=== PATIENT | female | born 1955 | race Caucasian/White ===

== ENCOUNTER 2017-01-12 08:45 | Emergency (ER) | payer OTHER ==
[~2017-01-12] VITALS: Ht 162.6 cm; Wt 109.0 kg
[~2017-01-12 08:45] MED LIST: CEFD1CAP14 PO; LISI-461 PO; SIMV20TA2 PO; ZOLP5TAB6 PO
[2017-01-12 08:50] VITALS: TEMP 36.8; Ht 162.6 cm; Wt 109.0 kg
--- NOTE | 2017-01-12 09:34 | EMERGENCY ROOM VISIT NOTE ---
History Report prepared by Baljit: Tala Kolb Under the Supervision of: Dr. Niels Garcia M.D. First contact with patient: 08:55 Chief Complaint: MENTAL HEALTH EVALUATION Stated Complaint: MR History of Present Illness The patient is a 61 year old female who presents to the Emergency Room with complaints of the need for a mental health evaluation. The patient states that this morning she was woken by police asking her to come to the emergency department for further evaluation. Per the [facility] petition, the other tenets in the patient's apartment building have been concerned about the patient's hoarding and insomnia. The patient states that she has a history of bi-polar and states that she follows with a psychiatrist. She additionally notes a recent sinus cold and states that she was placed on antibiotics two weeks ago. The patient states that she was placed on Doxycycline on Wednesday after she broke three teeth. The patient does note that she has a history of insomnia and states that she is on Remeron to help with sleep. She notes that last November she had a stroke and was unable to work anymore. The patient states that due to this she lost everything and was living with friends until she got her social security in March. She states that typically she is easy to get along with, but ever since she moved into her apartment building, the other tenets do not get along with her. The patient states that every day there is something new and is unsure where it is all coming from. Source of History: patient Onset: this morning Position: other (global) Timing: other (mental health evaluation) Note: Associated Symptoms: insomnia Review of Systems See HPI for pertinent positives & negatives. A total of 10 systems reviewed and were otherwise negative. Past Medical & Surgical Medical Problems: (1) CVA (cerebral vascular accident) Family History No pertinent family history stated. Social History Smoking Status: Current Every Day Smoker Housing Status: lives alone Occupation Status: unemployed Current/Historical Medications Scheduled Clindamycin Hcl (Cleocin), 300 MG PO QID Lisinopril (Zestril), 10 MG PO DAILY Pioglitazone (Actos), 1 TAB PO DAILY Simvastatin (Zocor), 20 MG PO QPM Sitagliptin Phosphate (Januvia), 100 MG PO DAILY Scheduled PRN Mirtazapine (Remeron), 30-45 MG PO HS PRN for Sleep Allergies Coded Allergies: Codeine (Verified Allergy, Unknown, ., 01/12/17) Penicillins (Verified Allergy, Unknown, ., 01/12/17) Uncoded Allergies: METHIOLATE (Allergy, Unknown, 11/02/02) Physical Exam Vital Signs Date Time Temp Pulse Resp B/P Pulse Ox O2 Delivery O2 Flow Rate FiO2 01/12/17 13:58 92 18 181/71 99 Room Air 01/12/17 10:15 96 20 145/98 95 Room Air 01/12/17 08:50 36.8 100 20 196/96 94 Room Air Physical Exam GENERAL: Patient is coughing on exam, healthy-appearing well-nourished HEAD: Normocephalic atraumatic EYES: Ocular movements intact pupils equal and react to light OROPHARYNX mucous membranes are moist no exudates present no erythema or edema present NECK: Supple no nuchal rigidity CHEST: Good equal expansion LUNGS: Clear and equal to auscultation CARDIAC: Normal S1 and S2 ABDOMEN: Soft nontender no guarding BACK: No CVA tenderness EXTREMITIES: No pain upon palpation normal muscle strength in all groups no clubbing cyanosis or edema NEURO: Patient is following commands is answering questions appropriately. Alert and oriented x3 Cranial Nerves 2-12 grossly intact Medical Decision & Procedures ER Provider Diagnostic Interpretation: X-ray results as stated below per interpretation by me and the radiologist: SINGLE VIEW CHEST CLINICAL HISTORY: Cough. FINDINGS: An AP, portable, upright chest radiograph is compared to chest x-ray and chest CT dated 12/05/2015. The examination is degraded by portable technique, large body habitus, and patient rotation. The heart is mildly enlarged. The pulmonary vasculature is noncongested. There is mild left basilar atelectasis. The lungs and pleural spaces are otherwise clear. No pneumothorax is seen. The skeletal structures are osteopenic. The bony thorax is grossly intact. IMPRESSION: No active disease in the chest. Electronically signed by: Rl Holliday M.D. 01/12/2017 10:16 AM Dictated Date/Time: 01/12/2017 10:13 AM Laboratory Results 01/12/17 09:20 Red Blood Count 4.89, Mean Corpuscular Volume 85.9, Mean Corpuscular Hemoglobin 28.0, Mean Corpuscular Hemoglobin Concent 32.6, Mean Platelet Volume 8.8, Neutrophils (%) (Auto) 64.3, Lymphocytes (%) (Auto) 27.7, Monocytes (%) (Auto) 5.1, Eosinophils (%) (Auto) 2.0, Basophils (%) (Auto) 0.5, Neutrophils # (Auto) 6.82, Lymphocytes # (Auto) 2.93, Monocytes # (Auto) 0.54, Eosinophils # (Auto) 0.21, Basophils # (Auto) 0.05 01/12/17 09:20 Test 01/12/17 09:20 01/12/17 09:21 01/12/17 10:07 White Blood Count 10.59 K/uL (4.8-10.8) Red Blood Count 4.89 M/uL (4.2-5.4) Hemoglobin 13.7 g/dL (12.0-16.0) Hematocrit 42.0 % (37-47) Mean Corpuscular Volume 85.9 fL (80-100) Mean Corpuscular Hemoglobin 28.0 pg (25-34) Mean Corpuscular Hemoglobin Concent 32.6 g/dl (32-36) Platelet Count 275 K/uL (130-400) Mean Platelet Volume 8.8 fL (7.4-10.4) Neutrophils (%) (Auto) 64.3 % Lymphocytes (%) (Auto) 27.7 % Monocytes (%) (Auto) 5.1 % Eosinophils (%) (Auto) 2.0 % Basophils (%) (Auto) 0.5 % Neutrophils # (Auto) 6.82 K/uL (1.4-6.5) Lymphocytes # (Auto) 2.93 K/uL (1.2-3.4) Monocytes # (Auto) 0.54 K/uL (0.11-0.59) Eosinophils # (Auto) 0.21 K/uL (0-0.5) Basophils # (Auto) 0.05 K/uL (0-0.2) RDW Standard Deviation 42.9 fL (36.4-46.3) RDW Coefficient of Variation 13.8 % (11.5-14.5) Immature Granulocyte % (Auto) 0.4 % Immature Granulocyte # (Auto) 0.04 K/uL (0.00-0.02) Anion Gap 8.0 mmol/L (3-11) Est Creatinine Clear Calc Drug Dose 97.8 ml/min Estimated GFR () 104.0 Estimated GFR (Non- 89.8 BUN/Creatinine Ratio 11.0 (10-20) Calcium Level 9.7 mg/dl (8.5-10.1) Total Bilirubin 0.3 mg/dl (0.2-1) Direct Bilirubin < 0.1 mg/dl (0-0.2) Aspartate Amino Transf (AST/SGOT) 47 U/L (15-37) Alanine Aminotransferase (ALT/SGPT) 54 U/L (12-78) Alkaline Phosphatase 137 U/L (45-117) Total Protein 7.2 gm/dl (6.4-8.2) Albumin 3.3 gm/dl (3.4-5.0) Thyroid Stimulating Hormone (TSH) 1.140 uIu/ml (0.300-4.500) Ethyl Alcohol mg/dL < 3.0 mg/dl (0-3) Bedside Glucose 205 mg/dl (70-90) Urine Color YELLOW Urine Appearance CLEAR (CLEAR) Urine pH 6.0 (4.5-7.5) Urine Specific [place] 1.019 (1.000-1.030) Urine Protein NEG (NEG) Urine Glucose (UA) NEG (NEG) Urine Ketones NEG (NEG) Urine Occult Blood NEG (NEG) Urine Nitrite NEG (NEG) Urine Bilirubin NEG (NEG) Urine Urobilinogen NEG (NEG) Urine Leukocyte Esterase TRACE (NEG) Urine WBC (Auto) 1-5 /hpf (0-5) Urine RBC (Auto) 0-4 /hpf (0-4) Urine Hyaline Casts (Auto) 0 /lpf (0-5) Urine Epithelial Cells (Auto) >30 /lpf (0-5) Urine Bacteria (Auto) NEG (NEG) Urine Opiates Screen NEG (NEG) Urine Methadone, Qualitative NEG (NEG) Urine Barbiturates NEG (NEG) Urine Phencyclidine (PCP) Level NEG (NEG) Ur Amphetamine/Methamphetamine NEG (NEG) MDMA (Ecstasy) Screen NEG (NEG) Urine Benzodiazepines Screen NEG (NEG) Urine Cocaine Metabolite NEG (NEG) Urine Marijuana (THC) NEG (NEG) Labs reviewed by ED physician. Medications Administered Medications (Trade) Dose Ordered Sig/Thi Route Start Time Stop Time Status Last Admin Dose Admin Albuterol Sulfate (Ventolin 0.5% 2.5MG/0.5ML Neb) 2.5 mg NOW STAT INH 01/12/17 09:35 01/12/17 09:37 DC 01/12/17 09:55 2.5 MG Acetaminophen (Tylenol Tab) 1,000 mg NOW STAT PO 01/12/17 11:37 01/12/17 11:38 DC 01/12/17 12:11 1,000 MG ED Course 09: Past medical records reviewed. The patient was evaluated in room A5. A complete history and physical examination was performed. 0935: Ordered Albuterol Sulfate 2.5 mg INH. 1137: Ordered Tylenol Tab 1000 mg PO. 1410: I reevaluated the patient and she is doing well. I discussed all the exam findings with her and I discussed the treatment plan. She verbalized complete understanding and agreement. She is ready to go home. Medical Decision Differential diagnosis: Etiologies such as mood disorder, infection, hypoglycemia, electrolyte abnormalities, cardiac sources, intracerebral event, toxicologic, neurologic, as well as others were entertained. This is a 61-year-old female who presents emergency department under a 302 petition however upon arrival to the emergency department the patient has no evidence of suicidal or homicidal ideation. In addition according to the 302 the patient has no evidence of suicidal or homicidal ideation. There was also no assessment done in the field. I felt that the patient was mentally stable and is following up with her outpatient psychiatrist. For this reason she was evaluated by case management here in the emergency department who also felt that the patient was well enough to be discharged home. She was medically cleared by me. She was wheezing and therefore was given a breathing treatment in the emergency department. I do feel that the patient as well as to be discharged home. Patient was in agreement with the treatment plan. Impression Primary Impression: Mood disorder Scribe Attestation The scribe's documentation has been prepared under my direction and personally reviewed by me in its entirety. I confirm that the note above accurately reflects all work, treatment, procedures, and medical decision making performed by me. Departure Information Dispostion Home / Self-Care Referrals Chuy Clemente D.O. (PCP) Forms HOME CARE DOCUMENTATION FORM, IMPORTANT VISIT INFORMATION, School Instructions, Work Instructions Patient Instructions My [facility] Additional Instructions You received narcotic or benzodiazepene medication while in the emergency room today. Do not drive, operate heavy machinery, or drink alcohol under the influence of this medication. You have been examined and treated today on an emergency basis only. This is not a substitute for, or an effort to provide, complete comprehensive medical care. It is impossible to recognize and treat all injuries or illnesses in a single emergency department visit. It is therefore important that you follow up closely with Dr Clemente. Call as soon as possible for an appointment. Thank you for your time and consideration. I look forward to speaking with you again soon. Please don't hesitate to call us if you have any questions.
[2017-01-12] MEDS ORDERED: ALBUTEROL 0.5% NEB SOLN 2.5 MG/0.5 ML VIAL INH STA (09:35)
[2017-01-12 09:42] LABS: BASO % 0.5 %; BASO ABS # 0.05 K/uL (0-0.2); COMPLETE YES; IG% 0.4 %; LYMPH % 27.7 %; LYMPH ABS # 2.93 K/uL (1.2-3.4); MEAN CELL VOLUME 85.9 fL (80-100); MEAN CORPUSCULAR HGB CONC 32.6 g/dl (32-36); MEAN PLATELET VOLUME 8.8 fL (7.4-10.4); MONO % 5.1 %; NEUT % 64.3 %; PLATELET COUNT 275 K/uL (130-400); RED BLOOD COUNT 4.89 M/uL (4.2-5.4); WHITE BLOOD COUNT 10.59 K/uL (4.8-10.8)
[2017-01-12 10:01] LABS: CALCIUM 9.7 mg/dl (8.5-10.1)
[2017-01-12 10:06] LABS: ALT/SGPT 54 U/L (12-78); BLOOD UREA NITROGEN 8 mg/dl (7-18); CARBON DIOXIDE 25 mmol/L (21-32); CHLORIDE 105 mmol/L (98-107); CREATININE 0.72 mg/dl (0.60-1.20); GLUCOSE 217 mg/dl (70-99); POTASSIUM 4.1 mmol/L (3.5-5.1); SODIUM 138 mmol/L (136-145)
[2017-01-12 10:16] LABS: ALKALINE PHOSPHATASE 137 U/L (45-117); AST/SGOT 47 U/L (15-37)
--- NOTE | 2017-01-12 10:18 | DIAGNOSTIC IMAGING REPORT ---
SINGLE VIEW CHEST CLINICAL HISTORY: Cough. FINDINGS: An AP, portable, upright chest radiograph is compared to chest x-ray and chest CT dated 12/05/2015. The examination is degraded by portable technique, large body habitus, and patient rotation. The heart is mildly enlarged. The pulmonary vasculature is noncongested. There is mild left basilar atelectasis. The lungs and pleural spaces are otherwise clear. No pneumothorax is seen. The skeletal structures are osteopenic. The bony thorax is grossly intact. IMPRESSION: No active disease in the chest. Electronically signed by: Rl Holliday M.D. 01/12/2017 10:16 AM Dictated Date/Time: 01/12/2017 10:13 AM
[2017-01-12 10:26] LABS: MANUAL MICROSCOPIC REQUIRED? NO; REVIEW REQ? NO; URINE APPEARANCE CLEAR (CLEAR); URINE BILIRUBIN NEG (NEG); URINE COLOR YELLOW; URINE EPITHELIAL CELL AUTO >30 /lpf (0-5); URINE NITRITE NEG (NEG); URINE SPECIFIC GRAVITY 1.019 (1.000-1.030); UROBILINOGEN NEG (NEG)
[2017-01-12] MEDS ORDERED: MIRT30TA PO (10:32)
[2017-01-12] MEDS ORDERED: SITA100T3 PO (10:43)
[2017-01-12] MEDS ORDERED: CLIN300C2 PO (10:43)
[2017-01-12] MEDS ORDERED: ACT30 PO (10:43)
[2017-01-12 10:56] LABS: BENZODIAZEPINE, URINE NEG (NEG); COCAINE,URINE NEG (NEG); PHENCYCLIDINE, URINE NEG (NEG)
[2017-01-12] MEDS ORDERED: ACETAMINOPHEN 500 MG TAB PO STA (11:37)
[2017-01-12 13:58] VITALS: BP 181/71; PULSE 92; O2SAT 99
== END 2017-01-12 14:35 | disposition home or self-care (01) ==
LOC: C.EDB 08:47 → C.EDA 14:35
DX: Z00.8 Encounter for other general examination (principal); F31.9 Bipolar disorder, unspecified; Z86.73 Personal history of transient ischemic attack (TIA), and cerebral infarction without residual deficits; F17.210 Nicotine dependence, cigarettes, uncomplicated; R05 Cough

== ENCOUNTER 2017-05-05 11:02 | Emergency (ER) | payer OTHER ==
[~2017-05-05] VITALS: Ht 162.6 cm; Wt 66.4 kg
[~2017-05-05 11:02] MED LIST changes: +ACT30 PO; -CEFD1CAP14 PO; +CLIN300C2 PO; +MIRT30TA PO; +SITA100T3 PO; -ZOLP5TAB6 PO
[2017-05-05 11:10] VITALS: TEMP 36.8
[2017-05-05] MEDS ORDERED: SODIUM CHLORIDE 0.9% 1000ML 1,000 ML IV STA ×2 (11:24)
[2017-05-05] MEDS ORDERED: INSULIN HUMAN REGULAR SC STA (11:24)
[2017-05-05] MEDS ORDERED: PROCHLORPERAZINE 5 MG/ML 2 ML VIAL IV STA (11:24)
[2017-05-05] MEDS ORDERED: KETOROLAC TROMETHAMINE 30 MG/ML VIAL IV STA (11:24)
[2017-05-05] MEDS ORDERED: DiphenhydrAMINE HCL 50 MG/ML VIAL IV STA (11:24)
--- NOTE | 2017-05-05 11:30 | EMERGENCY ROOM VISIT NOTE ---
History Report prepared by Baljit: Sarahi Aguilar Under the Supervision of: Dr. Niels Garcia M.D. First contact with patient: 11:08 Chief Complaint: ILLNESS Stated Complaint: GENERALIZED ILLNESS History of Present Illness The patient is a 62 year old female who presents to the Emergency Room with complaints of a fever beginning today. The patient also complains of a constant headache and achiness. The patient also is having abdominal pain and states that she is unable to focus when she reads. She denies having chest pain. She reports that she has not taken any medications for her symptoms. Source of History: patient Onset: today Position: other (global) Quality: other (fever) Associated Symptoms: + headache, + abdominal pain, No chest pain Review of Systems See HPI for pertinent positives & negatives. A total of 10 systems reviewed and were otherwise negative. Past Medical & Surgical Medical Problems: (1) CVA (cerebral vascular accident) (2) History of non-insulin dependent diabetes mellitus Family History No pertinent family history stated. Social History Smoking Status: Former Smoker Housing Status: lives alone Occupation Status: unemployed Current/Historical Medications Scheduled Lisinopril (Zestril), 10 MG PO DAILY Pioglitazone (Actos), 1 TAB PO DAILY Simvastatin (Zocor), 20 MG PO QPM Sitagliptin Phosphate (Januvia), 100 MG PO DAILY Scheduled PRN Mirtazapine (Remeron), 30-45 MG PO HS PRN for Sleep Allergies Coded Allergies: Codeine (Verified Allergy, Unknown, ., 01/12/17) Penicillins (Verified Allergy, Unknown, ., 01/12/17) Uncoded Allergies: METHIOLATE (Allergy, Unknown, 11/02/02) Physical Exam Vital Signs Date Time Temp Pulse Resp B/P (MAP) Pulse Ox O2 Delivery O2 Flow Rate FiO2 05/05/17 15:57 91 17 129/73 95 05/05/17 15:05 87 18 143/67 93 Room Air 05/05/17 13:53 93 05/05/17 13:38 92 18 144/75 95 Room Air 05/05/17 12:38 90 16 114/71 96 Room Air 96 107/75 93 109/59 05/05/17 11:48 96 Room Air 05/05/17 11:10 92 05/05/17 11:10 36.8 94 18 99/40 96 Room Air Physical Exam GENERAL: Patient is a healthy-appearing well-nourished female HEAD: Normocephalic atraumatic EYES: Ocular movements intact pupils equal and react to light OROPHARYNX mucous membranes are moist no exudates present no erythema or edema present NECK: Supple no nuchal rigidity CHEST: Good equal expansion LUNGS: Clear and equal to auscultation CARDIAC: Normal S1 and S2 ABDOMEN: Soft nontender no guarding BACK: No CVA tenderness EXTREMITIES: No pain upon palpation normal muscle strength in all groups no clubbing cyanosis or edema NEURO: Patient is following commands and answering questions appropriately. Alert and oriented x3 Cranial Nerves 2-12 grossly intact Medical Decision & Procedures ER Provider Diagnostic Interpretation: Radiology results as stated below per my review and radiologist interpretation: CT HEAD WITHOUT CONTRAST (CT) CLINICAL HISTORY: Headache, nausea. COMPARISON STUDY: 12/05/2015 TECHNIQUE: Axial CT of the brain is performed from the vertex to the skull base. IV contrast was not administered for this examination. A dose lowering technique was utilized adhering to the principles of ALARA. CT DOSE: 614.27 mGy.cm FINDINGS: No intra or extra-axial mass lesions are visualized. There is no CT evidence of acute cortical infarction. There is no evidence of midline shift. There is no acute hemorrhage. No calvarial fractures are visualized. There is no evidence of pathologic ventricular dilatation. There is no evidence of acute sinusitis IMPRESSION: No acute intracranial findings Electronically signed by: César Vital M.D. 05/05/2017 12:25 PM Dictated Date/Time: 05/05/2017 12:24 PM Laboratory Results 05/05/17 11:24 Red Blood Count 4.82, Mean Corpuscular Volume 85.7, Mean Corpuscular Hemoglobin 28.8, Mean Corpuscular Hemoglobin Concent 33.7, Mean Platelet Volume 8.8, Neutrophils (%) (Auto) 78.0, Lymphocytes (%) (Auto) 15.5, Monocytes (%) (Auto) 5.1, Eosinophils (%) (Auto) 0.6, Basophils (%) (Auto) 0.4, Neutrophils # (Auto) 8.77, Lymphocytes # (Auto) 1.74, Monocytes # (Auto) 0.57, Eosinophils # (Auto) 0.07, Basophils # (Auto) 0.04 8/16/17 11:24 Test 05/05/17 11:24 05/05/17 11:40 05/05/17 12:05 05/05/17 13:53 White Blood Count 11.23 K/uL (4.8-10.8) Red Blood Count 4.82 M/uL (4.2-5.4) Hemoglobin 13.9 g/dL (12.0-16.0) Hematocrit 41.3 % (37-47) Mean Corpuscular Volume 85.7 fL (80-100) Mean Corpuscular Hemoglobin 28.8 pg (25-34) Mean Corpuscular Hemoglobin Concent 33.7 g/dl (32-36) Platelet Count 216 K/uL (130-400) Mean Platelet Volume 8.8 fL (7.4-10.4) Neutrophils (%) (Auto) 78.0 % Lymphocytes (%) (Auto) 15.5 % Monocytes (%) (Auto) 5.1 % Eosinophils (%) (Auto) 0.6 % Basophils (%) (Auto) 0.4 % Neutrophils # (Auto) 8.77 K/uL (1.4-6.5) Lymphocytes # (Auto) 1.74 K/uL (1.2-3.4) Monocytes # (Auto) 0.57 K/uL (0.11-0.59) Eosinophils # (Auto) 0.07 K/uL (0-0.5) Basophils # (Auto) 0.04 K/uL (0-0.2) RDW Standard Deviation 43.4 fL (36.4-46.3) RDW Coefficient of Variation 13.9 % (11.5-14.5) Immature Granulocyte % (Auto) 0.4 % Immature Granulocyte # (Auto) 0.04 K/uL (0.00-0.02) Anion Gap 9.0 mmol/L (3-11) Est Creatinine Clear Calc Drug Dose 56.8 ml/min Estimated GFR () 73.9 Estimated GFR (Non- 63.7 BUN/Creatinine Ratio 9.8 (10-20) Calcium Level 8.6 mg/dl (8.5-10.1) Total Bilirubin 0.5 mg/dl (0.2-1) Direct Bilirubin 0.1 mg/dl (0-0.2) Aspartate Amino Transf (AST/SGOT) 32 U/L (15-37) Alanine Aminotransferase (ALT/SGPT) 48 U/L (12-78) Alkaline Phosphatase 169 U/L (45-117) Total Protein 6.9 gm/dl (6.4-8.2) Albumin 3.2 gm/dl (3.4-5.0) Beta-Hydroxybutyric Acid 1.08 mg/dL (0.2-2.81) Thyroid Stimulating Hormone (TSH) 0.829 uIu/ml (0.300-4.500) Lyme Disease IgG Antibody NEG (NEG) Lyme Disease IgM Antibody NEG (NEG) Urine Color YELLOW Urine Appearance CLEAR (CLEAR) Urine pH 7.0 (4.5-7.5) Urine Specific [place] 1.010 (1.000-1.030) Urine Protein NEG (NEG) Urine Glucose (UA) 3+ (NEG) Urine Ketones NEG (NEG) Urine Occult Blood NEG (NEG) Urine Nitrite NEG (NEG) Urine Bilirubin NEG (NEG) Urine Urobilinogen NEG (NEG) Urine Leukocyte Esterase NEG (NEG) Influenza Type A (RT-PCR) Neg for Influ A (NEG) Influenza Type A Antigen Neg for Influ A (NEG) Influenza Type B Antigen Neg for Influ B (NEG) Influenza Type B (RT-PCR) Neg for Influ B (NEG) CSF Color PALE YELLOW CSF Appearance CLEAR CSF WBC 4 /uL (0-5) CSF RBC 1070 /uL (0) CSF Xanthrochromic NO XANTHOCHROMIA CSF Cell Count Tube # 1 CSF Chemistry Tube # 2 CSF Glucose 109 mg/dl (40-70) CSF Total Protein 37.1 mg/dl (15.0-45.0) Test 05/05/17 14:15 Bedside Glucose 173 mg/dl (70-90) Labs reviewed by ED physician. Medications Administered Medications (Trade) Dose Ordered Sig/Thi Route Start Time Stop Time Status Last Admin Dose Admin Sodium Chloride 1,000 ml @ 999 mls/hr Q1H1M STAT IV 05/05/17 11:24 05/05/17 12:24 DC 05/05/17 11:57 999 MLS/HR Ketorolac Tromethamine (Toradol Inj) 30 mg NOW STAT IV 05/05/17 11:24 05/05/17 11:30 DC 05/05/17 12:02 30 MG Prochlorperazine Edisylate (Compazine Inj) 10 mg NOW STAT IV 05/05/17 11:24 05/05/17 11:30 DC 05/05/17 12:02 10 MG Diphenhydramine HCl (Benadryl Inj) 50 mg NOW STAT IV 05/05/17 11:24 05/05/17 11:30 DC 05/05/17 12:02 50 MG Sodium Chloride 1,000 ml @ 999 mls/hr Q1H1M STAT IV 05/05/17 11:24 05/05/17 12:24 DC 05/05/17 11:57 999 MLS/HR Insulin Human Regular (novoLIN-R U-100 PER UNIT) 10 units NOW STAT SC 05/05/17 11:48 05/05/17 11:49 DC 05/05/17 12:02 10 UNITS Acetaminophen (Tylenol Tab) 1,000 mg NOW STAT PO 05/05/17 13:30 05/05/17 13:31 DC 05/05/17 14:02 1,000 MG Magnesium Sulfate (Magnesium Sulfate) 1 gm NOW STAT IV 05/05/17 13:52 05/05/17 13:54 DC 05/05/17 14:02 1 GM Dexamethasone Sodium Phosphate (Decadron Inj) 10 mg NOW ONCE IV 05/05/17 14:00 05/05/17 14:01 DC 05/05/17 14:02 10 MG Procedure Lumbar Puncture Indication: headache. Verbal consent was obtained after the risks and benefits were explained, including but not limited to headache, bleeding/clotting, scarring, infection, pain, and bone/joint/nerve damage. At this time, the risks of the procedure are less than the risks of NOT performing the procedure. A time out was taken and the correct patient and site identified. The patient was placed in the upright position and the back was prepped with betadine and draped in the standard fashion. The L3 intervertebral space was identified, anesthetized locally with 1 % lidocaine without epinephrine, and the spinal needle was inserted through the skin with the bevel parallel to the dural fibers. The needle was carefully advanced into the lumbar cistern and 4 tubes of clear CSF was obtained. The stylet was replaced and the needle was removed. A bandaid was placed and the patient was placed in the supine position. The patient tolerated the procedure well and there were no complications. ECG Indication: weakness Rate (beats per minute): 91 Rhythm: normal sinus Findings: no acute ischemic change, no ectopy ED Course 1120: Past medical records reviewed. The patient was evaluated in room C5. A complete history and physical examination was performed. 1124: Ordered Sodium Chloride 1,000 ml @ 999 mls/hr IV, Insulin Human Regular 10 units SC, Benadryl Inj 50 mg IV, Compazine Inj 10 mg IV, Toradol Inj 30 mg IV , Sodium Chloride 1,000 ml @ 999 mls/hr IV. Medical Decision Differential diagnosis: Etiologies such as viral syndrome, otitis, pharyngitis, pneumonia, influenza, meningitis, urinary tract infection, sepsis, bacteremia, as well as others were entertained. This is a 62-year-old female who presents emergency department complaining of the worst headache of her life. In addition the patient is also has an elevation in her white blood count cell count. I try to get the patient's symptoms under control using conservative measures including normal saline bolus , Toradol, Compazine, Benadryl however the patient still complaining of severe headache. At this point based on the patient's complaint as well as her laboratory work I recommended a lumbar puncture be performed. The patient orally consented to the lumbar puncture and this was done as above. The patient 's lumbar puncture laboratory work I believe is normal. The patient is hyperglycemic and was given insulin in the emergency department. She was given additional pain medication and fluid for her headache. At this point I do feel that the patient as well as that she can be discharged home for follow-up with her primary care physician. Patient was in agreement with the treatment plan. Medication Reconcilliation Current Medication List: was personally reviewed by me Blood Pressure Screening Patient's blood pressure: Low blood pressure Impression Primary Impression: Headache Scribe Attestation The scribe's documentation has been prepared under my direction and personally reviewed by me in its entirety. I confirm that the note above accurately reflects all work, treatment, procedures, and medical decision making performed by me. Departure Information Dispostion Home / Self-Care Referrals Chuy Clemente D.O. (PCP) Patient Instructions My [facility] Problem Qualifiers Primary Impression: Headache Headache type: unspecified Headache chronicity pattern: unspecified pattern Intractability: not intractable Qualified Codes: R51 - Headache
[2017-05-05 11:37] LABS: BASO % 0.4 %; BASO ABS # 0.04 K/uL (0-0.2); COMPLETE YES; EOS % 0.6 %; HEMATOCRIT 41.3 % (37-47); IG% 0.4 %; LYMPH % 15.5 %; LYMPH ABS # 1.74 K/uL (1.2-3.4); MEAN CELL VOLUME 85.7 fL (80-100); MEAN CORPUSCULAR HEMOGLOBIN 28.8 pg (25-34); MEAN CORPUSCULAR HGB CONC 33.7 g/dl (32-36); MEAN PLATELET VOLUME 8.8 fL (7.4-10.4); MONO % 5.1 %; PLATELET COUNT 216 K/uL (130-400); RED BLOOD COUNT 4.82 M/uL (4.2-5.4); WHITE BLOOD COUNT 11.23 K/uL (4.8-10.8)
[2017-05-05 11:48] VITALS: O2SAT 96; Ht 162.6 cm; Wt 66.4 kg
[2017-05-05] MEDS ORDERED: NovoLIN-R INSULIN PER UNIT CHARGE SC STA (11:48)
[2017-05-05 11:55] LABS: BUN/CREATININE RATIO 9.8 (10-20); CALCIUM 8.6 mg/dl (8.5-10.1); CREATININE 0.95 mg/dl (0.60-1.20); POTASSIUM 4.4 mmol/L (3.5-5.1)
[2017-05-05 12:05] LABS: BETA-HYDROXYBUTYRATE 1.08 mg/dL (0.2-2.81); THYROID STIMULATING HORMONE 0.829 uIu/ml (0.300-4.500)
[2017-05-05 12:05] LABS: URINE APPEARANCE CLEAR (CLEAR); URINE BILIRUBIN NEG (NEG); URINE COLOR YELLOW; URINE NITRITE NEG (NEG); UROBILINOGEN NEG (NEG)
[2017-05-05 12:14] LABS: MANUAL MICROSCOPIC REQUIRED? NO; REVIEW REQ? NO
--- NOTE | 2017-05-05 12:27 | DIAGNOSTIC IMAGING REPORT ---
CT HEAD WITHOUT CONTRAST (CT) CLINICAL HISTORY: Headache, nausea. COMPARISON STUDY: 12/05/2015 TECHNIQUE: Axial CT of the brain is performed from the vertex to the skull base. IV contrast was not administered for this examination. A dose lowering technique was utilized adhering to the principles of ALARA. CT DOSE: 614.27 mGy.cm FINDINGS: No intra or extra-axial mass lesions are visualized. There is no CT evidence of acute cortical infarction. There is no evidence of midline shift. There is no acute hemorrhage. No calvarial fractures are visualized. There is no evidence of pathologic ventricular dilatation. There is no evidence of acute sinusitis IMPRESSION: No acute intracranial findings Electronically signed by: César Vital M.D. 05/05/2017 12:25 PM Dictated Date/Time: 05/05/2017 12:24 PM
--- NOTE | 2017-05-05 13:16 | DIAGNOSTIC IMAGING REPORT ---
ABDOMEN 2VIEW W/PA CHEST RTN CLINICAL HISTORY: Diffuse abdominal pain COMPARISON STUDY: Chest x-ray dated 01/12/2017 FINDINGS: The heart is mildly enlarged. There is no free intraperitoneal air. There is no lobar consolidation. Erect and supine views the abdomen reveal moderate stool throughout the colon. There are no transition zone to indicate bowel obstruction. There are surgical clips in the right upper quadrant consistent with a prior cholecystectomy. IMPRESSION: No evidence of bowel obstruction. No evidence of free air. Electronically signed by: César Vital M.D. 05/05/2017 1:15 PM Dictated Date/Time: 05/05/2017 1:14 PM
[2017-05-05] MEDS ORDERED: ACETAMINOPHEN 500 MG TAB PO STA (13:30)
[2017-05-05] MEDS ORDERED: MAGNESIUM SULFATE 1GM / D5W 1 GM BAG IV STA (13:52)
[2017-05-05] MEDS ORDERED: DEXAMETHASONE SOD INJ 10 MG/ML VIAL IV ONE (14:00)
[2017-05-05 14:27] LABS: CSF TOTAL PROTEIN 37.1 mg/dl (15.0-45.0)
[2017-05-05 14:44] LABS: INFLUENZA A PCR Neg for Influ A (NEG); INFLUENZA B PCR Neg for Influ B (NEG)
[2017-05-05 14:46] LABS: CSF APPEARANCE CLEAR; CSF COLOR PALE YELLOW
[2017-05-05 14:49] LABS: CSF APPEARANCE CLEAR; CSF COLOR COLORLESS; CSF XANTHOCHROMIC NO XANTHOCHROMIA
[2017-05-05 15:03] LABS: CSF CHEMISTRY TUBE # 2
[2017-05-05 15:17] LABS: LYME DISEASE AB IGG NEG (NEG); LYME DISEASE AB IGM NEG (NEG)
[2017-05-05 15:22] LABS: CSF XANTHOCHROMIC NO XANTHOCHROMIA
[2017-05-05 15:57] VITALS: BP 129/73; PULSE 91; O2SAT 95
[2017-05-08 17:36] LABS: HSV TYPE 1 DNA Not Detected (Not Detected); HSV TYPE 1&2 DNA SOURCE CSF; HSV TYPE 2 DNA Not Detected (Not Detected); LYME DNA PCR CSF OR SYNOVIAL Not detected (Not Detected); LYME DNA SOURCE CSF
== END 2017-05-05 15:59 | disposition home or self-care (01) ==
LOC: EDBD 11:02 → C.EDC 11:04
DX: R51 Headache (principal); E11.9 Type 2 diabetes mellitus without complications; Z86.73 Personal history of transient ischemic attack (TIA), and cerebral infarction without residual deficits; Z79.899 Other long term (current) drug therapy; Z87.891 Personal history of nicotine dependence; Z88.0 Allergy status to penicillin; Z88.5 Allergy status to narcotic agent

== ENCOUNTER 2017-11-17 11:43 | Inpatient (IN) | payer OTHER ==
[~2017-11-17] VITALS: Ht 160 cm; Wt 108.0 kg
[~2017-11-17 11:43] MED LIST changes: -CLIN300C2 PO
[2017-11-17 12:29] LABS: BASO % 0.5 %; BASO ABS # 0.04 K/uL (0-0.2); EOS % 1.4 %; EOS ABS # 0.12 K/uL (0-0.5); HEMATOCRIT 41.4 % (37-47); HEMOGLOBIN 14.5 g/dL (12.0-16.0); IG# 0.03 K/uL (0.00-0.02); LYMPH % 26.7 %; MEAN CELL VOLUME 82.1 fL (80-100); MEAN CORPUSCULAR HEMOGLOBIN 28.8 pg (25-34); MEAN PLATELET VOLUME 8.8 fL (7.4-10.4); MONO % 6.7 %; MONO ABS # 0.58 K/uL (0.11-0.59); NEUT % 64.4 %; NEUT ABS # 5.54 K/uL (1.4-6.5); PLATELET COUNT 215 K/uL (130-400); RED CELL DISTRIBUTION WIDTH CV 13.9 % (11.5-14.5); RED CELL DISTRIBUTION WIDTH SD 41.7 fL (36.4-46.3); WHITE BLOOD COUNT 8.61 K/uL (4.8-10.8)
--- NOTE | 2017-11-17 12:39 | DIAGNOSTIC IMAGING REPORT ---
HEAD WITHOUT CONTRAST (CT) CLINICAL HISTORY: 62 years-old Female presenting with EVALUATE ALTERED MENTAL STATUS/WEAKNESS. TECHNIQUE: Multidetector CT imaging of the head was performed without the use of intravenous contrast. IV contrast: None. A dose lowering technique was used consistent with the principles of ALARA (as low as reasonably achievable). COMPARISON: 05/05/2017. CT DOSE (mGy.cm): The estimated cumulative dose is 614.27 mGy.cm. 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 Ventricles and sulci normal in size. Brain parenchyma normal in appearance with preserved dotson-white differentiation. No mass effect or midline shift. No hemorrhage or acute territorial infarct. No extra-axial fluid collection. Paranasal sinuses and mastoid air cells clear. Calvarium intact. IMPRESSION: 1. No acute intracranial abnormality. Electronically signed by: Walker Newman M.D. 11/17/2017 12:38 PM Dictated Date/Time: 11/17/2017 12:36 PM
[2017-11-17 12:43] LABS: INR 0.9 (0.9-1.1); PTT PATIENT 24.3 SECONDS (21.0-31.0)
--- NOTE | 2017-11-17 12:45 | DIAGNOSTIC IMAGING REPORT ---
CHEST ONE VIEW PORTABLE CLINICAL HISTORY: EVALUATE ALTERED MENTAL STATUS/WEAKNESS dyspnea COMPARISON STUDY: 05/05/2017 FINDINGS: The bones soft tissues and hemidiaphragms are normal. The cardiomediastinal silhouette is normal. The lungs are clear. The pulmonary vasculature is normal. IMPRESSION: Negative chest. The above report was generated using voice recognition software. It may contain grammatical, syntax or spelling errors. Electronically signed by: Seven Gallardo M.D. 11/17/2017 12:44 PM Dictated Date/Time: 11/17/2017 12:44 PM
[2017-11-17 12:48] LABS: ALBUMIN 3.4 gm/dl (3.4-5.0); ALT/SGPT 36 U/L (12-78); BLOOD UREA NITROGEN 12 mg/dl (7-18); CALCIUM 9.4 mg/dl (8.5-10.1); CARBON DIOXIDE 25 mmol/L (21-32); CREATININE 0.78 mg/dl (0.60-1.20); GLUCOSE 147 mg/dl (70-99); LIPASE 165 U/L (73-393); SODIUM 137 mmol/L (136-145)
[2017-11-17 12:57] LABS: ALKALINE PHOSPHATASE 127 U/L (45-117); AST/SGOT 24 U/L (15-37); CKMB 2.3 ng/ml (0.5-3.6); TOTAL PROTEIN 7.2 gm/dl (6.4-8.2)
[2017-11-17] MEDS ORDERED: CEFTRIAXONE SOD INJ 1 GM ADDVIAL IV STA (14:48)
--- NOTE | 2017-11-17 14:57 | EMERGENCY ROOM VISIT NOTE ---
History Report prepared by Baljit: Niharika Davis Under the Supervision of: Dr. Niels Irene D.O. First contact with patient: 12:00 Chief Complaint: STROKE SYMPTOMS Stated Complaint: ALTERED MENTAL STATUS History of Present Illness The patient is a 62 year old female who presents to the Emergency Room with complaints of an episode of stroke-like symptoms beginning just STEM CRUSHER. Per nursing staff, police responded to a call for an emotional person on a sidewalk in [place]. When they arrived on scene they found the patient to be weak and confused. EMS was called. EMS reports a possible facial droop. The patient states that she has been feeling unwell for the past month. She is currently complaining of a headache behind her left eye. She feels generally weak. She typically uses a walker to get around but states that she doesn't walk around much. The patient denies nausea, vomiting, diarrhea, chest pain, and shortness of breath. Source of History: patient, EMS, nursing staff Onset: STEM CRUSHER Position: other (global) Quality: other (stroke-like) Timing: other (episode) Associated Symptoms: + headache, + weakness, No chest pain, No SOB, No nausea, No vomiting, No diarrhea Review of Systems See HPI for pertinent positives & negatives. A total of 10 systems reviewed and were otherwise negative. Past Medical & Surgical Medical Problems: (1) Bipolar disorder, unspecified (2) CVA (cerebral vascular accident) (3) History of non-insulin dependent diabetes mellitus (4) Type 2 diabetes mellitus without complications Family History No pertinent history stated. Social History Smoking Status: Former Smoker Housing Status: lives with roommate Occupation Status: unemployed Current/Historical Medications Scheduled Lisinopril (Zestril), 10 MG PO DAILY Pioglitazone (Actos), 1 TAB PO DAILY Simvastatin (Zocor), 20 MG PO QPM Sitagliptin Phosphate (Januvia), 100 MG PO DAILY Scheduled PRN Mirtazapine (Remeron), 30-45 MG PO HS PRN for Sleep Allergies Coded Allergies: Codeine (Verified Allergy, Unknown, ., 01/12/17) Penicillins (Verified Allergy, Unknown, ., 01/12/17) Uncoded Allergies: METHIOLATE (Allergy, Unknown, 11/02/02) Physical Exam Vital Signs Date Time Temp Pulse Resp B/P (MAP) Pulse Ox O2 Delivery O2 Flow Rate FiO2 11/17/17 14:31 82 20 142/84 96 Room Air 11/17/17 13:08 95 20 161/97 96 Room Air 11/17/17 11:45 37.5 95 20 206/135 96 Room Air Physical Exam VITAL SIGNS: were reviewed as above. GENERAL:Non-toxic in appearance. Generalized weakness appears to be feigning weakness. SKIN: Warm dry and pink. HEAD: Normocephalic and atraumatic. OROPHARYNX: Is clear and moist NECK: Supple without lymphadenopathy or meningismus. LUNGS: clear. HEART: Regular rate and rhythm. ABDOMEN: Soft and nontender. EXTREMITIES: Warm and well perfused. NEUROLOGICALLY: Awake alert and oriented without focal deficit. Cranial nerves 2 -12 are intact. There is no pronator drift. Cerebellar testing is within normal limits. There is no nystagmus. There is no facial droop. Speech is clear. Vision is grossly normal. MUSCULOSKELETAL: Good muscle tone. No evidence of trauma. Medical Decision & Procedures ER Provider Diagnostic Interpretation: Radiology results as stated below per my review and radiologist interpretation: HEAD WITHOUT CONTRAST (CT) CLINICAL HISTORY: 62 years-old Female presenting with EVALUATE ALTERED MENTAL STATUS/WEAKNESS. TECHNIQUE: Multidetector CT imaging of the head was performed without the use of intravenous contrast. IV contrast: None. A dose lowering technique was used consistent with the principles of ALARA (as low as reasonably achievable). COMPARISON: 05/05/2017. CT DOSE (mGy.cm): The estimated cumulative dose is 614.27 mGy.cm. FINDINGS: Match Up Worker topogram: Unremarkable. Ventricles and sulci normal in size. Brain parenchyma normal in appearance with preserved dotson-white differentiation. No mass effect or midline shift. No hemorrhage or acute territorial infarct. No extra-axial fluid collection. Paranasal sinuses and mastoid air cells clear. Calvarium intact. IMPRESSION: 1. No acute intracranial abnormality. Electronically signed by: Walker Newman M.D. 11/17/2017 12:38 PM Dictated Date/Time: 11/17/2017 12:36 PM CHEST ONE VIEW PORTABLE CLINICAL HISTORY: EVALUATE ALTERED MENTAL STATUS/WEAKNESS dyspnea COMPARISON STUDY: 05/05/2017 FINDINGS: The bones soft tissues and hemidiaphragms are normal. The cardiomediastinal silhouette is normal. The lungs are clear. The pulmonary vasculature is normal. IMPRESSION: Negative chest. The above report was generated using voice recognition software. It may contain grammatical, syntax or spelling errors. Electronically signed by: Seven Gallardo M.D. 11/17/2017 12:44 PM Dictated Date/Time: 11/17/2017 12:44 PM Laboratory Results 11/17/17 11:50 Red Blood Count 5.04, Mean Corpuscular Volume 82.1, Mean Corpuscular Hemoglobin 28.8, Mean Corpuscular Hemoglobin Concent 35.0, Mean Platelet Volume 8.8, Neutrophils (%) (Auto) 64.4, Lymphocytes (%) (Auto) 26.7, Monocytes (%) (Auto) 6.7, Eosinophils (%) (Auto) 1.4, Basophils (%) (Auto) 0.5, Neutrophils # (Auto) 5.54, Lymphocytes # (Auto) 2.30, Monocytes # (Auto) 0.58, Eosinophils # (Auto) 0.12, Basophils # (Auto) 0.04 11/17/17 11:50 Test 11/17/17 11:50 11/17/17 14:00 11/17/17 14:57 White Blood Count 8.61 K/uL (4.8-10.8) Red Blood Count 5.04 M/uL (4.2-5.4) Hemoglobin 14.5 g/dL (12.0-16.0) Hematocrit 41.4 % (37-47) Mean Corpuscular Volume 82.1 fL (80-100) Mean Corpuscular Hemoglobin 28.8 pg (25-34) Mean Corpuscular Hemoglobin Concent 35.0 g/dl (32-36) Platelet Count 215 K/uL (130-400) Mean Platelet Volume 8.8 fL (7.4-10.4) Neutrophils (%) (Auto) 64.4 % Lymphocytes (%) (Auto) 26.7 % Monocytes (%) (Auto) 6.7 % Eosinophils (%) (Auto) 1.4 % Basophils (%) (Auto) 0.5 % Neutrophils # (Auto) 5.54 K/uL (1.4-6.5) Lymphocytes # (Auto) 2.30 K/uL (1.2-3.4) Monocytes # (Auto) 0.58 K/uL (0.11-0.59) Eosinophils # (Auto) 0.12 K/uL (0-0.5) Basophils # (Auto) 0.04 K/uL (0-0.2) RDW Standard Deviation 41.7 fL (36.4-46.3) RDW Coefficient of Variation 13.9 % (11.5-14.5) Immature Granulocyte % (Auto) 0.3 % Immature Granulocyte # (Auto) 0.03 K/uL (0.00-0.02) Prothrombin Time 9.9 SECONDS (9.0-12.0) Prothromb Time International Ratio 0.9 (0.9-1.1) Activated Partial Thromboplast Time 24.3 SECONDS (21.0-31.0) Partial Thromboplastin Ratio 0.9 Anion Gap 8.0 mmol/L (3-11) Est Creatinine Clear Calc Drug Dose 87.0 ml/min Estimated GFR () 93.8 Estimated GFR (Non- 80.9 BUN/Creatinine Ratio 15.4 (10-20) Calcium Level 9.4 mg/dl (8.5-10.1) Magnesium Level 1.9 mg/dl (1.8-2.4) Total Bilirubin 0.5 mg/dl (0.2-1) Direct Bilirubin < 0.1 mg/dl (0-0.2) Aspartate Amino Transf (AST/SGOT) 24 U/L (15-37) Alanine Aminotransferase (ALT/SGPT) 36 U/L (12-78) Alkaline Phosphatase 127 U/L (45-117) Total Creatine Kinase 55 U/L (26-192) Creatine Kinase MB 2.3 ng/ml (0.5-3.6) Creatine Kinase MB Ratio 4.2 (0-3.0) Troponin I < 0.015 ng/ml (0-0.045) Total Protein 7.2 gm/dl (6.4-8.2) Albumin 3.4 gm/dl (3.4-5.0) Lipase 165 U/L (73-393) Thyroid Stimulating Hormone (TSH) 1.880 uIu/ml (0.300-4.500) Urine Color YELLOW Urine Appearance CLEAR (CLEAR) Urine pH 6.5 (4.5-7.5) Urine Specific Gabriels 1.011 (1.000-1.030) Urine Protein NEG (NEG) Urine Glucose (UA) NEG (NEG) Urine Ketones NEG (NEG) Urine Occult Blood NEG (NEG) Urine Nitrite POS (NEG) Urine Bilirubin NEG (NEG) Urine Urobilinogen NEG (NEG) Urine Leukocyte Esterase SMALL (NEG) Urine WBC (Auto) 10-30 /hpf (0-5) Urine RBC (Auto) 0-4 /hpf (0-4) Urine Hyaline Casts (Auto) 0 /lpf (0-5) Urine Epithelial Cells (Auto) 0-5 /lpf (0-5) Urine Bacteria (Auto) 4+ (NEG) Laboratory results as stated above per my review. ECG Per My Interpretation Indication: weakness Rate (beats per minute): 90 Rhythm: normal sinus Findings: no ectopy, other (no ST elevations) ED Course 1200: Previous medical records were reviewed. The patient was evaluated in room A9B. A complete history and physical examination was performed. 1411: I reassessed the patient and she is still complaining of some weakness. Nurses are attempting to contact the patient's family. 1445: The patient is going to be evaluated by mental health for depression and not taking her medications. 1500: The patient was signed out to Dr. Ambrocio at the change of shift. Medical Decision Differentials include: Acute coronary syndrome, myocardial infarction, CVA, TIA , anemia, infection, pneumonia, UTI, pyelonephritis, poor nutrition, dehydration , electrolyte disturbance, and hypoglycemia. This is a 62-year-old female who presents to the ED with a chief complaint of strokelike symptoms. The patient initially presented being found on the sidewalk. She was brought in here for evaluation because of weakness. Her exam was very inconsistent and she was faking weakness in her right side and then faking speech difficulties. The patient's symptoms were alternating sides and initially when evaluated, she could not move her arms but then later on she was observed to move arms and actually sat up. Patient had extensive evaluation for her symptoms here including a CBC, complete metabolic panel, cardiac enzymes, thyroid function test and chest x-ray. These were all negative for acute disease. A CT scan of the brain was also negative for acute disease. Urine revealed a UTI. After the patient was advised that her test results were okay and that she could go home, she began to cry and stated that she could not function at home. She began speaking clearly and was moving all 4 extremities. She stated that she was acting this way because she was depressed and did not want to go home as she states that she feels that she cannot function. She states that she has not been taking her psychiatric medications. She does have history of bipolar disorder and mood disorder. The patient was eventually moved to the mental health [facility]. She is going to be evaluated by mental health services. She was ordered IV Rocephin for her UTI and given p.o. Bactrim as well. Patient's initial symptoms were psychomotor related and resolved. I do feel the patient's symptoms are related to psychiatric reasons and she is felt to be medically cleared. She does have a UTI and is currently being treated for this. She will require a 5 day course of Bactrim for this. This was started today. The patient was signed out to Dr. Ambrocio for mental health evaluation. Medication Reconcilliation Current Medication List: was personally reviewed by me Blood Pressure Screening Patient's blood pressure: Elevated blood pressure Blood pressure disposition: Referred to PCP Impression Primary Impression: Depression Additional Impressions: Bipolar disorder Psychosomatic disease UTI (urinary tract infection) Scribe Attestation The scribe's documentation has been prepared under my direction and personally reviewed by me in its entirety. I confirm that the note above accurately reflects all work, treatment, procedures, and medical decision making performed by me. Departure Information Dispostion Still a Patient (Signed out to Dr. Brandt.) Referrals Chuy Clemente D.O. (PCP) Patient Instructions My [facility] Problem Qualifiers
[2017-11-17] MEDS ORDERED: LISI-787 PO (16:54)
[2017-11-17] MEDS ORDERED: VENL75CA PO (16:54)
[2017-11-17] MEDS ORDERED: MELO7.5T5 PO (16:54)
[2017-11-17] MEDS ORDERED: GLC/500 PO (16:54)
[2017-11-17] MEDS ORDERED: FLUT0.15 NAE (16:54)
[2017-11-17] MEDS ORDERED: NURSING VERBAL MED ORDER SCH (17:45)
[2017-11-17 19:05] VITALS: O2SAT 92
[2017-11-17] MEDS ORDERED: hydrOXYzine HCL 25 MG TAB PO PRN (20:00)
[2017-11-17] MEDS ORDERED: MAGNESIUM HYDROXIDE SUSP 30 ML UDC PO PRN (20:00)
[2017-11-17] MEDS ORDERED: BISMUTH SUBSALICYLATE PER ML OMNICELL CHARGE PO PRN (20:00)
[2017-11-17] MEDS ORDERED: ALUMINUM/MAGNESIUM SUSP 30 ML UDC PO PRN (20:00)
[2017-11-17] MEDS ORDERED: SODIUM CHLORIDE 0.65% NA SOLN 45 ML (OCEAN) PRN (20:00)
[2017-11-17 20:08] VITALS: BP 155/104; PULSE 97; TEMP 37.5; Ht 160 cm; Wt 108.0 kg
[2017-11-17] MEDS: ACETAMINOPHEN 325 MG TAB PO PRN (20:39)
[2017-11-17] MEDS: SULFAMETHOXAZOLE/TRIMETHOPRIM DS 800/160MG TAB PO SCH (21:54)
[2017-11-18 07:08] VITALS: BP_SYST 166; BP_SYST 169; BP_DIAS 102; BP_DIAS 109; PULSE 76; TEMP 36.8
[2017-11-18] MEDS: SULFAMETHOXAZOLE/TRIMETHOPRIM DS 800/160MG TAB PO SCH ×2 (08:49→21:30)
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
[2017-11-18] MEDS: METFORMIN HCL 500 MG TAB PO SCH ×2 (10:30→17:38)
[2017-11-18] MEDS: MELOXICAM 7.5 MG TAB PO SCH (10:30)
[2017-11-18] MEDS ORDERED: FLUOXETINE HCL 20 MG CAP PO ONE (10:30)
[2017-11-18] MEDS: FLUTICASONE PROPIONATE NA SPR 16 GM BTL NAE SCH (10:30)
[2017-11-18] MEDS: LISINOPRIL/HCTZ 20/12.5MG TAB PO SCH (10:30)
[2017-11-18 12:17] VITALS: BP 129/84; PULSE 92
[2017-11-18 14:27] VITALS: BP 129/84; PULSE 92; TEMP 36.8
--- NOTE | 2017-11-18 21:21 | EMERGENCY ROOM VISIT NOTE ---
ED Visit Note Pt was signed out to me at the change of shift by Dr Irene, pending MH evaluation. Pt was accepted on 201 to 3 S for further management.
[2017-11-18 23:09] VITALS: BP 107/70; PULSE 94
[2017-11-18] MEDS: hydrOXYzine HCL 25 MG TAB PO PRN (23:13)
[2017-11-19 06:36] VITALS: BP_SYST 154; BP_SYST 171; BP_DIAS 86; BP_DIAS 88; PULSE 80; PULSE 83; TEMP 36.9
[2017-11-19] MEDS: SULFAMETHOXAZOLE/TRIMETHOPRIM DS 800/160MG TAB PO SCH (08:39)
[2017-11-19] MEDS: FLUTICASONE PROPIONATE NA SPR 16 GM BTL NAE SCH (08:39)
[2017-11-19] MEDS: LISINOPRIL/HCTZ 20/12.5MG TAB PO SCH (08:39)
[2017-11-19] MEDS: MELOXICAM 7.5 MG TAB PO SCH (08:39)
[2017-11-19] MEDS: METFORMIN HCL 500 MG TAB PO SCH ×2 (08:39→17:31)
[2017-11-19] MEDS: FLUOXETINE HCL 20 MG CAP PO SCH (08:39)
--- NOTE | 2017-11-19 11:15 | Psych Management Progress Note ---
Psychiatry Miscellaneous Date of Service: Nov 19, 2017. Patient seen, MS assessed. Rates mood as tired. Encouraged cooperation with care and treatment plan as outlined by allied health prescriber. monitor BP. apparently carbipenem resistant enterococcus so will convert to MNPR.
[2017-11-19] MEDS ORDERED: CIPROFLOXACIN 500 MG TAB PO ONE (12:15)
--- NOTE | 2017-11-19 12:15 | Psychiatric Progress Notes ---
Progress Note Date of Service Nov 19, 2017. Interval History Maria M is a 62-year-old / white female who is currently homeless, reports a history of bipolar disorder but gives symptoms consistent with depression and anxiety and has only ever been on unopposed antidepressant treatment, has multiple medical problems and a very complex social history, who presents with worsening mood and suicidal ideation. Chief Complaint "Pretty low. ". Subjective Patient was seen & assessed interval progress reviewed with Treatment Team. The patient says that she remains depressed, describing her mood as "pretty low ". She says that she does not know where she will live after discharge, as she is homeless and without financial resources. Her daughter will be coming to visit this weekend "to talk about it", although the patient says that she doesn't thin she could ever live with her daughter since she has 4 kids. She became homeless last April when she was scammed out of her long-term, lent money to people who didn't pay it back, and could not afford her own rent. She has lived in homeless shelters and most recently has been living in her car. She continues to have suicidal thoughts, feeling hopeless. She continues with urinary frequency, C&S reveals bacteria not sensitive to Bactrim. She rates her mood 3/10 and says that she feels "confused". Answers all orientation questions appropriately. She admits that she slept well last night, but appears tired today, slowed. She denies side effects to meds. She is having "achy" back pain from her RA. Review of Systems Constitutional: + fatigue ENT: No hearing loss, No unusual epistaxis, No nasal symptoms, No sore throat, No tinnitus, No dental problems, No trouble swallowing, No problem reported Respiratory: No cough, No sputum, No wheezing, No shortness of breath, No dyspnea on exertion, No dyspnea at rest, No hemoptysis, No problem reported Cardiovascular: No chest pain, No orthopnea, No PND, No edema, No claudication , No palpitations, No problem reported Abdomen: + problem reported (urinary frequency) Musculoskeletal: + problem reported (achy back) Neurologic: + problem reported (self reports of "confusion") Psychiatric: + depression symptoms (with SI) Integumentary: No rash, No itch, No new/changing skin lesions, No color change , No bleeding, No problem reported Sleep Information Total Hours of Sleep: 7.50 Meal Information Percent of Breakfast Consumed: 100 Percent of Lunch Consumed: 100 Percent of Dinner Consumed: 100 Mental Status Exam During interview pt is: alert and oriented, cooperative Appearance: appropriately dressed, appropriately groomed Eye contact is: good Motor behavior is: steady gait & station, no abnormal motor movements, psychomotor retardation Speech: normal in rate, rhythm & volume Affect: mood congruent, depressed, flat, anxious Mood is: depressed Thought process: goal directed, concrete Thought content: reality based without delusions Suicidal thought are: present, Plan: present, Intent: denied (in the hospital) Homicidal thoughts are: denied Hallucinations: denies auditory, denies visual Cognition: other (all spheres of cognitiion are impaired (15/ on MOCA)) Intelligence estimated to be: below average (patient reports difficulty reading ) Insight: impaired Judgement: impaired Impression Remains severely depressed, and limited as a historian. Daughter will be coming this weekend, from whom we can get some additional history. Will continue Prozac 20 mg. Will switch Bactrim to Cipro after reviewing the sensitivity. Plan (1) Depression 11/18 - Pt poor historian, will need to get collateral information from daughter or friend she's been staying with. - Get records from [place] and [facility] in [place] to clarify diagnosis and past treatments. - Although patient reports a diagnosis of bipolar, she doesn't endorse symptoms c/w anton, and reports she was prescribed venlafaxine unopposed, which would not be consistent with a bipolar diagnosis either. Will treat an unipolar depression for now, and start fluoxetine 20mg, titrate as tolerated, while monitoring for activation/destabilization. Advised patient that her diagnosis is unclear and we need to get additional information, and warned of risk of activation of SSRI. - Q 15 min checks for safety. Participate in groups and programming, work on healthy coping skills and discharge safety plan. - Of note, the patient has 2 preliminary hearings in [facility], one on 2017 another on 12/09/2017. She claims no memory of being arrested, but will need to follow up to resolve these issues. - She will need outpatient services, including psychiatry, therapy, and case management. We will need to clarify what County she will be living in, and where she can receive services with her insurance. 2 - Continue Prozac 20 mg. daily - Daughter to visit this weekend. obtain supplemental information (2) Cognitive dysfunction / - Get collateral from friends/family and OP records. Differential includes depression/anxiety effects on cognition, component of delirium, dementia. Discussed these different possibilities with the patient, and the need for ongoing monitoring. - Scored 15/20 on the MOCA, missing 2 for visuospatial/executive, 1 for naming, 2 for attention, 3 for language, 2 for abstraction, 3 for delayed recall, and 1 for orientation. - Patient has not been driving due to concerns about her cognition, and reinforced that she should not drive until she has been cleared by a physician. -She will need ongoing monitoring and management as an outpatient to determine the underlying cause of her cognitive issues, and should be reassessed once her depression and anxiety are under better control. There is a strong family history of dementia, and I suspect that she is experiencing mild dementia symptoms in addition to her severe mood and anxiety. (3) Anxiety 11/18 -endorses symptoms of generalized anxiety and PTSD, but has a limited historian unable to make a definitive diagnosis. Start with getting records from the [facility] and [facility], and start SSRI as above. Hydroxyzine as needed for sleep and anxiety. She would benefit from outpatient therapy. (4) UTI (urinary tract infection) Complete 5 day course of Septra. / - Not sensitive to Septra. - Switch to Cipro 500 mg. q12 h X 7 days (5) Type 2 diabetes mellitus without complications Continue home dose of metformin and lisinopril. (6) Arthritis Continue home dose of Meloxicam, and f/u with PCP, Dr. Ivana Andersen in [place]. Discharge / Aftercare Planning Primary Care Physician: Name: Shoaib Cruz PA-C, Kurt [place] Date of Appointment: Nov 29, 2017 Time of Appointment: 9:15 a.m. Appointment Notes: [address] [place] [address], [place] [address] Psychiatrist: Name: [facility] Date of Appointment: Nov 26, 2017 Time of Appointment: 10 a.m. Appointment Notes: [address] [place] [address], [place] [id number] Therapist: Name: DEVANTE Date of Appointment: Nov 30, 2017 Time of Appointment: 2:00 p.m. Appointment Notes: Appt with Blaine Sr [address] [address] Operations Clerk: Name: [place] Visit Code E&M Code: 01278 Inventory Assets Strengths: Willing for treatment, supportive friend, has providers recently Needs: Truthfulness in treatment, child welfare social worker assistance with housing, supports, aftercare, criminal charges Risk Factors Assessment : Yes /single/: Yes Higher / Fall in social status: Yes Health problems: Yes Mental Health Diagnoses: Yes Substance use disorders: No Previous attempt: No Family history of suicide: No Previous psychiatric stay: Yes Hopelessness: Yes Smoker: No Protective Factors Assessment : No Responsible for young children: No Employed: No Stable relationships: No Supportive family: No Good rapport with provider: No Data Vital Signs Last 24 Hrs: Date Time Temp Pulse Resp B/P (MAP) Pulse Ox O2 Delivery O2 Flow Rate FiO2 11/19/17 06:36 36.9 80 18 171/88 83 154/86 11/18/17 23:09 94 107/70 11/18/17 14:27 36.8 92 18 129/84 11/18/17 12:17 92 18 129/84 Meds Administered Last 24 Hrs: Meds Administered (Past 24Hrs) Medications (Trade) Dose Ordered Sig/Thi Route Start Time Stop Time Status Last Admin Dose Admin Ceftriaxone Sodium (Rocephin Inj) 1 gm NOW STAT IV 11/17/17 14:48 11/17/17 14:49 DC 11/17/17 15:26 1 GM Trimethoprim/ Sulfamethoxazole (Septra Ds 800/ 160MG Tab) 1 tab Q12 PO 11/17/17 21:00 11/22/17 20:59 11/19/17 08:39 1 TAB Acetaminophen (Tylenol Tab) 650 mg Q4H PRN PO 11/17/17 20:00 12/17/17 19:59 11/17/17 20:39 650 MG Hydroxyzine HCl (Vistaril Tab) 50 mg HSZ PRN PO 11/17/17 20:00 12/17/17 19:59 11/18/17 23:13 50 MG Fluticasone Propionate (Flonase Nasal [place]) 2 sprays DAILY CARLITOS 11/18/17 09:00 12/18/17 08:59 11/19/17 08:39 2 SPRAYS HCTZ/Lisinopril (Prinzide 20-12.5MG Tab) 1 tab DAILY PO 11/18/17 09:00 12/18/17 08:59 11/19/17 08:39 1 TAB Meloxicam (Mobic Tab) 7.5 mg DAILY PO 11/18/17 09:00 12/18/17 08:59 11/19/17 08:39 7.5 MG Metformin HCl (Glucophage Tab) 1,000 mg BIDM PO 11/18/17 09:00 12/18/17 08:59 11/19/17 08:39 1,000 MG Fluoxetine HCl (Prozac Cap) 20 mg QAM PO 11/19/17 09:00 12/19/17 08:59 11/19/17 08:39 20 MG Fluoxetine HCl (Prozac Cap) 20 mg 1030 ONCE PO 11/18/17 10:30 11/18/17 10:31 DC 11/18/17 13:23 20 MG Lab Results Last 24 Hrs: Last 24 Hours Test 11/18/17 12:24 Bedside Glucose 217 mg/dl
[2017-11-19 14:33] VITALS: BP 104/69; PULSE 92
[2017-11-19] MEDS: CIPROFLOXACIN 500 MG TAB PO SCH (21:06)
[2017-11-19 21:58] VITALS: BP 108/74; PULSE 88
[2017-11-20 06:59] VITALS: BP_SYST 130; BP_SYST 152; BP_DIAS 105; BP_DIAS 86; PULSE 86; PULSE 89; TEMP 36.8
[2017-11-20] MEDS: METFORMIN HCL 500 MG TAB PO SCH ×2 (09:12→17:54)
[2017-11-20] MEDS: LISINOPRIL/HCTZ 20/12.5MG TAB PO SCH (09:13)
[2017-11-20] MEDS: MELOXICAM 7.5 MG TAB PO SCH (09:14)
[2017-11-20] MEDS: CIPROFLOXACIN 500 MG TAB PO SCH ×2 (09:15→21:20)
[2017-11-20] MEDS: FLUOXETINE HCL 20 MG CAP PO SCH (09:15)
[2017-11-20] MEDS: FLUTICASONE PROPIONATE NA SPR 16 GM BTL NAE SCH (09:16)
--- NOTE | 2017-11-20 10:17 | Psychiatric Progress Notes ---
Progress Note Date of Service Nov 20, 2017. Interval History Maria M is a 62-year-old / white female who is currently homeless, reports a history of bipolar disorder but gives symptoms consistent with depression and anxiety and has only ever been on unopposed antidepressant treatment, has multiple medical problems and a very complex social history, who presents with worsening mood and suicidal ideation. Chief Complaint "Just really depressed". Subjective Patient was seen & assessed interval progress reviewed with Treatment Team. No outside records yet received. Per staff, pt will need [facility] for contact prec which we can accommodate today. No acute events overnight. Compliant with medications. Denies SE so far on prozac and indicates mood "maybe a little bit better" today. Endorses continued thoughts of being better off and envisions herself walking in front of a truck and does not feel that she would be safe outside of the hospital. Family meeting w/ daughter scheduled for w/e ( I believe tomorrow AM.) Describes thoughts as slow. Oriented to person, place, and situation. Bactrim d/c'd and now on cipro for UTI. Review of Systems sleep a little improved last night. reports good domingo Neurologic: + problem reported (headache) Psychiatric: + depression symptoms Sleep Information Total Hours of Sleep: 5.50 Meal Information Percent of Breakfast Consumed: 100 Percent of Lunch Consumed: 100 Percent of Dinner Consumed: 100 Mental Status Exam During interview pt is: alert and oriented, cooperative Appearance: appropriately dressed, disheveled Eye contact is: good Motor behavior is: steady gait & station, no abnormal motor movements, psychomotor retardation Speech: other (soft, clear) Affect: mood congruent, depressed, blunted Mood is: depressed Thought process: goal directed, concrete Thought content: reality based without delusions Suicidal thought are: present, Plan: present, Intent: denied (in the hospital) Homicidal thoughts are: denied Hallucinations: denies auditory, denies visual Cognition: other (all spheres of cognitiion are impaired (15/30 on MOCA)) Intelligence estimated to be: below average Insight: impaired Judgement: impaired Impression Remains severely depressed, and limited as a historian. Daughter will be coming this weekend, from whom we can get some additional history. Unable to contract for safety outside of hospital. Plan (1) Depression 11/18 - Pt poor historian, will need to get collateral information from daughter or friend she's been staying with. - Get records from [place] and [facility] in [place] to clarify diagnosis and past treatments. - Although patient reports a diagnosis of bipolar, she doesn't endorse symptoms c/w anton, and reports she was prescribed venlafaxine unopposed, which would not be consistent with a bipolar diagnosis either. Will treat an unipolar depression for now, and start fluoxetine 20mg, titrate as tolerated, while monitoring for activation/destabilization. Advised patient that her diagnosis is unclear and we need to get additional information, and warned of risk of activation of SSRI. - Q 15 min checks for safety. Participate in groups and programming, work on healthy coping skills and discharge safety plan. - Of note, the patient has 2 preliminary hearings in [facility], one on 2017 another on 12/09/2017. She claims no memory of being arrested, but will need to follow up to resolve these issues. - She will need outpatient services, including psychiatry, therapy, and case management. We will need to clarify what County she will be living in, and where she can receive services with her insurance. 3/ - Continue Prozac 20 mg. daily - Daughter to visit this weekend. obtain supplemental information / - remains severely depressed and unable to CFS - tolerating prozac. will consider dose escalation tomorrow (2) Cognitive dysfunction 3/ - Get collateral from friends/family and OP records. Differential includes depression/anxiety effects on cognition, component of delirium, dementia. Discussed these different possibilities with the patient, and the need for ongoing monitoring. - Scored 15/20 on the MOCA, missing 2 for visuospatial/executive, 1 for naming, 2 for attention, 3 for language, 2 for abstraction, 3 for delayed recall, and 1 for orientation. - Patient has not been driving due to concerns about her cognition, and reinforced that she should not drive until she has been cleared by a physician. -She will need ongoing monitoring and management as an outpatient to determine the underlying cause of her cognitive issues, and should be reassessed once her depression and anxiety are under better control. There is a strong family history of dementia, and I suspect that she is experiencing mild dementia symptoms in addition to her severe mood and anxiety. (3) Anxiety 3/ -endorses symptoms of generalized anxiety and PTSD, but has a limited historian unable to make a definitive diagnosis. Start with getting records from the [facility] and [facility], and start SSRI as above. Hydroxyzine as needed for sleep and anxiety. She would benefit from outpatient therapy. (4) UTI (urinary tract infection) Complete 5 day course of Septra. 3/2 - Not sensitive to Septra. - Switch to Cipro 500 mg. q12 h X 7 days 3/3 - tolerating cipro. continue 7 day course (5) Type 2 diabetes mellitus without complications Continue home dose of metformin and lisinopril. (6) Arthritis Continue home dose of Meloxicam, and f/u with PCP, Dr. Ivana Andersen in [place]. Discharge / Aftercare Planning Primary Care Physician: Name: Shoaib Cruz PA-C, Kurt [place] Date of Appointment: Nov 29, 2017 Time of Appointment: 9:15 a.m. Appointment Notes: [address] [place] [address], [place] [address] Psychiatrist: Name: [facility] Date of Appointment: Nov 26, 2017 Time of Appointment: 10 a.m. Appointment Notes: [address] [place] [address] Therapist: Name: [facility] Date of Appointment: Nov 30, 2017 Time of Appointment: 2:00 p.m. Appointment Notes: Appt with Blaine Sr - [address] [place] [id number] Butt Trimmer: Name: None Visit Code E&M Code: 80380 Inventory Assets Strengths: Willing for treatment, supportive friend, has providers recently Needs: Truthfulness in treatment, clinical social work therapist assistance with housing, supports, aftercare, criminal charges Risk Factors Assessment : Yes /single/: Yes Higher / Fall in social status: Yes Health problems: Yes Mental Health Diagnoses: Yes Substance use disorders: No Previous attempt: No Family history of suicide: No Previous psychiatric stay: Yes Hopelessness: Yes Smoker: No Protective Factors Assessment : No Responsible for young children: No Employed: No Stable relationships: No Supportive family: No Good rapport with provider: No Data Vital Signs Last 24 Hrs: Date Time Temp Pulse Resp B/P (MAP) Pulse Ox O2 Delivery O2 Flow Rate FiO2 11/20/17 06:59 36.8 89 16 130/86 86 152/105 11/19/17 21:58 88 18 108/74 11/19/17 14:33 92 104/69 Meds Administered Last 24 Hrs: Meds Administered (Past 24Hrs) Medications (Trade) Dose Ordered Sig/Thi Route Start Time Stop Time Status Last Admin Dose Admin Fluoxetine HCl (Prozac Cap) 20 mg QAM PO 11/19/17 09:00 12/19/17 08:59 11/20/17 09:15 20 MG Fluoxetine HCl (Prozac Cap) 20 mg 1030 ONCE PO 11/18/17 10:30 11/18/17 10:31 DC 11/18/17 13:23 20 MG Ciprofloxacin (Cipro Tab) 500 mg BID PO 11/19/17 22:00 11/26/17 08:59 11/20/17 09:15 500 MG Ciprofloxacin (Cipro Tab) 500 mg 1215 ONCE PO 11/19/17 12:15 11/19/17 12:16 DC 11/19/17 12:24 500 MG
[2017-11-20 14:02] VITALS: BP 169/96; PULSE 112
--- NOTE | 2017-11-20 18:02 | Psych Management Progress Note ---
Psychiatry Miscellaneous Date of Service: Nov 20, 2017. This provider was present for and participated in a portion of the family meeting that occurred today with the patient, her daughter, and her son-in-law. We reviewed the patient's history which appears to be more bipolar in nature than previously described. Please see note from social work in regard to discussion during the meeting. Past mood stabilizers include Deaver and Depakote. Will plan to get collateral information from Dr. Clemente, one of the patient's past providers, as this was stated to be the most reliable source for past medication history. History and medication trials were reviewed with Dr. Schulz who will plan to discuss further with the patient tomorrow.
[2017-11-20] MEDS: hydrOXYzine HCL 25 MG TAB PO PRN (21:21)
[2017-11-20 22:15] VITALS: BP 112/70; PULSE 82
[2017-11-21 06:58] VITALS: BP_SYST 131; BP_SYST 135; BP_DIAS 84; PULSE 85; PULSE 86; TEMP 36.6
[2017-11-21] MEDS: LISINOPRIL/HCTZ 20/12.5MG TAB PO SCH (09:05)
[2017-11-21] MEDS: FLUTICASONE PROPIONATE NA SPR 16 GM BTL NAE SCH (09:05)
[2017-11-21] MEDS: CIPROFLOXACIN 500 MG TAB PO SCH ×2 (09:06→21:00)
[2017-11-21] MEDS: METFORMIN HCL 500 MG TAB PO SCH ×2 (09:06→17:52)
[2017-11-21] MEDS: MELOXICAM 7.5 MG TAB PO SCH (09:07)
[2017-11-21] MEDS: FLUOXETINE HCL 20 MG CAP PO SCH (09:07)
--- NOTE | 2017-11-21 10:10 | Psychiatric Progress Notes ---
Progress Note Date of Service Nov 21, 2017. Interval History Maria M is a 62-year-old / white female who is currently homeless, reports a history of bipolar disorder but gives symptoms consistent with depression and anxiety and has only ever been on unopposed antidepressant treatment, has multiple medical problems and a very complex social history, who presents with worsening mood and suicidal ideation. Chief Complaint "I'm still really depressed and tired". Subjective Patient was seen & assessed interval progress reviewed with Treatment Team Nursing. Very pertinent supplemental history was provided by patient's daughter yesterday at family meeting. Please see social work note. I also reviewed with the PA yesterday who joined the family meeting, that the patient sounds to have a 15+ year history of bipolar 1 disorder. When manic she tends to disappear for months at a time and then decompensates into depression. They believe she was last manic in August 2017. She has been treated with multiple mood stabilizers in the past. Vermilion reportedly worked well and was on it for approximately 6 years duration discontinued perhaps 3 years ago, possibly associated with toxicity or physical illness. They believed she had previously taken Depakote but didn't like it because she didn't feel like herself, and had possibly taken Lamictal. She tends to self discontinue her medications when manic. Staff report no acute events overnight. Daughter and patient are in agreement to pursue personal-care disposition if possible. On interview this morning the patient is drowsy appearing and reports feeling tired and still depressed but "a little less hopeless." She acknowledges now a history of anton in addition to depression and reports recollection of positive effect from lithium and is willing to retry. We discussed the risks and benefits of the medication and need for blood draws and she verbalized understanding and consent. Hopefully if she is disposition and to a more stable living situation, regular compliance can be ensured. Review of Systems Constitutional: + fatigue Psychiatric: + depression symptoms Sleep Information Total Hours of Sleep: 7.75 Meal Information Percent of Breakfast Consumed: 100 Percent of Lunch Consumed: 90 Percent of Dinner Consumed: 100 Mental Status Exam During interview pt is: alert and oriented, cooperative Appearance: appropriately dressed, disheveled Eye contact is: fair Motor behavior is: steady gait & station, no abnormal motor movements, psychomotor retardation Speech: other (soft, clear) Affect: mood congruent, depressed, blunted Mood is: depressed Thought process: goal directed, concrete Thought content: reality based without delusions Suicidal thought are: present, Plan: present, Intent: denied Homicidal thoughts are: denied Hallucinations: denies auditory, denies visual Cognition: other (memory impaired in all spheres) Intelligence estimated to be: below average Insight: impaired Judgement: impaired Impression Remains severely depressed, and limited as a historian. Daughter has provided h /o long standing BPAD 1 illness which will change tx plan. Unable to contract for safety outside of hospital. Plan (1) Depression 11/18 - Pt poor historian, will need to get collateral information from daughter or friend she's been staying with. - Get records from [place] and [facility] in [place] to clarify diagnosis and past treatments. - Although patient reports a diagnosis of bipolar, she doesn't endorse symptoms c/w anton, and reports she was prescribed venlafaxine unopposed, which would not be consistent with a bipolar diagnosis either. Will treat an unipolar depression for now, and start fluoxetine 20mg, titrate as tolerated, while monitoring for activation/destabilization. Advised patient that her diagnosis is unclear and we need to get additional information, and warned of risk of activation of SSRI. - Q 15 min checks for safety. Participate in groups and programming, work on healthy coping skills and discharge safety plan. - Of note, the patient has 2 preliminary hearings in [facility], one on 2017 another on 12/09/2017. She claims no memory of being arrested, but will need to follow up to resolve these issues. - She will need outpatient services, including psychiatry, therapy, and case management. We will need to clarify what County she will be living in, and where she can receive services with her insurance. 11/19 - Continue Prozac 20 mg. daily - Daughter to visit this weekend. obtain supplemental information 11/20 - remains severely depressed and unable to CFS - tolerating prozac. will consider dose escalation tomorrow 11/21 - based on new information, will change primary mood d/o dx to BPAD I, MRE depressed - will start lithium ER 450mg po qhs. common risks and benefits reviewed and pt willing to resume mood stabilizer tx. EGFR and thyroid reviewed and ok. starting on low dose secondary to h/o possible toxicity and likely h/o med noncompliance. hopefully dispo will be favorable for longitudinal med oversight and allow for regular monitoring. - as she remains very depressed, will continue prozac unchanged for now but will defer any further titration. - will need Li level in 5 days (2) Cognitive dysfunction / - Get collateral from friends/family and OP records. Differential includes depression/anxiety effects on cognition, component of delirium, dementia. Discussed these different possibilities with the patient, and the need for ongoing monitoring. - Scored 15/20 on the MOCA, missing 2 for visuospatial/executive, 1 for naming, 2 for attention, 3 for language, 2 for abstraction, 3 for delayed recall, and 1 for orientation. - Patient has not been driving due to concerns about her cognition, and reinforced that she should not drive until she has been cleared by a physician. -She will need ongoing monitoring and management as an outpatient to determine the underlying cause of her cognitive issues, and should be reassessed once her depression and anxiety are under better control. There is a strong family history of dementia, and I suspect that she is experiencing mild dementia symptoms in addition to her severe mood and anxiety. (3) Anxiety / -endorses symptoms of generalized anxiety and PTSD, but has a limited historian unable to make a definitive diagnosis. Start with getting records from the [facility] and [facility], and start SSRI as above. Hydroxyzine as needed for sleep and anxiety. She would benefit from outpatient therapy. (4) UTI (urinary tract infection) Complete 5 day course of Septra. 3/2 - Not sensitive to Septra. - Switch to Cipro 500 mg. q12 h X 7 days 3/ - tolerating cipro. continue 7 day course (5) Type 2 diabetes mellitus without complications Continue home dose of metformin and lisinopril. (6) Arthritis Continue home dose of Meloxicam, and f/u with PCP, Dr. Ivana Andersen in [place]. Discharge / Aftercare Planning Primary Care Physician: Name: Shoaib Cruz PA-C, [facility] [place] Date of Appointment: Nov 29, 2017 Time of Appointment: 9:15 a.m. Appointment Notes: [address] [place] [address], [place] [address] Psychiatrist: Name: [facility] Date of Appointment: Nov 26, 2017 Time of Appointment: 10 a.m. Appointment Notes: [address] [facility] [employer] [place] [address] Therapist: Name: [facility] Date of Appointment: Nov 30, 2017 Time of Appointment: 2:00 p.m. Appointment Notes: Appt with Blaine Sr - [address] [facility] [employer] [place] [address] Horticultural Worker: Name: None Visit Code E&M Code: 76360 Inventory Assets Strengths: Willing for treatment, supportive friend, has providers recently Needs: Truthfulness in treatment, social service technician assistance with housing, supports, aftercare, criminal charges Risk Factors Assessment : Yes /single/: Yes Higher / Fall in social status: Yes Health problems: Yes Mental Health Diagnoses: Yes Substance use disorders: No Previous attempt: No Family history of suicide: No Previous psychiatric stay: Yes Hopelessness: Yes Smoker: No Protective Factors Assessment : No Responsible for young children: No Employed: No Stable relationships: No Supportive family: No Good rapport with provider: No Data Vital Signs Last 24 Hrs: Date Time Temp Pulse Resp B/P (MAP) Pulse Ox O2 Delivery O2 Flow Rate FiO2 11/21/17 06:58 36.6 85 18 135/84 86 131/84 11/20/17 22:15 82 16 112/70 11/20/17 14:02 112 169/96 Meds Administered Last 24 Hrs: Meds Administered (Past 24Hrs) Medications (Trade) Dose Ordered Sig/Thi Route Start Time Stop Time Status Last Admin Dose Admin Ciprofloxacin (Cipro Tab) 500 mg BID PO 11/19/17 22:00 11/26/17 08:59 11/21/17 09:06 500 MG Ciprofloxacin (Cipro Tab) 500 mg 1215 ONCE PO 11/19/17 12:15 11/19/17 12:16 DC 11/19/17 12:24 500 MG
[2017-11-21 14:13] VITALS: BP 134/83; PULSE 102
[2017-11-21] MEDS: LITHIUM CARBONATE 450 MG TABCR PO SCH (21:00)
[2017-11-21 22:01] VITALS: BP 125/74; PULSE 87
[2017-11-22 06:57] VITALS: BP_SYST 123; BP_SYST 145; BP_DIAS 76; BP_DIAS 82; PULSE 85; PULSE 87; TEMP 36.8
[2017-11-22] MEDS: FLUTICASONE PROPIONATE NA SPR 16 GM BTL NAE SCH ×2 (09:00→09:42)
[2017-11-22] MEDS: CIPROFLOXACIN 500 MG TAB PO SCH ×2 (09:42→21:28)
[2017-11-22] MEDS: MELOXICAM 7.5 MG TAB PO SCH (09:43)
[2017-11-22] MEDS: LISINOPRIL/HCTZ 20/12.5MG TAB PO SCH (09:43)
[2017-11-22] MEDS: FLUOXETINE HCL 20 MG CAP PO SCH (09:43)
[2017-11-22] MEDS: METFORMIN HCL 500 MG TAB PO SCH ×2 (09:43→17:50)
[2017-11-22] MEDS: ONDANSETRON 8 MG TAB PO PRN (10:46)
--- NOTE | 2017-11-22 13:44 | Psychiatric Progress Notes ---
Progress Note Date of Service Nov 22, 2017. Interval History Maria M is a 62-year-old / white female who is currently homeless, reports a history of bipolar disorder but gives symptoms consistent with depression and anxiety and has only ever been on unopposed antidepressant treatment, has multiple medical problems and a very complex social history, who presents with worsening mood and suicidal ideation. Chief Complaint "I've just been sick to my stomach today". Subjective Patient was seen & assessed interval progress reviewed with Treatment Team. Staff reports the patient had a meeting with her daughter over the weekend which suggested a more significant bipolar history than was originally reported. Pt had been started on Baldwyn last evening, which she has tolerated well in the past. Pt remains on MNPR and contact precautions due to a UTI with CRE. Pt was seen today to assess progress since admission. Pt states she has not been feeling well this morning and reports ongoing nausea. Zofran was ordered for the patient earlier in the morning for these complaints which she states was helpful. Pt states the nausea started over night and she feels "achy " and reports stomach cramps as well. She is concerned that this is due to the Baldwyn, but states she has tolerated this medication very well in the past. Pt feels as though her mood is stable despite current physical complaints. She denies ongoing SI. Pt denies other needs or concerns today. Review of Systems Psych: denies symptoms other than stated above Constitutional: denied Cardiovascular: denied GI: reports nausea and stomach cramps Neurologic: denied Musculoskeletal: reports muscle aches Remainder of 10 body systems also reviewed and denied other than noted above. Sleep Information Total Hours of Sleep: 8.50 Meal Information Percent of Breakfast Consumed: 0 Percent of Lunch Consumed: 95 Percent of Dinner Consumed: 100 Mental Status Exam During interview pt is: alert and oriented, cooperative Appearance: appropriately dressed, appropriately groomed, other (appearance congruent to reports of not feeling well) Eye contact is: fair Motor behavior is: steady gait & station, no abnormal motor movements, psychomotor retardation Speech: other (soft, clear, minimal today) Affect: mood congruent, depressed, blunted Mood is: depressed, other ("getting better") Thought process: goal directed, concrete Thought content: reality based without delusions Suicidal thought are: denied (but previously unable to contract for safety outside of the hospital), Plan: present, Intent: denied Homicidal thoughts are: denied Hallucinations: denies auditory, denies visual Cognition: other (mild impairment likely in all spheres) Intelligence estimated to be: below average Insight: impaired Judgement: impaired Impression Pt continues to appear depressed; however, is currently reporting nausea which also explains her current affect. Pt states she has tolerated Baldwyn well in the past, but cannot rule out Baldwyn as the cause of her current nausea. Will continue to follow to better assess etiology of symptoms. Pt reports improvement in mood, but reports hopelessness in the context of "being unable to take care of myself". We discussed again the plan for placement in a personal longterm, which she still feels will be helpful. Pt requires ongoing inpatient mental health treatment as her medications are being adjusted, and she is still not able to contract for safety outside of the hospital. Pt remains at high risk of self-harm if discharged prematurely. Plan (1) Depression 11/18 - Pt poor historian, will need to get collateral information from daughter or friend she's been staying with. - Get records from [place] and [facility] in [place] to clarify diagnosis and past treatments. - Although patient reports a diagnosis of bipolar, she doesn't endorse symptoms c/w anton, and reports she was prescribed venlafaxine unopposed, which would not be consistent with a bipolar diagnosis either. Will treat an unipolar depression for now, and start fluoxetine 20mg, titrate as tolerated, while monitoring for activation/destabilization. Advised patient that her diagnosis is unclear and we need to get additional information, and warned of risk of activation of SSRI. - Q 15 min checks for safety. Participate in groups and programming, work on healthy coping skills and discharge safety plan. - Of note, the patient has 2 preliminary hearings in [facility], one on 2017 another on 12/09/2017. She claims no memory of being arrested, but will need to follow up to resolve these issues. - She will need outpatient services, including psychiatry, therapy, and case management. We will need to clarify what County she will be living in, and where she can receive services with her insurance. 11/19 - Continue Prozac 20 mg. daily - Daughter to visit this weekend. obtain supplemental information 11/20 - remains severely depressed and unable to CFS - tolerating prozac. will consider dose escalation tomorrow 11/21 - based on new information, will change primary mood d/o dx to BPAD I, MRE depressed - will start lithium ER 450mg po qhs. common risks and benefits reviewed and pt willing to resume mood stabilizer tx. EGFR and thyroid reviewed and ok. starting on low dose secondary to h/o possible toxicity and likely h/o med noncompliance. hopefully dispo will be favorable for longitudinal med oversight and allow for regular monitoring. - as she remains very depressed, will continue prozac unchanged for now but will defer any further titration. - will need Li level in 5 days 3/5 - Continue medications as above. Continue to evaluate nausea. Baldwyn could be culprit, but I am hesitant to discontinue after one evening as she has tolerated Baldwyn well in the past. Pt denies headache, tremor, dizziness, hot/ cold flashes, vision changes, or other abnormalities to suggest toxicity, especially considering dose of 450mg. She denies diarrhea, vomiting, or other circumstances to reflect acute changes in lithium level. - Continue Prozac as above to address depressive symptoms. (2) Cognitive dysfunction 11/18 - Get collateral from friends/family and OP records. Differential includes depression/anxiety effects on cognition, component of delirium, dementia. Discussed these different possibilities with the patient, and the need for ongoing monitoring. - Scored 15/20 on the MOCA, missing 2 for visuospatial/executive, 1 for naming, 2 for attention, 3 for language, 2 for abstraction, 3 for delayed recall, and 1 for orientation. - Patient has not been driving due to concerns about her cognition, and reinforced that she should not drive until she has been cleared by a physician. -She will need ongoing monitoring and management as an outpatient to determine the underlying cause of her cognitive issues, and should be reassessed once her depression and anxiety are under better control. There is a strong family history of dementia, and I suspect that she is experiencing mild dementia symptoms in addition to her severe mood and anxiety. (3) Anxiety / -endorses symptoms of generalized anxiety and PTSD, but has a limited historian unable to make a definitive diagnosis. Start with getting records from the [facility] and [facility], and start SSRI as above. Hydroxyzine as needed for sleep and anxiety. She would benefit from outpatient therapy. (4) UTI (urinary tract infection) Complete 5 day course of Septra. 3/2 - Not sensitive to Septra. - Switch to Cipro 500 mg. q12 h X 7 days 3/3 - tolerating cipro. continue 7 day course (5) Type 2 diabetes mellitus without complications Continue home dose of metformin and lisinopril. (6) Arthritis Continue home dose of Meloxicam, and f/u with PCP, Dr. Ivana Andersen in [place]. Discharge / Aftercare Planning Primary Care Physician: Name: Shoaib Cruz PA-C, [facility] [place] Date of Appointment: Nov 29, 2017 Time of Appointment: 9:15 a.m. Appointment Notes: [address] [place] [address], [place] [address] Psychiatrist: Name: [facility] Date of Appointment: Nov 26, 2017 Time of Appointment: 10 a.m. Appointment Notes: [address] [facility] [place] [address] Therapist: Name: [facility] Date of Appointment: Nov 30, 2017 Time of Appointment: 2:00 p.m. Appointment Notes: Appt with Blaine Sr - [address] [place] [address] [place] [address] Marketing Underwriter: Name: None Visit Code E&M Code: 45077 Inventory Assets Strengths: Willing for treatment, supportive friend, has providers recently Needs: Truthfulness in treatment, secondary social studies teacher assistance with housing, supports, aftercare, criminal charges Risk Factors Assessment : Yes /single/: Yes Higher / Fall in social status: Yes Health problems: Yes Mental Health Diagnoses: Yes Substance use disorders: No Previous attempt: No Family history of suicide: No Previous psychiatric stay: Yes Hopelessness: Yes Smoker: No Protective Factors Assessment : No Responsible for young children: No Employed: No Stable relationships: No Supportive family: No Good rapport with provider: No Data Vital Signs Last 24 Hrs: Date Time Temp Pulse Resp B/P (MAP) Pulse Ox O2 Delivery O2 Flow Rate FiO2 11/22/17 06:57 36.8 85 16 123/76 87 145/82 11/21/17 22:01 87 18 125/74 11/21/17 14:13 102 134/83 Meds Administered Last 24 Hrs: Meds Administered (Past 24Hrs) Medications (Trade) Dose Ordered Sig/Thi Route Start Time Stop Time Status Last Admin Dose Admin Baldwyn Carbonate (Eskalith Cr Tab) 450 mg HS PO 11/21/17 22:00 12/21/17 21:59 11/21/17 21:00 450 MG Ondansetron HCl (Zofran Tab) 8 mg Q8H PRN PO 11/22/17 10:00 12/22/17 09:59 11/22/17 10:46 8 MG
[2017-11-22 14:06] VITALS: BP 124/83; PULSE 80
[2017-11-22] MEDS: hydrOXYzine HCL 25 MG TAB PO PRN (21:28)
[2017-11-22] MEDS: LITHIUM CARBONATE 450 MG TABCR PO SCH (21:28)
[2017-11-22 22:30] VITALS: BP 126/84; PULSE 76
[2017-11-23 06:54] VITALS: BP_SYST 118; BP_SYST 126; BP_DIAS 76; BP_DIAS 84; PULSE 91; PULSE 94; TEMP 36.9
[2017-11-23] MEDS: FLUTICASONE PROPIONATE NA SPR 16 GM BTL NAE SCH (08:57)
[2017-11-23] MEDS: MELOXICAM 7.5 MG TAB PO SCH (08:58)
[2017-11-23] MEDS: METFORMIN HCL 500 MG TAB PO SCH ×2 (08:58→17:24)
[2017-11-23] MEDS: FLUOXETINE HCL 20 MG CAP PO SCH (08:58)
[2017-11-23] MEDS: LISINOPRIL/HCTZ 20/12.5MG TAB PO SCH (08:58)
[2017-11-23] MEDS: CIPROFLOXACIN 500 MG TAB PO SCH ×2 (09:02→21:05)
[2017-11-23 14:34] VITALS: BP 124/69; PULSE 94
--- NOTE | 2017-11-23 14:42 | Psychiatric Progress Notes ---
Progress Note Date of Service Nov 23, 2017. Interval History Maria M is a 62-year-old / white female who is currently homeless, reports a history of bipolar disorder but gives symptoms consistent with depression and anxiety and has only ever been on unopposed antidepressant treatment, has multiple medical problems and a very complex social history, who presents with worsening mood and suicidal ideation. Chief Complaint "I'm depressed". Subjective Patient was seen & assessed interval progress reviewed with Treatment Team. Saw the patient individually in order to assess her current mental status, assess her response to treatment, provide support and encouragement, provide medication teaching, and adjust her treatment regimen as indicated, and address any issues or concerns that may arise. The patient tells me that she remains depressed, but has been less depressed in the last couple days. She adds, "at least I am getting up, getting dressed and moving. Before, was just laying in bed and I could not do anything." The patient tells me that she has frequent episodes of anton, as well as frequent episodes of depression. Typically the episodes last anywhere from 2 weeks to 6 weeks. During manic episodes, she has decreased sleep, decreased desire for sleep, notes that she can sleep "maybe 2 hours" and awaken "ready to go." She becomes extremely active, engages in impulsive behavior such as impulsive spending, and ends up "getting [herself] in trouble" because of poor judgment. Her depressive episodes are characterized by depressed mood, apathy, anhedonia, low energy levels, hypersomnolence, irritable mood, psychosocial withdrawal, crying spells, difficulty concentrating, and poor motivation. Patient tells me that she is not currently suicidal, but was admitted because she was not caring for her physical needs. Patient also tells me that she has been nauseated since starting her medications. She attributes her nausea to Eskalith, but is also taking fluoxetine. Today, among other things, the signs and symptoms of lithium toxicity. I also discussed various treatment options, which include changing her form of lithium to 1 that may be better tolerated without associated nausea. I also discussed increasing her dose of fluoxetine to 30 mg daily. Patient acknowledges that she had stopped taking her medicine approximately 3 weeks prior to admission. She the medicine she was taking included venlafaxine, but she has that her depression began before she stopped taking venlafaxine, but got worse when she had stopped taking it. Review of Systems Constitutional: No fever, No chills, No sweats, No weight loss, No weakness, No fatigue, No problem reported ENT: No hearing loss, No unusual epistaxis, No nasal symptoms, No sore throat, No tinnitus, No dental problems, No trouble swallowing, No problem reported Respiratory: No cough, No sputum, No wheezing, No shortness of breath, No dyspnea on exertion, No dyspnea at rest, No hemoptysis, No problem reported Cardiovascular: + problem reported (Patient has history of hypertension, currently treated.) Abdomen: + nausea, + problem reported (Patient has a history of hyperlipidemia. She also is currently being treated for a urinary tract infection.) Musculoskeletal: + joint pain (Patient reports that she has rheumatoid arthritis that affects her neck, shoulders, back, and knees, primarily.) Neurologic: No memory loss, No paralysis, No weakness, No numbness/tingling, No vertigo, No balance problems, No problem reported Integumentary: No rash, No itch, No new/changing skin lesions, No color change , No bleeding, No problem reported Sleep Information Total Hours of Sleep: 6.50 Meal Information Percent of Breakfast Consumed: 100 Percent of Lunch Consumed: 90 Percent of Dinner Consumed: 100 Mental Status Exam During interview pt is: alert and oriented, cooperative Appearance: appropriately dressed, appropriately groomed, other (appearance congruent to reports of not feeling well) Eye contact is: fair Motor behavior is: steady gait & station, no abnormal motor movements (Patient was examined for mental tremors, and has none.), psychomotor retardation Speech: other (soft, clear, minimal today. However, she responds to questions with full answers.) Affect: mood congruent, depressed, blunted Mood is: depressed, other Thought process: goal directed, concrete Thought content: reality based without delusions Suicidal thought are: denied (but previously unable to contract for safety outside of the hospital), Plan: present, Intent: denied Homicidal thoughts are: denied Hallucinations: denies auditory, denies visual Cognition: other (mild impairment likely in all spheres) Intelligence estimated to be: below average Insight: fair Judgement: fair Impression The patient continues to report that she has been feeling nauseated. She associates her nausea with Eskalith, but is also taking fluoxetine which also may be causing nausea as a side effect. I offered the patient reassurance in this regard. She has no other symptoms that might suggest a viral syndrome, such as diarrhea, chills or fever. Patient notes that she is taking lithium in the past without side effects, but is also been able to tolerate antidepressant medications without significant side effects. She does report that she has improved in the sense that she is more motivated to be active and comfortable, get out of bed and get dressed. She is spending time in the milieu, and interacting with peers to some extent. She is also participating in therapy. Today, the patient does not endorse suicidal thoughts, but has indicated that she would find it stressful to return to the home of her friends and [place], and is hoping to secure an assisted living arrangement, both of that she has regular contact as well as support. Patient states, "I have been having trouble with my memory, and I take my medicine and other things." Plan (1) Depression 11/18 - Pt poor historian, will need to get collateral information from daughter or friend she's been staying with. - Get records from [facility] and [facility] in [place] to clarify diagnosis and past treatments. - Although patient reports a diagnosis of bipolar, she doesn't endorse symptoms c/w anton, and reports she was prescribed venlafaxine unopposed, which would not be consistent with a bipolar diagnosis either. Will treat an unipolar depression for now, and start fluoxetine 20mg, titrate as tolerated, while monitoring for activation/destabilization. Advised patient that her diagnosis is unclear and we need to get additional information, and warned of risk of activation of SSRI. - Q 15 min checks for safety. Participate in groups and programming, work on healthy coping skills and discharge safety plan. - Of note, the patient has 2 preliminary hearings in [facility], one on 2017 another on 12/09/2017. She claims no memory of being arrested, but will need to follow up to resolve these issues. - She will need outpatient services, including psychiatry, therapy, and case management. We will need to clarify what [place] she will be living in, and where she can receive services with her insurance. 11/19 - Continue Prozac 20 mg. daily - Daughter to visit this weekend. obtain supplemental information 11/20 - remains severely depressed and unable to CFS - tolerating prozac. will consider dose escalation tomorrow 11/21 - based on new information, will change primary mood d/o dx to BPAD I, MRE depressed - will start lithium ER 450mg po qhs. common risks and benefits reviewed and pt willing to resume mood stabilizer tx. EGFR and thyroid reviewed and ok. starting on low dose secondary to h/o possible toxicity and likely h/o med noncompliance. hopefully dispo will be favorable for longitudinal med oversight and allow for regular monitoring. - as she remains very depressed, will continue prozac unchanged for now but will defer any further titration. - will need Li level in 5 days 11/22 - Continue medications as above. Continue to evaluate nausea. Gloster could be culprit, but I am hesitant to discontinue after one evening as she has tolerated Gloster well in the past. Pt denies headache, tremor, dizziness, hot/ cold flashes, vision changes, or other abnormalities to suggest toxicity, especially considering dose of 450mg. She denies diarrhea, vomiting, or other circumstances to reflect acute changes in lithium level. - Continue Prozac as above to address depressive symptoms. 11/23 -the patient remains depressed in the context of her bipolar disorder. Today, I will increase her dose of Prozac from 20 mg daily to 30 mg daily. I advised the patient that the source of her nausea may actually be Prozac, rather than Eskalith, and I am encouraging to wait in anticipation of the resolution of the nausea. I will change her dose form of lithium from Eskalith 450 mg at bedtime to. Lithobid 300 mg twice daily. We will also obtain a lithium level in the morning. (2) Cognitive dysfunction 11/18 - Get collateral from friends/family and OP records. Differential includes depression/anxiety effects on cognition, component of delirium, dementia. Discussed these different possibilities with the patient, and the need for ongoing monitoring. - Scored 15/20 on the MOCA, missing 2 for visuospatial/executive, 1 for naming, 2 for attention, 3 for language, 2 for abstraction, 3 for delayed recall, and 1 for orientation. - Patient has not been driving due to concerns about her cognition, and reinforced that she should not drive until she has been cleared by a physician. -She will need ongoing monitoring and management as an outpatient to determine the underlying cause of her cognitive issues, and should be reassessed once her depression and anxiety are under better control. There is a strong family history of dementia, and I suspect that she is experiencing mild dementia symptoms in addition to her severe mood and anxiety. 11/23 -Patient has some difficulty recalling details, such as her previous medications , but seems to have a fairly reasonable command of her own history. It is not clear to me if she may be in part having symptoms of a "pseudodementia" associated with her depression, although the patient says that even when she is in normal mood she is having a lot of trouble remembering things like doctor's appointments, scheduled activities. (3) Anxiety 11/18 -endorses symptoms of generalized anxiety and PTSD, but has a limited historian unable to make a definitive diagnosis. Start with getting records from the [facility] and [facility], and start SSRI as above. Hydroxyzine as needed for sleep and anxiety. She would benefit from outpatient therapy. 11/23 -the patient reports that she has been less anxious recently, and attributes this possibly to her medications. (4) UTI (urinary tract infection) Complete 5 day course of Septra. 11/19 - Not sensitive to Septra. - Switch to Cipro 500 mg. q12 h X 7 days 11/20 - tolerating cipro. continue 7 day course (5) Type 2 diabetes mellitus without complications Continue home dose of metformin and lisinopril. (6) Arthritis Continue home dose of Meloxicam, and f/u with PCP, Dr. Ivana Andersen in [place]. Discharge / Aftercare Planning Primary Care Physician: Name: Shoaib Cruz PA-C, [facility] Date of Appointment: Nov 29, 2017 Time of Appointment: 9:15 a.m. Appointment Notes: [address] [facility], [place] [address] Psychiatrist: Name: [facility] Date of Appointment: Nov 26, 2017 Time of Appointment: 10 a.m. Appointment Notes: [address] [facility] [place] [id number] Therapist: Name: [facility] Date of Appointment: Nov 30, 2017 Time of Appointment: 2:00 p.m. Appointment Notes: App[place] [facility] [place] [facility] [place] [id number] Manager Site: Name: None Visit Code E&M Code: 25068 Inventory Assets Strengths: Willing for treatment, supportive friend, has providers recently Needs: Truthfulness in treatment, hospital social worker assistance with housing, supports, aftercare, criminal charges Risk Factors Assessment : Yes /single/: Yes Higher / Fall in social status: Yes Health problems: Yes Mental Health Diagnoses: Yes Substance use disorders: No Previous attempt: No Family history of suicide: No Previous psychiatric stay: Yes Hopelessness: Yes Smoker: No Protective Factors Assessment : No Responsible for young children: No Employed: No Stable relationships: No Supportive family: No Good rapport with provider: No Data Vital Signs Last 24 Hrs: Date Time Temp Pulse Resp B/P (MAP) Pulse Ox O2 Delivery O2 Flow Rate FiO2 11/23/17 06:54 36.9 91 16 118/76 94 126/84 11/22/17 22:30 76 18 126/84 Meds Administered Last 24 Hrs: Meds Administered (Past 24Hrs) Medications (Trade) Dose Ordered Sig/Thi Route Start Time Stop Time Status Last Admin Dose Admin Gloster Carbonate (Eskalith Cr Tab) 450 mg HS PO 11/21/17 22:00 12/21/17 21:59 11/22/17 21:28 450 MG Ondansetron HCl (Zofran Tab) 8 mg Q8H PRN PO 11/22/17 10:00 12/22/17 09:59 11/22/17 10:46 8 MG
[2017-11-23] MEDS: LITHIUM CARBONATE SR 300 MG TAB (LITHOBID) PO SCH (21:06)
[2017-11-23 22:01] VITALS: BP 112/72; PULSE 85
[2017-11-23] MEDS: hydrOXYzine HCL 25 MG TAB PO PRN (22:04)
[2017-11-24 06:50] VITALS: BP_SYST 120; BP_SYST 128; BP_DIAS 78; BP_DIAS 84; PULSE 74; PULSE 83; TEMP 36.9
[2017-11-24] MEDS: CIPROFLOXACIN 500 MG TAB PO SCH ×2 (08:39→21:02)
[2017-11-24] MEDS: MELOXICAM 7.5 MG TAB PO SCH (08:40)
[2017-11-24] MEDS: METFORMIN HCL 500 MG TAB PO SCH ×2 (08:40→17:16)
[2017-11-24] MEDS: FLUOXETINE HCL 10 MG CAP PO SCH (08:41)
[2017-11-24] MEDS: LISINOPRIL/HCTZ 20/12.5MG TAB PO SCH (08:42)
[2017-11-24] MEDS: FLUTICASONE PROPIONATE NA SPR 16 GM BTL NAE SCH (08:43)
[2017-11-24] MEDS: LITHIUM CARBONATE SR 300 MG TAB (LITHOBID) PO SCH ×2 (08:45→21:03)
[2017-11-24] MEDS ORDERED: CHLORPROMAZINE HCL INJ 25 MG/ML 2 ML AMP IM ONE (09:00)
[2017-11-24] MEDS: ONDANSETRON 8 MG TAB PO PRN (09:48)
--- NOTE | 2017-11-24 14:04 | Psychiatric Progress Notes ---
Progress Note Date of Service Nov 24, 2017. Interval History Maria M is a 62-year-old / white female who is currently homeless, reports a history of bipolar disorder but gives symptoms consistent with depression and anxiety and has only ever been on unopposed antidepressant treatment, has multiple medical problems and a very complex social history, who presents with worsening mood and suicidal ideation. Chief Complaint "I feel nauseous, but it's better". Subjective Patient was seen & assessed interval progress reviewed with Treatment Team. I met individually with the patient in order to assess her current condition, reassess her mental status, assess her response to treatment, make any necessary adjustments in her treatment regimen, offer support and encouragement , and address issues that may arise. We had hoped that changing the patient's dose form of lithium from Eskalith to Lithobid might help reduce her nausea, but the patient continues to experience significant nausea, and this morning found that she had trouble getting out of bed because of feelings of arising would cause her to vomit. She responded to a dose of Zofran, and was able to get up, dressed, and has been participating in the milieu. She tells me that apart from her persistent nausea, her mood has been "better." She denies discussed the possible etiologies of her nausea, and she indicated that she became aware of the nausea around the time she began taking Cipro. I explained that the source of the nausea could include lithium, fluphenazine, and/or Cipro. I am also encouraging her to ask for her Zofran regularly, and I have offered the patient an intramuscular injection of chlorpromazine 25 mg for severe nausea. Today, the patient tells me that she has been working on her "safety plan," and reports that she has been free of suicidal thoughts. She describes long-term goals, including finding an apartment and staying in treatment. Review of Systems Constitutional: No fever, No chills, No sweats, No weight loss, No weakness, No fatigue, No problem reported ENT: No hearing loss, No unusual epistaxis, No nasal symptoms, No sore throat, No tinnitus, No dental problems, No trouble swallowing, No problem reported Respiratory: No cough, No sputum, No wheezing, No shortness of breath, No dyspnea on exertion, No dyspnea at rest, No hemoptysis, No problem reported Cardiovascular: No chest pain, No orthopnea, No PND, No edema, No claudication , No palpitations, No problem reported Abdomen: + nausea, No diarrhea, No constipation Musculoskeletal: + joint pain, + muscle pain Neurologic: No memory loss, No paralysis, No weakness, No numbness/tingling, No vertigo, No balance problems, No problem reported Psychiatric: + depression symptoms (Improved.), + anxiety Integumentary: No rash, No itch, No new/changing skin lesions, No color change , No bleeding, No problem reported Sleep Information Total Hours of Sleep: 7.75 Meal Information Percent of Breakfast Consumed: 0 Percent of Lunch Consumed: 80 Percent of Dinner Consumed: 95 Mental Status Exam During interview pt is: alert and oriented, cooperative Appearance: appropriately dressed, appropriately groomed, other (appearance congruent to reports of not feeling well) Eye contact is: fair Motor behavior is: steady gait & station, no abnormal motor movements (Patient was examined for mental tremors, and has none.), psychomotor retardation Speech: other (soft, clear, minimal today. However, she responds to questions with full answers.) Affect: mood congruent, depressed (, However she smiles appropriately several times during the encounter.) Mood is: depressed (But better.), other Thought process: goal directed Thought content: reality based without delusions Suicidal thought are: denied (The patient tells me that she has been working on her safety plan.), Plan: present, Intent: denied Homicidal thoughts are: denied Hallucinations: denies auditory, denies visual Cognition: other (mild impairment likely in all spheres) Intelligence estimated to be: below average Insight: fair Judgement: fair Impression The patient continues to report that she has been feeling periodically. This morning she developed worsening nausea after taking her morning medications. In retrospect, the patient now suspects that the medication may be causing the nausea is her antibiotic, Cipro. The nausea does respond favorably to Zofran. We discussed the possibility of holding her other medications, but the patient says that she wants finish her course of Cipro with the hope that her depression will continue to improve. Her lithium level this morning was 0.5. It is noted that the patient is taking hydrochlorothiazide for blood pressure, and so we will not further increase her dose of Lithobid at this point. As previously noted, I have reviewed the signs and symptoms of lithium toxicity we will continue to monitor her progress. Overall, despite her nausea, the patient 's mood appears to be improving, and within not experiencing severe nausea she is able to interact and participate in the milieu. Plan (1) Depression 11/18 - Pt poor historian, will need to get collateral information from daughter or friend she's been staying with. - Get records from [place] and [facility] in [place] to clarify diagnosis and past treatments. - Although patient reports a diagnosis of bipolar, she doesn't endorse symptoms c/w anton, and reports she was prescribed venlafaxine unopposed, which would not be consistent with a bipolar diagnosis either. Will treat an unipolar depression for now, and start fluoxetine 20mg, titrate as tolerated, while monitoring for activation/destabilization. Advised patient that her diagnosis is unclear and we need to get additional information, and warned of risk of activation of SSRI. - Q 15 min checks for safety. Participate in groups and programming, work on healthy coping skills and discharge safety plan. - Of note, the patient has 2 preliminary hearings in [facility] [place], one on 2017 another on 12/09/2017. She claims no memory of being arrested, but will need to follow up to resolve these issues. - She will need outpatient services, including psychiatry, therapy, and case management. We will need to clarify what County she will be living in, and where she can receive services with her insurance. 11/19 - Continue Prozac 20 mg. daily - Daughter to visit this weekend. obtain supplemental information 11/20 - remains severely depressed and unable to CFS - tolerating prozac. will consider dose escalation tomorrow 11/21 - based on new information, will change primary mood d/o dx to BPAD I, MRE depressed - will start lithium ER 450mg po qhs. common risks and benefits reviewed and pt willing to resume mood stabilizer tx. EGFR and thyroid reviewed and ok. starting on low dose secondary to h/o possible toxicity and likely h/o med noncompliance. hopefully dispo will be favorable for longitudinal med oversight and allow for regular monitoring. - as she remains very depressed, will continue prozac unchanged for now but will defer any further titration. - will need Li level in 5 days 11/22 - Continue medications as above. Continue to evaluate nausea. [place] could be culprit, but I am hesitant to discontinue after one evening as she has tolerated [place] well in the past. Pt denies headache, tremor, dizziness, hot/ cold flashes, vision changes, or other abnormalities to suggest toxicity, especially considering dose of 450mg. She denies diarrhea, vomiting, or other circumstances to reflect acute changes in lithium level. - Continue Prozac as above to address depressive symptoms. 11/23 -the patient remains depressed in the context of her bipolar disorder. Today, I will increase her dose of Prozac from 20 mg daily to 30 mg daily. I advised the patient that the source of her nausea may actually be Prozac, rather than Eskalith, and I am encouraging to wait in anticipation of the resolution of the nausea. I will change her dose form of lithium from Eskalith 450 mg at bedtime to. Lithobid 300 mg twice daily. We will also obtain a lithium level in the morning. 11/24 -The patient's lithium level this morning was 0.5 mg. Because she is also taking hydrochlorothiazide for blood pressure, we will hold her dose of Lithobid at 300 mg 3 times daily and I recommend repeating the testing in the next week. Patient continues to have considerable nausea, circumstance that was initially attributed to Eskalith, but now appears to be more likely attributable to Cipro, given that she has reportedly tolerated SSRIs and lithium in the past without nausea. She tells me that she is less depressed, and her affect has become brighter. She is also more spontaneously verbal and slightly more animated. Patient denies suicidal thoughts. (2) Cognitive dysfunction 11/18 - Get collateral from friends/family and OP records. Differential includes depression/anxiety effects on cognition, component of delirium, dementia. Discussed these different possibilities with the patient, and the need for ongoing monitoring. - Scored 15/20 on the MOCA, missing 2 for visuospatial/executive, 1 for naming, 2 for attention, 3 for language, 2 for abstraction, 3 for delayed recall, and 1 for orientation. - Patient has not been driving due to concerns about her cognition, and reinforced that she should not drive until she has been cleared by a physician. -She will need ongoing monitoring and management as an outpatient to determine the underlying cause of her cognitive issues, and should be reassessed once her depression and anxiety are under better control. There is a strong family history of dementia, and I suspect that she is experiencing mild dementia symptoms in addition to her severe mood and anxiety. 11/23 -Patient has some difficulty recalling details, such as her previous medications , but seems to have a fairly reasonable command of her own history. It is not clear to me if she may be in part having symptoms of a "pseudodementia" associated with her depression, although the patient says that even when she is in normal mood she is having a lot of trouble remembering things like doctor's appointments, scheduled activities. (3) Anxiety 11/18 -endorses symptoms of generalized anxiety and PTSD, but has a limited historian unable to make a definitive diagnosis. Start with getting records from the [facility], and start SSRI as above. Hydroxyzine as needed for sleep and anxiety. She would benefit from outpatient therapy. 11/23 -the patient reports that she has been less anxious recently, and attributes this possibly to her medications. (4) UTI (urinary tract infection) Complete 5 day course of Septra. 11/19 - Not sensitive to Septra. - Switch to Cipro 500 mg. q12 h X 7 days 11/20 - tolerating cipro. continue 7 day course 11/24 -now appears that the patient's nausea may be secondary to Cipro. She is aware that she is taking a seven-day course, and wants to complete the course of treatment with Cipro in order to treat her urinary tract infection. The patient reports that she is not having symptoms of UTI at this point, such as pain, burning, frequency, urgency, or urinary discoloration. (5) Type 2 diabetes mellitus without complications Continue home dose of metformin and lisinopril. (6) Arthritis Continue home dose of Meloxicam, and f/u with PCP, Dr. Ivana Andersen in [place]. Discharge / Aftercare Planning Primary Care Physician: Name: Shoaib Cruz PA-C, Kurt Munoz Date of Appointment: Dec 02, 2017 Time of Appointment: 2:45 pm Appointment Notes: [address] [place] [address], [place] [address] Psychiatrist: Name: [facility] Crystal Lindsey Date of Appointment: Dec 03, 2017 Time of Appointment: 2:00 pm Appointment Notes: [address] [place] [address] Therapist: Name: [facility] Crystal Sr Date of Appointment: Dec 06, 2017 Time of Appointment: 11:00 am Appointment Notes: Appt with Blaine Sr - [address] [facility] [address] [place] [address] [employer]: Name: None Visit Code E&M Code: 54733 Inventory Assets Strengths: Willing for treatment, supportive friend, has providers recently Needs: Truthfulness in treatment, social sciences department chair assistance with housing, supports, aftercare, criminal charges Risk Factors Assessment : Yes /single/: Yes Higher / Fall in social status: Yes Health problems: Yes Mental Health Diagnoses: Yes Substance use disorders: No Previous attempt: No Family history of suicide: No Previous psychiatric stay: Yes Hopelessness: Yes Smoker: No Protective Factors Assessment : No Responsible for young children: No Employed: No Stable relationships: No Supportive family: No Good rapport with provider: No Absence of risk factors above: No Data Vital Signs Last 24 Hrs: Date Time Temp Pulse Resp B/P (MAP) Pulse Ox O2 Delivery O2 Flow Rate FiO2 11/24/17 06:50 36.9 74 16 128/78 83 120/84 11/23/17 22:01 85 112/72 11/23/17 14:34 94 14 124/69 Meds Administered Last 24 Hrs: Meds Administered (Past 24Hrs) Medications (Trade) Dose Ordered Sig/Thi Route Start Time Stop Time Status Last Admin Dose Admin [place] Carbonate (Lithobid Tab) 300 mg BID PO 11/23/17 22:00 12/23/17 21:59 11/24/17 08:45 300 MG Fluoxetine HCl (Prozac Cap) 30 mg QAM PO 11/24/17 09:00 12/24/17 08:59 11/24/17 08:41 30 MG Lab Results Last 24 Hrs: Last 24 Hours Test 11/24/17 06:49 [place] Level 0.5 mMOL/L
[2017-11-24 14:20] VITALS: BP 143/75; PULSE 90
[2017-11-24 19:46] VITALS: BP 123/77; PULSE 85; TEMP 36.7
[2017-11-24 22:40] VITALS: BP 123/77; PULSE 85; TEMP 36.7
[2017-11-25 07:00] VITALS: BP_SYST 149; BP_SYST 150; BP_DIAS 82; PULSE 77; PULSE 80; TEMP 36.9
[2017-11-25] MEDS: ONDANSETRON 8 MG TAB PO PRN (08:54)
[2017-11-25] MEDS: CIPROFLOXACIN 500 MG TAB PO SCH ×2 (10:04→21:07)
[2017-11-25] MEDS: METFORMIN HCL 500 MG TAB PO SCH ×2 (10:05→17:29)
[2017-11-25] MEDS: FLUOXETINE HCL 10 MG CAP PO SCH (10:06)
[2017-11-25] MEDS: MELOXICAM 7.5 MG TAB PO SCH (10:06)
[2017-11-25] MEDS: LISINOPRIL/HCTZ 20/12.5MG TAB PO SCH (10:06)
[2017-11-25] MEDS: LITHIUM CARBONATE SR 300 MG TAB (LITHOBID) PO SCH ×2 (10:06→21:07)
[2017-11-25] MEDS: FLUTICASONE PROPIONATE NA SPR 16 GM BTL NAE SCH (10:08)
--- NOTE | 2017-11-25 12:38 | Psychiatric Progress Notes ---
Progress Note Date of Service Nov 25, 2017. Interval History Maria M is a 62-year-old / white female who is currently homeless, reports a history of bipolar disorder but gives symptoms consistent with depression and anxiety and has only ever been on unopposed antidepressant treatment, has multiple medical problems and a very complex social history, who presents with worsening mood and suicidal ideation. Chief Complaint "I'm noticing my mood is getting a little bit better". Subjective Patient was seen & assessed interval progress reviewed with Nursing. Staff reports the patient continues to complain of nausea, unsure at this time of offensive medication, but potentially Cipro. Pt rated her mood a "4 and tired" last evening, but has continued to attend groups regularly. Pt was seen today to assess progress since admission. Pt states she has noticed an improvement in her mood, stating her thoughts are more positive and she is feeling more hopeful. Pt states she was nauseous again this morning, which has since improved with prn Zofran. Pt reports she just had a visit from her daughter during which they discussed aftercare and referral to a personal intermediate. The patient remains optimistic about this idea, feeling it will assist her with maintaining stability following discharge. Pt reports her sleep and appetite remain adequate. She denies SI at this encounter. Pt denies other concerns or needs today. Review of Systems Psych: denies symptoms other than stated above Constitutional: denied Cardiovascular: denied GI: mild nausea at time of encounter Neurologic: denied Remainder of 10 body systems also reviewed and denied other than noted above. Sleep Information Total Hours of Sleep: 7.50 Meal Information Percent of Breakfast Consumed: 100 Percent of Lunch Consumed: 80 Percent of Dinner Consumed: 100 Mental Status Exam During interview pt is: alert and oriented, cooperative Appearance: appropriately dressed, appropriately groomed Eye contact is: fair Motor behavior is: steady gait & station, no abnormal motor movements, psychomotor retardation Speech: other (responding fully to questions; however, minimal) Affect: mood congruent, depressed (Unclear what amount is related to mood and what is related to physical complaints of not feeling well. ) Mood is: depressed (but noticing improvement), other Thought process: goal directed, clear, coherent Thought content: reality based without delusions Suicidal thought are: denied, Plan: denied, Intent: denied Homicidal thoughts are: denied Hallucinations: denies auditory, denies visual Cognition: other (mild impairment in all spheres) Intelligence estimated to be: below average Insight: fair Judgement: fair Impression Pt reports ongoing nausea, but is feeling a bit better at time of encounter. Pt reports noticeable improvement in her mood, stating she feels more hopeful. Affect unchanged; however, a portion of this may be due to her not feeling well physically. Course of Cipro is to be finished tomorrow, and will hopefully be able to further assess offensive agent after discontinuation. Plan to continue medications at current doses and continue to evaluate mood and nausea. Pt has referral pending to [facility]'s personal intermediate, and her overall prognosis would be greatly increased with a period of supervision and stability at discharge. At this time, patient requires ongoing inpatient mental health treatment until medication adjustments are made and risk factors can be mitigated. Pt remains at risk of harm to self if discharged prematurely. Plan (1) Depression 11/18 - Pt poor historian, will need to get collateral information from daughter or friend she's been staying with. - Get records from [place] and [facility] in [place] to clarify diagnosis and past treatments. - Although patient reports a diagnosis of bipolar, she doesn't endorse symptoms c/w anton, and reports she was prescribed venlafaxine unopposed, which would not be consistent with a bipolar diagnosis either. Will treat an unipolar depression for now, and start fluoxetine 20mg, titrate as tolerated, while monitoring for activation/destabilization. Advised patient that her diagnosis is unclear and we need to get additional information, and warned of risk of activation of SSRI. - Q 15 min checks for safety. Participate in groups and programming, work on healthy coping skills and discharge safety plan. - Of note, the patient has 2 preliminary hearings in [facility], one on 2017 another on 12/09/2017. She claims no memory of being arrested, but will need to follow up to resolve these issues. - She will need outpatient services, including psychiatry, therapy, and case management. We will need to clarify what County she will be living in, and where she can receive services with her insurance. 11/19 - Continue Prozac 20 mg. daily - Daughter to visit this weekend. obtain supplemental information 11/20 - remains severely depressed and unable to CFS - tolerating prozac. will consider dose escalation tomorrow 11/21 - based on new information, will change primary mood d/o dx to BPAD I, MRE depressed - will start lithium ER 450mg po qhs. common risks and benefits reviewed and pt willing to resume mood stabilizer tx. EGFR and thyroid reviewed and ok. starting on low dose secondary to h/o possible toxicity and likely h/o med noncompliance. hopefully dispo will be favorable for longitudinal med oversight and allow for regular monitoring. - as she remains very depressed, will continue prozac unchanged for now but will defer any further titration. - will need Li level in 5 days 11/22 - Continue medications as above. Continue to evaluate nausea. [place] could be culprit, but I am hesitant to discontinue after one evening as she has tolerated [place] well in the past. Pt denies headache, tremor, dizziness, hot/ cold flashes, vision changes, or other abnormalities to suggest toxicity, especially considering dose of 450mg. She denies diarrhea, vomiting, or other circumstances to reflect acute changes in lithium level. - Continue Prozac as above to address depressive symptoms. 11/23 -the patient remains depressed in the context of her bipolar disorder. Today, I will increase her dose of Prozac from 20 mg daily to 30 mg daily. I advised the patient that the source of her nausea may actually be Prozac, rather than Eskalith, and I am encouraging to wait in anticipation of the resolution of the nausea. I will change her dose form of lithium from Eskalith 450 mg at bedtime to. Lithobid 300 mg twice daily. We will also obtain a lithium level in the morning. 11/24 -The patient's lithium level this morning was 0.5 mg. Because she is also taking hydrochlorothiazide for blood pressure, we will hold her dose of Lithobid at 300 mg 2 times daily and I recommend repeating the testing in the next week. Patient continues to have considerable nausea, circumstance that was initially attributed to Eskalith, but now appears to be more likely attributable to Cipro, given that she has reportedly tolerated SSRIs and lithium in the past without nausea. She tells me that she is less depressed, and her affect has become brighter. She is also more spontaneously verbal and slightly more animated. Patient denies suicidal thoughts. 11/25 - Continue medications as above: Lithobid 300mg BID and Prozac 30mg. Will need lithium level in the next few days considering dose change. (2) Cognitive dysfunction 11/18 - Get collateral from friends/family and OP records. Differential includes depression/anxiety effects on cognition, component of delirium, dementia. Discussed these different possibilities with the patient, and the need for ongoing monitoring. - Scored 15/20 on the MOCA, missing 2 for visuospatial/executive, 1 for naming, 2 for attention, 3 for language, 2 for abstraction, 3 for delayed recall, and 1 for orientation. - Patient has not been driving due to concerns about her cognition, and reinforced that she should not drive until she has been cleared by a physician. -She will need ongoing monitoring and management as an outpatient to determine the underlying cause of her cognitive issues, and should be reassessed once her depression and anxiety are under better control. There is a strong family history of dementia, and I suspect that she is experiencing mild dementia symptoms in addition to her severe mood and anxiety. 11/23 -Patient has some difficulty recalling details, such as her previous medications , but seems to have a fairly reasonable command of her own history. It is not clear to me if she may be in part having symptoms of a "pseudodementia" associated with her depression, although the patient says that even when she is in normal mood she is having a lot of trouble remembering things like doctor's appointments, scheduled activities. (3) Anxiety 11/18 -endorses symptoms of generalized anxiety and PTSD, but has a limited historian unable to make a definitive diagnosis. Start with getting records from [facility] and [facility], and start SSRI as above. Hydroxyzine as needed for sleep and anxiety. She would benefit from outpatient therapy. 11/23 -the patient reports that she has been less anxious recently, and attributes this possibly to her medications. (4) UTI (urinary tract infection) Complete 5 day course of Septra. 11/19 - Not sensitive to Septra. - Switch to Cipro 500 mg. q12 h X 7 days 11/20 - tolerating cipro. continue 7 day course 11/24 -now appears that the patient's nausea may be secondary to Cipro. She is aware that she is taking a seven-day course, and wants to complete the course of treatment with Cipro in order to treat her urinary tract infection. The patient reports that she is not having symptoms of UTI at this point, such as pain, burning, frequency, urgency, or urinary discoloration. (5) Type 2 diabetes mellitus without complications Continue home dose of metformin and lisinopril. 3/8 - Daily bedside glucose ordered to ensure diabetes is adequately managed. (6) Arthritis Continue home dose of Meloxicam, and f/u with PCP, Dr. Ivana Andersen in [place]. Discharge / Aftercare Planning Primary Care Physician: Name: Shoaib Cruz PA-C, [facility] [place] Date of Appointment: Dec 02, 2017 Time of Appointment: 2:45 pm Appointment Notes: [address] [place] [address], [place] [address] Psychiatrist: Name: [facility] Crystal Lindsey Date of Appointment: Dec 03, 2017 Time of Appointment: 2:00 pm Appointment Notes: [address] [place] [address] Therapist: Name: [facility] Crystal Sr Date of Appointment: Dec 06, 2017 Time of Appointment: 11:00 am Appointment Notes: Appt with Blaine Sr - [address] [facility] [place] [address] [employer] Counselor: Name: None Visit Code E&M Code: 62682 Inventory Assets Strengths: Willing for treatment, supportive friend, has providers recently Needs: Truthfulness in treatment, social science analyst assistance with housing, supports, aftercare, criminal charges Risk Factors Assessment : Yes /single/: Yes Higher / Fall in social status: Yes Health problems: Yes Mental Health Diagnoses: Yes Substance use disorders: No Previous attempt: No Family history of suicide: No Previous psychiatric stay: Yes Hopelessness: Yes Smoker: No Protective Factors Assessment : No Responsible for young children: No Employed: No Stable relationships: No Supportive family: No Good rapport with provider: No Absence of risk factors above: No Data Vital Signs Last 24 Hrs: Date Time Temp Pulse Resp B/P (MAP) Pulse Ox O2 Delivery O2 Flow Rate FiO2 11/25/17 07:00 36.9 77 16 149/82 80 150/82 11/24/17 22:40 36.7 85 18 123/77 11/24/17 19:46 36.7 85 18 123/77 11/24/17 14:20 90 16 143/75 Meds Administered Last 24 Hrs: Meds Administered (Past 24Hrs) Medications (Trade) Dose Ordered Sig/Thi Route Start Time Stop Time Status Last Admin Dose Admin [place] Carbonate (Lithobid Tab) 300 mg BID PO 11/23/17 22:00 12/23/17 21:59 11/25/17 10:06 300 MG Fluoxetine HCl (Prozac Cap) 30 mg QAM PO 11/24/17 09:00 12/24/17 08:59 11/25/17 10:06 30 MG Lab Results Last 24 Hrs: Last 24 Hours Test 11/25/17 08:44 Bedside Glucose 163 mg/dl
[2017-11-25] MEDS: hydrOXYzine HCL 25 MG TAB PO PRN (21:07)
[2017-11-26 06:51] VITALS: BP_SYST 120; BP_SYST 137; BP_DIAS 79; BP_DIAS 81; PULSE 73; PULSE 78; TEMP 36.9
[2017-11-26] MEDS: FLUTICASONE PROPIONATE NA SPR 16 GM BTL NAE SCH (08:57)
[2017-11-26] MEDS: MELOXICAM 7.5 MG TAB PO SCH (08:58)
[2017-11-26] MEDS: LISINOPRIL/HCTZ 20/12.5MG TAB PO SCH (08:58)
[2017-11-26] MEDS: LITHIUM CARBONATE SR 300 MG TAB (LITHOBID) PO SCH ×2 (08:58→21:42)
[2017-11-26] MEDS: FLUOXETINE HCL 10 MG CAP PO SCH (08:58)
[2017-11-26] MEDS: METFORMIN HCL 500 MG TAB PO SCH ×2 (08:58→17:40)
--- NOTE | 2017-11-26 09:36 | Psychiatric Progress Notes ---
Progress Note Date of Service Nov 26, 2017. Interval History Maria M is a 62-year-old / white female who is currently homeless, reports a history of bipolar disorder but gives symptoms consistent with depression and anxiety and has most recently been on unopposed antidepressant treatment, has multiple medical problems and a very complex social history, who presents with worsening mood and suicidal ideation. Chief Complaint "I'm feeling a little better today". Subjective Patient was seen & assessed interval progress reviewed with Treatment Team. Staff reports the patient received a visit from her daughter yesterday who voiced concern about structure and supervision at a personal care level. Social work became involved to reassure that this is the patient's best option to receive supervision of medication administration and receive enough supervision to transition her to self-care eventually. Daughter reports a more rapid cycling history than she has seen in the patient during this hospitalization. Staff states the patient's nausea is ongoing, and today is the patient's last day on Cipro for her UTI. Pt was seen today to assess progress since admission. Pt reports she is feeling a bit better today in regard to ongoing nausea. She states she feels these physical symptoms have clouded her ability to evaluate her mood recently. She reports feeling "hopeless" when she woke up this morning with nausea, but denies formal SI associated with this. Pt states she and her daughter discussed the referral to [facility], which she states they both agree is a good option for her at this time. Pt is optimistic that her nausea will resolve with discontinuation of Cipro, her last dose is today. Pt denies other needs or concerns today. Review of Systems Psych: denies symptoms other than stated above Constitutional: denied Cardiovascular: denied GI: mild nausea ongoing Neurologic: denied Remainder of 10 body systems also reviewed and denied other than noted above. Sleep Information Total Hours of Sleep: 7.75 Meal Information Percent of Breakfast Consumed: 100 Percent of Lunch Consumed: 80 Percent of Dinner Consumed: 90 Mental Status Exam During interview pt is: alert and oriented, cooperative Appearance: appropriately dressed, appropriately groomed, other (appearance is consistent with patient reports of not feeling well) Eye contact is: fair Motor behavior is: steady gait & station, no abnormal motor movements, psychomotor retardation Speech: normal in rate, rhythm & volume Affect: mood congruent, depressed (depression vs. not feeling well physically) Mood is: depressed (improving) Thought process: goal directed, clear, coherent Thought content: reality based without delusions Suicidal thought are: denied, Plan: denied, Intent: denied Homicidal thoughts are: denied Hallucinations: denies auditory, denies visual Cognition: other (mild impairment likely in all spheres) Intelligence estimated to be: below average Insight: fair Judgement: fair Impression Pt receives last dose of Cipro today, and hopefully will notice a resolution of the nausea with discontinuation. She states these physical complaints have a large effect on her mood and she is not sure that she is improving much. Affect unchanged; however, a portion of this may be due to her not feeling well physically. Pt remains agreeable to referral to [facility] to allow for more successful transition to self-care. Pt states she is agreeable to increasing her Prozac to 40mg to continue to target mood, as this depressive phase has lasted longer than daughter reports is typical and for ease of dosing on an outpatient basis as patient is known to be non-compliant with medications. At this time, patient requires ongoing inpatient mental health treatment until medication adjustments are made and housing can be resolved. Pt remains at risk of harm to self if discharged prematurely. Plan (1) Depression 11/18 - Pt poor historian, will need to get collateral information from daughter or friend she's been staying with. - Get records from [place] and [facility] in [place] to clarify diagnosis and past treatments. - Although patient reports a diagnosis of bipolar, she doesn't endorse symptoms c/w anton, and reports she was prescribed venlafaxine unopposed, which would not be consistent with a bipolar diagnosis either. Will treat an unipolar depression for now, and start fluoxetine 20mg, titrate as tolerated, while monitoring for activation/destabilization. Advised patient that her diagnosis is unclear and we need to get additional information, and warned of risk of activation of SSRI. - Q 15 min checks for safety. Participate in groups and programming, work on healthy coping skills and discharge safety plan. - Of note, the patient has 2 preliminary hearings in [facility], one on 2017 another on 12/09/2017. She claims no memory of being arrested, but will need to follow up to resolve these issues. - She will need outpatient services, including psychiatry, therapy, and case management. We will need to clarify what [place] she will be living in, and where she can receive services with her insurance. 11/19 - Continue Prozac 20 mg. daily - Daughter to visit this weekend. obtain supplemental information 11/20 - remains severely depressed and unable to CFS - tolerating prozac. will consider dose escalation tomorrow 11/21 - based on new information, will change primary mood d/o dx to BPAD I, MRE depressed - will start lithium ER 450mg po qhs. common risks and benefits reviewed and pt willing to resume mood stabilizer tx. EGFR and thyroid reviewed and ok. starting on low dose secondary to h/o possible toxicity and likely h/o med noncompliance. hopefully dispo will be favorable for longitudinal med oversight and allow for regular monitoring. - as she remains very depressed, will continue prozac unchanged for now but will defer any further titration. - will need Li level in 5 days 11/22 - Continue medications as above. Continue to evaluate nausea. Goff could be culprit, but I am hesitant to discontinue after one evening as she has tolerated Goff well in the past. Pt denies headache, tremor, dizziness, hot/ cold flashes, vision changes, or other abnormalities to suggest toxicity, especially considering dose of 450mg. She denies diarrhea, vomiting, or other circumstances to reflect acute changes in lithium level. - Continue Prozac as above to address depressive symptoms. 11/23 -the patient remains depressed in the context of her bipolar disorder. Today, I will increase her dose of Prozac from 20 mg daily to 30 mg daily. I advised the patient that the source of her nausea may actually be Prozac, rather than Eskalith, and I am encouraging to wait in anticipation of the resolution of the nausea. I will change her dose form of lithium from Eskalith 450 mg at bedtime to. Lithobid 300 mg twice daily. We will also obtain a lithium level in the morning. 11/24 -The patient's lithium level this morning was 0.5 mg. Because she is also taking hydrochlorothiazide for blood pressure, we will hold her dose of Lithobid at 300 mg 2 times daily and I recommend repeating the testing in the next week. Patient continues to have considerable nausea, circumstance that was initially attributed to Eskalith, but now appears to be more likely attributable to Cipro, given that she has reportedly tolerated SSRIs and lithium in the past without nausea. She tells me that she is less depressed, and her affect has become brighter. She is also more spontaneously verbal and slightly more animated. Patient denies suicidal thoughts. 11/25 - Continue medications as above: Lithobid 300mg BID and Prozac 30mg. Will need lithium level in the next few days considering dose change. 11/26 - Increase Prozac to 40mg qAM. Continue Lithobid 300mg BID. 11/28 would be 5 days after lithium dosage change, would consider getting lithium level. - Continue to encourage group participation (2) Cognitive dysfunction 11/18 - Get collateral from friends/family and OP records. Differential includes depression/anxiety effects on cognition, component of delirium, dementia. Discussed these different possibilities with the patient, and the need for ongoing monitoring. - Scored 15/20 on the MOCA, missing 2 for visuospatial/executive, 1 for naming, 2 for attention, 3 for language, 2 for abstraction, 3 for delayed recall, and 1 for orientation. - Patient has not been driving due to concerns about her cognition, and reinforced that she should not drive until she has been cleared by a physician. -She will need ongoing monitoring and management as an outpatient to determine the underlying cause of her cognitive issues, and should be reassessed once her depression and anxiety are under better control. There is a strong family history of dementia, and I suspect that she is experiencing mild dementia symptoms in addition to her severe mood and anxiety. 11/23 -Patient has some difficulty recalling details, such as her previous medications , but seems to have a fairly reasonable command of her own history. It is not clear to me if she may be in part having symptoms of a "pseudodementia" associated with her depression, although the patient says that even when she is in normal mood she is having a lot of trouble remembering things like doctor's appointments, scheduled activities. (3) Anxiety 11/18 -endorses symptoms of generalized anxiety and PTSD, but has a limited historian unable to make a definitive diagnosis. Start with getting records from the [facility] and [facility], and start SSRI as above. Hydroxyzine as needed for sleep and anxiety. She would benefit from outpatient therapy. 11/23 -the patient reports that she has been less anxious recently, and attributes this possibly to her medications. (4) UTI (urinary tract infection) Complete 5 day course of Septra. 11/19 - Not sensitive to Septra. - Switch to Cipro 500 mg. q12 h X 7 days 11/20 - tolerating cipro. continue 7 day course 11/24 -now appears that the patient's nausea may be secondary to Cipro. She is aware that she is taking a seven-day course, and wants to complete the course of treatment with Cipro in order to treat her urinary tract infection. The patient reports that she is not having symptoms of UTI at this point, such as pain, burning, frequency, urgency, or urinary discoloration. 11/26 - Cipro d/c'd today as treatment course is finished. Will monitor for resolution of nausea, likely associated with this course of medication. (5) Type 2 diabetes mellitus without complications Continue home dose of metformin and lisinopril. 11/25 - Daily bedside glucose ordered to ensure diabetes is adequately managed. (6) Arthritis Continue home dose of Meloxicam, and f/u with PCP, Dr. Ivana Andersen in [place]. Discharge / Aftercare Planning Primary Care Physician: Name: Shoaib Cruz PA-C, Kurt Munoz Date of Appointment: Dec 02, 2017 Time of Appointment: 2:45 pm Appointment Notes: [address] [place] [address] [place] [address] Psychiatrist: Name: DEVANTE Lindsey Date of Appointment: Dec 03, 2017 Time of Appointment: 2:00 pm Appointment Notes: [address] [place] [address] Therapist: Name: DEVANTE Sr Date of Appointment: Dec 06, 2017 Time of Appointment: 11:00 am Appointment Notes: Appt with Blaine Sr - [address] [place] [address] [place] [address] Senior Benefits Manager: Name: None Visit Code E&M Code: 05931 Inventory Assets Strengths: Willing for treatment, supportive friend, has providers recently Needs: Truthfulness in treatment, social scientist assistance with housing, supports, aftercare, criminal charges Risk Factors Assessment : Yes /single/: Yes Higher / Fall in social status: Yes Health problems: Yes Mental Health Diagnoses: Yes Substance use disorders: No Previous attempt: No Family history of suicide: No Previous psychiatric stay: Yes Hopelessness: Yes Smoker: No Protective Factors Assessment : No Responsible for young children: No Employed: No Stable relationships: No Supportive family: No Good rapport with provider: No Absence of risk factors above: No Data Vital Signs Last 24 Hrs: Date Time Temp Pulse Resp B/P (MAP) Pulse Ox O2 Delivery O2 Flow Rate FiO2 11/26/17 06:51 36.9 73 18 120/79 78 137/81 Lab Results Last 24 Hrs: Last 24 Hours Test 11/26/17 08:16 Bedside Glucose 147 mg/dl
[2017-11-27 06:26] VITALS: BP_SYST 144; BP_SYST 159; BP_DIAS 84; BP_DIAS 85; PULSE 74; PULSE 82; TEMP 36.9
[2017-11-27] MEDS: METFORMIN HCL 500 MG TAB PO SCH ×2 (08:48→17:55)
[2017-11-27] MEDS: FLUTICASONE PROPIONATE NA SPR 16 GM BTL NAE SCH (08:48)
[2017-11-27] MEDS: LITHIUM CARBONATE SR 300 MG TAB (LITHOBID) PO SCH ×2 (08:48→21:21)
[2017-11-27] MEDS: MELOXICAM 7.5 MG TAB PO SCH (08:48)
[2017-11-27] MEDS: LISINOPRIL/HCTZ 20/12.5MG TAB PO SCH (08:49)
[2017-11-27] MEDS: FLUOXETINE HCL 10 MG CAP PO SCH (08:49)
--- NOTE | 2017-11-27 10:56 | Psychiatric Progress Notes ---
Progress Note Date of Service Nov 27, 2017. Interval History Maria M is a 62-year-old / white female who is currently homeless, reports a history of bipolar disorder but gives symptoms consistent with depression and anxiety and has most recently been on unopposed antidepressant treatment, has multiple medical problems and a very complex social history, who presents with worsening mood and suicidal ideation. Chief Complaint "I didn't sleep well last night, just tossing and turning". Subjective Patient was seen & assessed interval progress reviewed with Nursing. Staff reports the patient has been accepted to [facility] at discharge. Necessary paperwork to be completed and set back to facility. Staff states the patient's nausea has been improving, as she completed her course of Cipro yesterday. Pt was seen today to assess progress since admission. Pt was evaluated while laying in bed as she states she did not sleep well last evening and was wanting to get some rest. Pt states she has noticed her mood is "a bit brighter". She is pleased about her acceptance to [facility] and feels "it's another step in the road, but a good one." Pt feels this transition will be beneficial to her and help her maintain stability. Pt states she was a bit nauseous last evening and reports abdominal cramps. She reports these have resolved this morning and she is feeling a bit better. Will continue to monitor for nausea in the case that it was unrelated to her course of Cipro. Pt denies SI at today's encounter. She does not report any other concerns or needs today. Review of Systems Psych: denies symptoms other than stated above Constitutional: fatigue Cardiovascular: denied GI: nausea and abd cramping improving Neurologic: denied Remainder of 10 body systems also reviewed and denied other than noted above. Sleep Information Total Hours of Sleep: 7.75 Meal Information Percent of Breakfast Consumed: 75 Percent of Lunch Consumed: 70 Percent of Dinner Consumed: 100 Mental Status Exam During interview pt is: alert and oriented, cooperative, other (groggy as she did not sleep well last evening) Appearance: appropriately dressed, disheveled (as she was evaluated while in bed), other (appearance is consistent with patient reports of not feeling well) Eye contact is: fair Motor behavior is: steady gait & station, no abnormal motor movements, psychomotor retardation Speech: normal in rate, rhythm & volume Affect: mood congruent, depressed (some brightening) Mood is: other ("a bit brighter") Thought process: goal directed, clear, coherent Thought content: reality based without delusions Suicidal thought are: denied, Plan: denied, Intent: denied Homicidal thoughts are: denied Hallucinations: denies auditory, denies visual Cognition: other (mild impairment likely in all spheres) Intelligence estimated to be: below average Insight: fair Judgement: fair Impression Pt is reported to have a mildly brighter affect on the unit. Pt also confirms that she is feeling a bit better. Pt reports nausea and abdominal cramping last evening, but feels this is improving. Pt received her last dose of Cipro yesterday, will continue to monitor for ongoing nausea. If nausea continuing, would consider consolidating Lithobid to one dose in the evening. Pt was accepted to [facility] and feels this will be a good transition for her. Would be watchful of behavior with Prozac on board. Pt remains flat and depressed and we are seeing only a minimal improvement in mood. Daughter reports history of rapid cycling, will continue to watch dosage and response carefully as Lithobid is titrated to therapeutic levels. At this time, patient requires ongoing inpatient mental health treatment until medication adjustments are made and housing can be resolved. Pt remains at risk of harm to self if discharged prematurely. Plan (1) Depression 11/18 - Pt poor historian, will need to get collateral information from daughter or friend she's been staying with. - Get records from [place] and [facility] in [place] to clarify diagnosis and past treatments. - Although patient reports a diagnosis of bipolar, she doesn't endorse symptoms c/w anton, and reports she was prescribed venlafaxine unopposed, which would not be consistent with a bipolar diagnosis either. Will treat an unipolar depression for now, and start fluoxetine 20mg, titrate as tolerated, while monitoring for activation/destabilization. Advised patient that her diagnosis is unclear and we need to get additional information, and warned of risk of activation of SSRI. - Q 15 min checks for safety. Participate in groups and programming, work on healthy coping skills and discharge safety plan. - Of note, the patient has 2 preliminary hearings in [facility], one on 2017 another on 12/09/2017. She claims no memory of being arrested, but will need to follow up to resolve these issues. - She will need outpatient services, including psychiatry, therapy, and case management. We will need to clarify what [place] she will be living in, and where she can receive services with her insurance. 11/19 - Continue Prozac 20 mg. daily - Daughter to visit this weekend. obtain supplemental information 11/20 - remains severely depressed and unable to CFS - tolerating prozac. will consider dose escalation tomorrow 11/21 - based on new information, will change primary mood d/o dx to BPAD I, MRE depressed - will start lithium ER 450mg po qhs. common risks and benefits reviewed and pt willing to resume mood stabilizer tx. EGFR and thyroid reviewed and ok. starting on low dose secondary to h/o possible toxicity and likely h/o med noncompliance. hopefully dispo will be favorable for longitudinal med oversight and allow for regular monitoring. - as she remains very depressed, will continue prozac unchanged for now but will defer any further titration. - will need Li level in 5 days 11/22 - Continue medications as above. Continue to evaluate nausea. [place] could be culprit, but I am hesitant to discontinue after one evening as she has tolerated [place] well in the past. Pt denies headache, tremor, dizziness, hot/ cold flashes, vision changes, or other abnormalities to suggest toxicity, especially considering dose of 450mg. She denies diarrhea, vomiting, or other circumstances to reflect acute changes in lithium level. - Continue Prozac as above to address depressive symptoms. 11/23 -the patient remains depressed in the context of her bipolar disorder. Today, I will increase her dose of Prozac from 20 mg daily to 30 mg daily. I advised the patient that the source of her nausea may actually be Prozac, rather than Eskalith, and I am encouraging to wait in anticipation of the resolution of the nausea. I will change her dose form of lithium from Eskalith 450 mg at bedtime to. Lithobid 300 mg twice daily. We will also obtain a lithium level in the morning. 11/24 -The patient's lithium level this morning was 0.5 mg. Because she is also taking hydrochlorothiazide for blood pressure, we will hold her dose of Lithobid at 300 mg 2 times daily and I recommend repeating the testing in the next week. Patient continues to have considerable nausea, circumstance that was initially attributed to Eskalith, but now appears to be more likely attributable to Cipro, given that she has reportedly tolerated SSRIs and lithium in the past without nausea. She tells me that she is less depressed, and her affect has become brighter. She is also more spontaneously verbal and slightly more animated. Patient denies suicidal thoughts. 11/25 - Continue medications as above: Lithobid 300mg BID and Prozac 30mg. Will need lithium level in the next few days considering dose change. 11/26 - Increase Prozac to 40mg qAM. Continue Lithobid 300mg BID. 11/28 would be 5 days after lithium dosage change, would consider getting lithium level. - Continue to encourage group participation 11/27 - Continue medications as above. Continue to monitor behavior on 40mg of Prozac; however, patient's affect remains depressed. - Cipro discontinued as course of ABX treatment completed. Reports improvement in nausea. If ongoing, consider consolidation of Lithobid to one dose at HS. - Will require lithium level early next week. - Paperwork to be completed and returned to [facility] (2) Cognitive dysfunction 11/18 - Get collateral from friends/family and OP records. Differential includes depression/anxiety effects on cognition, component of delirium, dementia. Discussed these different possibilities with the patient, and the need for ongoing monitoring. - Scored 15/20 on the MOCA, missing 2 for visuospatial/executive, 1 for naming, 2 for attention, 3 for language, 2 for abstraction, 3 for delayed recall, and 1 for orientation. - Patient has not been driving due to concerns about her cognition, and reinforced that she should not drive until she has been cleared by a physician. -She will need ongoing monitoring and management as an outpatient to determine the underlying cause of her cognitive issues, and should be reassessed once her depression and anxiety are under better control. There is a strong family history of dementia, and I suspect that she is experiencing mild dementia symptoms in addition to her severe mood and anxiety. 11/23 -Patient has some difficulty recalling details, such as her previous medications , but seems to have a fairly reasonable command of her own history. It is not clear to me if she may be in part having symptoms of a "pseudodementia" associated with her depression, although the patient says that even when she is in normal mood she is having a lot of trouble remembering things like doctor's appointments, scheduled activities. (3) Anxiety 11/18 -endorses symptoms of generalized anxiety and PTSD, but has a limited historian unable to make a definitive diagnosis. Start with getting records from the [facility] and [facility], and start SSRI as above. Hydroxyzine as needed for sleep and anxiety. She would benefit from outpatient therapy. 11/23 -the patient reports that she has been less anxious recently, and attributes this possibly to her medications. (4) UTI (urinary tract infection) Complete 5 day course of Septra. 11/19 - Not sensitive to Septra. - Switch to Cipro 500 mg. q12 h X 7 days 11/20 - tolerating cipro. continue 7 day course 11/24 -now appears that the patient's nausea may be secondary to Cipro. She is aware that she is taking a seven-day course, and wants to complete the course of treatment with Cipro in order to treat her urinary tract infection. The patient reports that she is not having symptoms of UTI at this point, such as pain, burning, frequency, urgency, or urinary discoloration. 11/26 - Cipro d/c'd today as treatment course is finished. Will monitor for resolution of nausea, likely associated with this course of medication. (5) Type 2 diabetes mellitus without complications Continue home dose of metformin and lisinopril. 11/25 - Daily bedside glucose ordered to ensure diabetes is adequately managed. (6) Arthritis Continue home dose of Meloxicam, and f/u with PCP, Dr. Ivana Andersen in [place]. Discharge / Aftercare Planning Primary Care Physician: Name: Shoaib Cruz PA-C, Kurt Munoz Date of Appointment: Dec 02, 2017 Time of Appointment: 2:45 pm Appointment Notes: [address] [place] [address], [place] [address] Psychiatrist: Name: [facility] Crystal Lindsey Date of Appointment: Dec 03, 2017 Time of Appointment: 2:00 pm Appointment Notes: [address] [place] [address] [place] [id number] Therapist: Name: [facility] Crystal Sr Date of Appointment: Dec 06, 2017 Time of Appointment: 11:00 am Appointment Notes: Appt with Blaine Sr [address], [place] [address] 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 Other: Name of Appointment #1: [facility] Appointment #1 Notes: [address] [place] [address] [place] [id number] Visit Code E&M Code: 98755 Inventory Assets Strengths: Willing for treatment, supportive friend, has providers recently Needs: Truthfulness in treatment, medical social consultant assistance with housing, supports, aftercare, criminal charges Risk Factors Assessment : Yes /single/: Yes Higher / Fall in social status: Yes Health problems: Yes Mental Health Diagnoses: Yes Substance use disorders: No Previous attempt: No Family history of suicide: No Previous psychiatric stay: Yes Hopelessness: Yes Smoker: No Protective Factors Assessment : No Responsible for young children: No Employed: No Stable relationships: No Supportive family: No Good rapport with provider: No Absence of risk factors above: No Data Vital Signs Last 24 Hrs: Date Time Temp Pulse Resp B/P (MAP) Pulse Ox O2 Delivery O2 Flow Rate FiO2 11/27/17 06:26 36.9 74 20 159/84 82 144/85 Meds Administered Last 24 Hrs: Meds Administered (Past 24Hrs) Medications (Trade) Dose Ordered Sig/Thi Route Start Time Stop Time Status Last Admin Dose Admin Fluoxetine HCl (Prozac Cap) 40 mg QAM PO 11/27/17 09:00 12/24/17 08:59 11/27/17 08:49 40 MG Lab Results Last 24 Hrs: Last 24 Hours Test 11/27/17 08:29 Bedside Glucose 150 mg/dl
--- NOTE | 2017-11-27 18:39 | Psych Management Progress Note ---
Psychiatry Miscellaneous Date of Service: Nov 27, 2017. Patient seen, MS assessed. Rates mood as "a little better", she still appears blunted. Nausea subsiding with distance from Abx. SHe is tolerating lithium, level 11/29/17. completed paperwork for [facility] with [facility] Re[facility]. Encouraged cooperation with care and treatment plan as outlined by allied health prescriber. ongoing need for MNPR. given CDE.
[2017-11-28] MEDS: hydrOXYzine HCL 25 MG TAB PO PRN (00:21)
[2017-11-28 06:34] VITALS: BP_SYST 163; BP_SYST 169; BP_DIAS 129; BP_DIAS 85; PULSE 87; PULSE 89; TEMP 36.6
--- NOTE | 2017-11-28 07:31 | Psychiatric Progress Notes ---
Progress Note Date of Service Nov 28, 2017. Interval History Maria M is a 62-year-old / white female who is currently homeless, reports a history of bipolar disorder but gives symptoms consistent with depression and anxiety and has most recently been on unopposed antidepressant treatment, has multiple medical problems and a very complex social history, who presents with worsening mood and suicidal ideation. Chief Complaint "I'm feeling better". Subjective Patient was seen & assessed interval progress reviewed with Nursing. Per nursing she seems to show slow improvement. SHe is feeling physically better and attending programming, she remains depressed however. She has accepted plan to go to [facility]. sleep is 5+ hours as she was still sleeping at change of shift through 8am rounds, and noted to nap in the days. Mood "okay....better" She rates mood as 4/10 (10 manic, 5 euthymic, 0 m ost depressed) compared to a 0 at time of admission SHe denies obvious SE to her medications to include denying tremor, dry mouth, nausea, changes in bowel or bladder habits and feels it is helping. SHe denies safety concerns. SHe denies s/sx of elevated or mixed mood. Her main complaint is that sleep was poor last 2 nights, took vistaril, she does agree she has been resting in the days, Provider asked her to try to stay up in the day with limited 10min power naps x2 so that she can sleep tonight. She stated "okay" but then promptly lays down as provider leaves the room mood BP is up today, she has a VALDEZ but that has been the last 2 days, no Chest pain or pressure, denies feeling dizzy no longer feeling nauseated She denies other physical concerns on review of systems Sleep Information Total Hours of Sleep: 5.00 Meal Information Percent of Breakfast Consumed: 75 Percent of Lunch Consumed: 100 Percent of Dinner Consumed: 100 Mental Status Exam During interview pt is: alert and oriented, cooperative, other (groggy as she did not sleep well last evening) Appearance: appropriately dressed, disheveled (as she was evaluated while in bed), other (appearance is consistent with patient reports of feeling tired) Eye contact is: fair Motor behavior is: steady gait & station, no abnormal motor movements, psychomotor retardation Speech: normal in rate, rhythm & volume Affect: blunted Mood is: other ("okay...better") Thought process: goal directed, clear, coherent Thought content: reality based without delusions Suicidal thought are: denied, Plan: denied, Intent: denied Homicidal thoughts are: denied Hallucinations: denies auditory, denies visual Cognition: other (mild impairment likely in all spheres) Intelligence estimated to be: below average Insight: fair Judgement: fair Impression Pt is reported to have a slow improvement (see mood rating noted above). Pt also confirms that she is feeling a bit better but not yet euthymic. Need to monitor sleep as days and nights are starting to get turned, BP and headaches. Pt was accepted to [facility] and feels this will be a good transition for her. Would be watchful of mood Prozac. Pt remains flat and depressed and we are seeing only a minimal improvement in mood but given daughter'sreports history of rapid cycling, will continue to watch dosage and response carefully as Lithobid is titrated to therapeutic levels, level 11/29/17 and she is on lisinopril. At this time, patient requires ongoing inpatient mental health treatment until medication adjustments are made and housing can be resolved. Pt remains at risk of harm to self if discharged prematurely. Plan (1) Depression 11/18 - Pt poor historian, will need to get collateral information from daughter or friend she's been staying with. - Get records from [place] and [facility] in [place] to clarify diagnosis and past treatments. - Although patient reports a diagnosis of bipolar, she doesn't endorse symptoms c/w anton, and reports she was prescribed venlafaxine unopposed, which would not be consistent with a bipolar diagnosis either. Will treat an unipolar depression for now, and start fluoxetine 20mg, titrate as tolerated, while monitoring for activation/destabilization. Advised patient that her diagnosis is unclear and we need to get additional information, and warned of risk of activation of SSRI. - Q 15 min checks for safety. Participate in groups and programming, work on healthy coping skills and discharge safety plan. - Of note, the patient has 2 preliminary hearings in [facility], one on 2017 another on 12/09/2017. She claims no memory of being arrested, but will need to follow up to resolve these issues. - She will need outpatient services, including psychiatry, therapy, and case management. We will need to clarify what County she will be living in, and where she can receive services with her insurance. 11/19 - Continue Prozac 20 mg. daily - Daughter to visit this weekend. obtain supplemental information 11/20 - remains severely depressed and unable to CFS - tolerating prozac. will consider dose escalation tomorrow 11/21 - based on new information, will change primary mood d/o dx to BPAD I, MRE depressed - will start lithium ER 450mg po qhs. common risks and benefits reviewed and pt willing to resume mood stabilizer tx. EGFR and thyroid reviewed and ok. starting on low dose secondary to h/o possible toxicity and likely h/o med noncompliance. hopefully dispo will be favorable for longitudinal med oversight and allow for regular monitoring. - as she remains very depressed, will continue prozac unchanged for now but will defer any further titration. - will need Li level in 5 days 11/22 - Continue medications as above. Continue to evaluate nausea. La[place]dale could be culprit, but I am hesitant to discontinue after one evening as she has tolerated [place] well in the past. Pt denies headache, tremor, dizziness, hot/ cold flashes, vision changes, or other abnormalities to suggest toxicity, especially considering dose of 450mg. She denies diarrhea, vomiting, or other circumstances to reflect acute changes in lithium level. - Continue Prozac as above to address depressive symptoms. 11/23 -the patient remains depressed in the context of her bipolar disorder. Today, I will increase her dose of Prozac from 20 mg daily to 30 mg daily. I advised the patient that the source of her nausea may actually be Prozac, rather than Eskalith, and I am encouraging to wait in anticipation of the resolution of the nausea. I will change her dose form of lithium from Eskalith 450 mg at bedtime to. Lithobid 300 mg twice daily. We will also obtain a lithium level in the morning. 11/24 -The patient's lithium level this morning was 0.5 mg. Because she is also taking hydrochlorothiazide for blood pressure, we will hold her dose of Lithobid at 300 mg 2 times daily and I recommend repeating the testing in the next week. Patient continues to have considerable nausea, circumstance that was initially attributed to Eskalith, but now appears to be more likely attributable to Cipro, given that she has reportedly tolerated SSRIs and lithium in the past without nausea. She tells me that she is less depressed, and her affect has become brighter. She is also more spontaneously verbal and slightly more animated. Patient denies suicidal thoughts. 11/25 - Continue medications as above: Lithobid 300mg BID and Prozac 30mg. Will need lithium level in the next few days considering dose change. 11/26 - Increase Prozac to 40mg qAM. Continue Lithobid 300mg BID. 11/28 would be 5 days after lithium dosage change, would consider getting lithium level. - Continue to encourage group participation 11/27 and 11/28 - Continue medications as above. Continue to monitor behavior on 40mg of Prozac; however, patient's affect remains depressed but slowly improving. - Cipro discontinued as course of ABX treatment completed. Reports improvement in nausea. If ongoing, consider consolidation of Lithobid to one dose at HS. - Will require lithium level 11/29/17 - Paperwork completed and needs returned to [facility] (2) Cognitive dysfunction 11/18 - Get collateral from friends/family and OP records. Differential includes depression/anxiety effects on cognition, component of delirium, dementia. Discussed these different possibilities with the patient, and the need for ongoing monitoring. - Scored 15/20 on the MOCA, missing 2 for visuospatial/executive, 1 for naming, 2 for attention, 3 for language, 2 for abstraction, 3 for delayed recall, and 1 for orientation. - Patient has not been driving due to concerns about her cognition, and reinforced that she should not drive until she has been cleared by a physician. -She will need ongoing monitoring and management as an outpatient to determine the underlying cause of her cognitive issues, and should be reassessed once her depression and anxiety are under better control. There is a strong family history of dementia, and I suspect that she is experiencing mild dementia symptoms in addition to her severe mood and anxiety. 11/23 -Patient has some difficulty recalling details, such as her previous medications , but seems to have a fairly reasonable command of her own history. It is not clear to me if she may be in part having symptoms of a "pseudodementia" associated with her depression, although the patient says that even when she is in normal mood she is having a lot of trouble remembering things like doctor's appointments, scheduled activities. (3) Anxiety 11/18 -endorses symptoms of generalized anxiety and PTSD, but has a limited historian unable to make a definitive diagnosis. Start with getting records from the [facility] and , and start SSRI as above. Hydroxyzine as needed for sleep and anxiety. She would benefit from outpatient therapy. 11/23 -the patient reports that she has been less anxious recently, and attributes this possibly to her medications. (4) UTI (urinary tract infection) Complete 5 day course of Septra. 11/19 - Not sensitive to Septra. - Switch to Cipro 500 mg. q12 h X 7 days 11/20 - tolerating cipro. continue 7 day course 11/24 -now appears that the patient's nausea may be secondary to Cipro. She is aware that she is taking a seven-day course, and wants to complete the course of treatment with Cipro in order to treat her urinary tract infection. The patient reports that she is not having symptoms of UTI at this point, such as pain, burning, frequency, urgency, or urinary discoloration. 11/26 - Cipro d/c'd today as treatment course is finished. Will monitor for resolution of nausea, likely associated with this course of medication. (5) Type 2 diabetes mellitus without complications Continue home dose of metformin and lisinopril. 11/25 - Daily bedside glucose ordered to ensure diabetes is adequately managed. (6) Arthritis Continue home dose of Meloxicam, and f/u with PCP, Dr. Ivana Andersen in [place]. (7) Hypertension 11/28 - patient with HTN today, on lisinopril 20mg. Need to monitor lithium levels closely with this medication or especially if lisinopril is changed. - internal medicine consult placed for assistance in further treatment of BP (sees Kurt Saenz) spoke with Dr Mcgraw. would like to avoid diuretic type BP meds due to interactions with lithium levels if possible. Discharge / Aftercare Planning Primary Care Physician: Name: Shoaib Cruz PA-C, [facility] Date of Appointment: Dec 02, 2017 Time of Appointment: 2:45 pm Appointment Notes: [address] [place] [address], [place] [address] Psychiatrist: Name: [facility] - Dr. Lindsey Date of Appointment: Dec 03, 2017 Time of Appointment: 2:00 pm Appointment Notes: [address] [facility] [place] [address] Therapist: Name: [facility] Crystal Sr Date of Appointment: Dec 06, 2017 Time of Appointment: 11:00 am Appointment Notes: Appt with Blaine Sr - [address] [facility] [place] [address] Velvet Steamer: Name: None Other: Name of Appointment #1: [facility] Appointment #1 Notes: [address] [place] [address] [place] [address] Visit Code E&M Code: 89824 Inventory Assets Strengths: Willing for treatment, supportive friend, has providers recently Needs: Truthfulness in treatment, hospital social worker assistance with housing, supports, aftercare, criminal charges Risk Factors Assessment : Yes /single/: Yes Higher / Fall in social status: Yes Health problems: Yes Mental Health Diagnoses: Yes Substance use disorders: No Previous attempt: No Family history of suicide: No Previous psychiatric stay: Yes Hopelessness: Yes Smoker: No Protective Factors Assessment : No Responsible for young children: No Employed: No Stable relationships: No Supportive family: No Good rapport with provider: No Absence of risk factors above: No Data Vital Signs Last 24 Hrs: Date Time Temp Pulse Resp B/P (MAP) Pulse Ox O2 Delivery O2 Flow Rate FiO2 11/28/17 06:34 36.6 87 20 169/85 89 163/129 Meds Administered Last 24 Hrs: Meds Administered (Past 24Hrs) Medications (Trade) Dose Ordered Sig/Thi Route Start Time Stop Time Status Last Admin Dose Admin Fluoxetine HCl (Prozac Cap) 40 mg QAM PO 11/27/17 09:00 12/24/17 08:59 11/27/17 08:49 40 MG Lab Results Last 24 Hrs: Last 24 Hours Test 11/27/17 08:29 Bedside Glucose 150 mg/dl
[2017-11-28] MEDS: FLUTICASONE PROPIONATE NA SPR 16 GM BTL NAE SCH (08:35)
[2017-11-28] MEDS: MELOXICAM 7.5 MG TAB PO SCH (08:36)
[2017-11-28] MEDS: METFORMIN HCL 500 MG TAB PO SCH ×2 (08:36→17:26)
[2017-11-28] MEDS: LITHIUM CARBONATE SR 300 MG TAB (LITHOBID) PO SCH ×2 (08:36→21:14)
[2017-11-28] MEDS: FLUOXETINE HCL 10 MG CAP PO SCH (08:36)
[2017-11-28] MEDS: LISINOPRIL/HCTZ 20/12.5MG TAB PO SCH (08:36)
--- NOTE | 2017-11-28 12:00 | Medical Consult ---
Consultation Date of Consultation: Nov 28, 2017 . Attending Physician: Afia Perez MD . Reason for Consultation: elevated blood pressures . History of Present Illness 62 YO female followed by EVELYN Grigsby for her primary care. History of hypertension, DM type 2, dyslipidemia, and other problems. Blood pressure noted to be elevated this morning - 163/129 in sitting position. Recent BP's reviewed: Vital Signs Label Value Date Time Blood Pressure Assessment 126/84 11/23/17 0654 Source NIBP Position Sitting Blood Pressure Assessment 124/69 11/23/17 1434 Location Right Arm Source NIBP Position Sitting Blood Pressure Assessment 112/72 11/23/17 2201 Location Right Arm Source NIBP Position Sitting Blood Pressure Assessment 120/84 11/24/17 0650 Source NIBP Position Sitting Blood Pressure Assessment 123/77 11/24/17 1946 Location Left Arm Source NIBP Position Sitting Blood Pressure Assessment 123/77 11/24/17 2240 Location Left Arm Source NIBP Position Sitting Blood Pressure Assessment 150/82 11/25/17 0700 Source NIBP Position Sitting Blood Pressure Assessment 137/81 11/26/17 0651 Source NIBP Position Sitting Blood Pressure Assessment 144/85 11/27/17 0626 Source NIBP Position Sitting Blood Pressure Assessment 163/129 11/28/17 0634 Location Right Arm Source NIBP Position Sitting Repeat blood pressure at 12:26 with large adult cuff was 124/73. Patient indicates that she is under some stress related to her current hospitalization and anticipated move to a personal fci. No chest pain. No SOB. No dependent edema. Intermittent mild-moderate headaches. . Past Medical/Surgical History Chronic Medical Problems: (1) Dyslipidemia Status: Chronic (2) Hypertension Status: Chronic (3) Type 2 diabetes mellitus without complications Status: Chronic Surgical Problems: (1) Status post hysterectomy Status: Chronic (2) Status post tonsillectomy Status: Chronic . Family History MOTHER Rheumatoid arthritis GRANDMOTHER Rheumatoid arthritis FATHER Hypertension Social History Smoking Status: Former Smoker Alcohol Use: none Housing Status: lives with roommate Occupation Status: unemployed Allergies Coded Allergies: Codeine (Verified Allergy, Unknown, ., 11/17/17) Penicillins (Verified Allergy, Unknown, ., 11/17/17) Uncoded Allergies: METHIOLATE (Allergy, Unknown, 11/02/02) Home Medications Reported Home Medications Medications Dose Route/Sig Max Daily Dose Days Date Category Dose Instructions Effexor Xr (Venlafaxine Hcl) 75 Mg Cap 75 Mg PO DAILY 11/17/17 Reported Flonase Allergy Relief (Fluticasone Propionate (Nasal)) 50 Mcg/Act Spr 1 Inha CARLITOS UD 11/17/17 Reported Zestoretic 20MG/12.5MG (HCTZ/Lisinopril) Tab 1 Tab PO DAILY 11/17/17 Reported Glucophage (Metformin Hcl) 500 Mg Tab 1,000 Mg PO BID 11/17/17 Reported TWO 500 MG TABLETS TWICE DAILY Mobic (Meloxicam) 7.5 Mg Tab 7.5 Mg PO DAILY 11/17/17 Reported Current Inpatient Medications Current Inpatient Medications Medications (Trade) Dose Ordered Sig/Thi Route Start Time Stop Time Status Last Admin Dose Admin Acetaminophen (Tylenol Tab) 650 mg Q4H PRN PO 11/17/17 20:00 12/17/17 19:59 11/17/17 20:39 650 MG Al Hydroxide/Mg Hydroxide (Maalox Susp) 30 ml Q4H PRN PO 11/17/17 20:00 12/17/17 19:59 Bismuth Subsalicylate (Kaopectate Liqd) 15 ml DAILY PRN PO 11/17/17 20:00 12/17/17 19:59 Magnesium Hydroxide (Milk Of Magnesia Susp) 30 ml DAILY PRN PO 11/17/17 20:00 12/17/17 19:59 Sodium Chloride (M[place]ullen Nasal [place]) PRN PRN NA 11/17/17 20:00 12/17/17 19:59 Hydroxyzine HCl (Vistaril Tab) 50 mg HSZ PRN PO 11/17/17 20:00 12/17/17 19:59 11/28/17 00:21 50 MG Hydroxyzine HCl (Vistaril Tab) 25 mg Q4H PRN PO 11/17/17 20:00 12/17/17 19:59 Fluticasone Propionate (Flonase Nasal [place]) 2 sprays DAILY CARLITOS 11/18/17 09:00 12/18/17 08:59 11/28/17 08:35 2 SPRAYS HCTZ/Lisinopril (Prinzide 20-12.5MG Tab) 1 tab DAILY PO 11/18/17 09:00 12/18/17 08:59 11/28/17 08:36 1 TAB Meloxicam (Mobic Tab) 7.5 mg DAILY PO 11/18/17 09:00 12/18/17 08:59 11/28/17 08:36 7.5 MG Metformin HCl (Glucophage Tab) 1,000 mg BIDM PO 11/18/17 09:00 12/18/17 08:59 11/28/17 08:36 1,000 MG Ondansetron HCl (Zofran Tab) 8 mg Q8H PRN PO 11/22/17 10:00 12/22/17 09:59 11/25/17 08:54 8 MG Amenia Carbonate (Lithobid Tab) 300 mg BID PO 11/23/17 22:00 12/23/17 21:59 11/28/17 08:36 300 MG Fluoxetine HCl (Prozac Cap) 40 mg QAM PO 11/27/17 09:00 12/24/17 08:59 11/28/17 08:36 40 MG Review of Systems As noted above in HPI. . Physical Exam Date Time Temp Pulse Resp B/P (MAP) Pulse Ox O2 Delivery O2 Flow Rate FiO2 11/28/17 06:34 36.6 87 20 169/85 89 163/129 CONSTITUTIONAL vital signs as noted above adult female, obese, no acute distress EYES conjunctivae clear; lids normal pupils equal and reactive to light NECK no masses; trachea midline thyroid normal RESPIRATORY normal respiratory effort; no respiratory distress clear to percussion clear to auscultation CARDIOVASCULAR regular rate and rhythm II/ systolic murmur at base; no gallop appreciated carotid arteries 2/2 no pretibial edema GASTROINTESTINAL normal bowel sounds, soft, nontender; no palpable masses no hepatomegaly; no splenomegaly LYMPHATIC no cervical adenopathy MUSCULOSKELETAL no cyanosis; no digital clubbing no calf tenderness motor strength extremities grossly intact SKIN warm and dry NEUROLOGIC PERRL, EOMI, no facial palsy, no dysarthria, tongue midline PSYCHIATRIC oriented to person, place, time mood and affect appropriate . Laboratory Results Item Value Date Time Hemoglobin 14.5 g/dL 11/17/17 1150 White Blood Count 8.61 K/uL 11/17/17 1150 Platelet Count 215 K/uL 11/17/17 1150 Sodium Level 137 mmol/L 11/17/17 1150 Potassium Level 4.0 mmol/L 11/17/17 1150 Chloride Level 105 mmol/L 11/17/17 1150 Carbon Dioxide Level 25 mmol/L 11/17/17 1150 Blood Urea Nitrogen 12 mg/dl 11/17/17 1150 Creatinine 0.78 mg/dl 11/17/17 1150 Random Glucose 147 mg/dl H 11/17/17 1150 Bedside Glucose 147 mg/dl H 11/26/17 0816 Bedside Glucose 150 mg/dl H 11/27/17 0829 Bedside Glucose 140 mg/dl H 11/28/17 0829 Amenia Level 0.5 mMOL/L L 11/24/17 0649 Assessment & Plan HYPERTENSION Fluctuating blood pressures due to underlying emotional stress. Patient is overweight and BP's should be checked with large adult cuff to assure accurate readings. Need to be careful not to over-react to intermittent elevations and over-treat; best to assess situation and recheck BP. Patient is taking meloxicam for rheumatoid arthritis. NSAID's can elevate blood pressure and affect renal function, but seems like meloxicam should be continued in light of RA. Patient is currently taking lisinopril + HCTZ- both drugs can interact with lithium. Discussed with Psychiatry attending. Will change antihypertensive Rx to amlodipine 5 mg daily. BP's may fluctuate some during transition to new medication. Continue AHA diet. SYSTOLIC HEART MURMUR II/ systolic murmur at base. Echocardiogram at [facility] in 2015 did not show any significant valvular pathology. DM TYPE 2 Last Hgb A1C in clinic was 8.5 on 06/28/17. Fasting blood sugars past few days 147, 150, 140. Continue metformin. DYSLIPIDEMIA Continue atorvastatin. RHEUMATOID ARTHRITIS Continue meloxicam. Thank you for this consultation. We will follow the patient with you during their hospital stay. Dr. Lewis will be assuming medical management 11/29/17. You can reach a member of the [facility] Medicine Team 12/04 via pager @ [phone]. You can reach me via cell @ [phone]. .
[2017-11-28 12:26] VITALS: BP 124/73; PULSE 76
[2017-11-29 06:55] VITALS: BP_SYST 127; BP_SYST 130; BP_DIAS 83; BP_DIAS 84; PULSE 69; PULSE 72; TEMP 36.8
[2017-11-29] MEDS: FLUTICASONE PROPIONATE NA SPR 16 GM BTL NAE SCH (08:49)
[2017-11-29] MEDS: METFORMIN HCL 500 MG TAB PO SCH ×2 (08:50→17:12)
[2017-11-29] MEDS: LITHIUM CARBONATE SR 300 MG TAB (LITHOBID) PO SCH ×2 (08:50→21:34)
[2017-11-29] MEDS: MELOXICAM 7.5 MG TAB PO SCH (08:51)
[2017-11-29] MEDS: FLUOXETINE HCL 10 MG CAP PO SCH (08:52)
[2017-11-29] MEDS: AMLODIPINE BESYLATE 5 MG TAB PO SCH (08:52)
--- NOTE | 2017-11-29 10:56 | Medical Student: BHU Only ---
Psychiatric Progress Note Date of Service: Nov 29, 2017. MOCA Test was administered on 11/29/17. Patient received a 25/, missing 1 point for visuospatial/executive, 1 point for naming, 1 point for attention, 1 point for language, 0 points for abstraction, 1 point for delayed recall, and 0 points for orientation.
[2017-11-29] MEDS: ONDANSETRON 8 MG TAB PO PRN (11:12)
[2017-11-29] MEDS: ACETAMINOPHEN 325 MG TAB PO PRN (11:13)
--- NOTE | 2017-11-29 16:18 | Psychiatric Progress Notes ---
Progress Note Date of Service Nov 29, 2017. Interval History Maria M is a 62-year-old / white female who is currently homeless, reports a history of bipolar disorder but gives symptoms consistent with depression and anxiety and has most recently been on unopposed antidepressant treatment, has multiple medical problems and a very complex social history, who presents with worsening mood and suicidal ideation. Chief Complaint "Still not sleeping ". Subjective Patient was seen & assessed interval progress reviewed with Treatment Team. Staff report the patient remains depressed, reports poor sleep at night despite good sleep observed by staff, and has not yet contacted her friend who has all of her belongings. She is attending groups, and eating well. She had a family meeting today with her son and daughter. They reported concern about her and that she is "being pushed out" of the hospital prematurely. They said she will not be living at [facility], and will be staying with her daughter after discharge. They stated a plan to build her an efficiency apartment, and her daughter plans to manage her medication and finances. They are aware that she is not cleared to drive and support that. They were concerned that she was not physically or emotionally stable or discharge, stating she is not at baseline. She scored a 25/30 on the MOCA today, an improvement from her admission score of 15/30 on 11/18/17. On my assessment today, the patient states mood is improved slightly since admission, but she feels it is still too low, which she attributes to poor sleep. She would like to try mirtazapine, stating she had good response from it in the past and took it as needed. She states she tried trazodone, lorazepam, and zolpidem for insomnia, and all were ineffective. She denies suicidal thoughts, but feels unable to leave the hospital yet she does not feel well enough. She thinks she needs to stay here for another week. She was surprised that her daughter offered to allow her to stay with her and says that she has "mixed feelings" about it, but it would be better than assisted living. Sleep Information Total Hours of Sleep: 7.25 Meal Information Percent of Breakfast Consumed: 95 Percent of Lunch Consumed: 80 Percent of Dinner Consumed: 100 Mental Status Exam During interview pt is: alert and oriented, cooperative, other (groggy as she did not sleep well last evening) Appearance: appropriately dressed, disheveled, other (Appears tired) Eye contact is: fair Motor behavior is: steady gait & station, no abnormal motor movements, psychomotor retardation Speech: normal in rate, rhythm & volume Affect: depressed, constricted Mood is: other ("Better, but not as good as I should be") Thought process: goal directed, linear, logical Thought content: reality based without delusions Suicidal thought are: denied Homicidal thoughts are: denied Hallucinations: denies auditory, denies visual Cognition: other (mild impairment in all spheres - 25/30 on MOCA) Intelligence estimated to be: below average Insight: fair Judgement: fair Medication Trials Patient poor historian, medication trials largely unknown. States she has tried zolpidem, lorazepam, and trazodone for sleep, all of which were ineffective. Hydroxyzine has been ineffective for sleep here. [place] -stable on it for years. Depakote Impression Slow improvement continues, but remains depressed, and per family, far from baseline. Need to monitor sleep as days and nights are starting to get turned, staying in bed all morning, then not sleeping at night. The patient was accepted to [facility] and agreed to go, but today her son and daughter came in and stated she would not be going there and would be going to live with her daughter. Will continue to monitor mood on Prozac. Hospitalist contacted due to hypertension, and adjusted her antihypertensive medications. At this time, patient requires ongoing inpatient mental health treatment due to severity of depressive symptoms and risk of harm to self if discharged prematurely. Plan (1) Bipolar 1 disorder 11/18 - Pt poor historian, will need to get collateral information from daughter or friend she's been staying with. - Get records from [place] and [facility] in [place] to clarify diagnosis and past treatments. - Although patient reports a diagnosis of bipolar, she doesn't endorse symptoms c/w anton, and reports she was prescribed venlafaxine unopposed, which would not be consistent with a bipolar diagnosis either. Will treat an unipolar depression for now, and start fluoxetine 20mg, titrate as tolerated, while monitoring for activation/destabilization. Advised patient that her diagnosis is unclear and we need to get additional information, and warned of risk of activation of SSRI. - Q 15 min checks for safety. Participate in groups and programming, work on healthy coping skills and discharge safety plan. - Of note, the patient has 2 preliminary hearings in [facility], one on 2017 another on 12/09/2017. She claims no memory of being arrested, but will need to follow up to resolve these issues. - She will need outpatient services, including psychiatry, therapy, and case management. We will need to clarify what [place] she will be living in, and where she can receive services with her insurance. 11/19 - Continue Prozac 20 mg. daily - Daughter to visit this weekend. obtain supplemental information 11/20 - remains severely depressed and unable to CFS - tolerating prozac. will consider dose escalation tomorrow 11/21 - based on new information, will change primary mood d/o dx to BPAD I, MRE depressed - will start lithium ER 450mg po qhs. common risks and benefits reviewed and pt willing to resume mood stabilizer tx. EGFR and thyroid reviewed and ok. starting on low dose secondary to h/o possible toxicity and likely h/o med noncompliance. hopefully dispo will be favorable for longitudinal med oversight and allow for regular monitoring. - as she remains very depressed, will continue prozac unchanged for now but will defer any further titration. - will need Li level in 5 days 11/22 - Continue medications as above. Continue to evaluate nausea. [place] could be culprit, but I am hesitant to discontinue after one evening as she has tolerated [place] well in the past. Pt denies headache, tremor, dizziness, hot/ cold flashes, vision changes, or other abnormalities to suggest toxicity, especially considering dose of 450mg. She denies diarrhea, vomiting, or other circumstances to reflect acute changes in lithium level. - Continue Prozac as above to address depressive symptoms. 11/23 -the patient remains depressed in the context of her bipolar disorder. Today, I will increase her dose of Prozac from 20 mg daily to 30 mg daily. I advised the patient that the source of her nausea may actually be Prozac, rather than Eskalith, and I am encouraging to wait in anticipation of the resolution of the nausea. I will change her dose form of lithium from Eskalith 450 mg at bedtime to. Lithobid 300 mg twice daily. We will also obtain a lithium level in the morning. 11/24 -The patient's lithium level this morning was 0.5 mg. Because she is also taking hydrochlorothiazide for blood pressure, we will hold her dose of Lithobid at 300 mg 2 times daily and I recommend repeating the testing in the next week. Patient continues to have considerable nausea, circumstance that was initially attributed to Eskalith, but now appears to be more likely attributable to Cipro, given that she has reportedly tolerated SSRIs and lithium in the past without nausea. She tells me that she is less depressed, and her affect has become brighter. She is also more spontaneously verbal and slightly more animated. Patient denies suicidal thoughts. 11/25 - Continue medications as above: Lithobid 300mg BID and Prozac 30mg. Will need lithium level in the next few days considering dose change. 11/26 - Increase Prozac to 40mg qAM. Continue Lithobid 300mg BID. 11/28 would be 5 days after lithium dosage change, would consider getting lithium level. - Continue to encourage group participation 11/27 and 11/28 - Continue medications as above. Continue to monitor behavior on 40mg of Prozac; however, patient's affect remains depressed but slowly improving. - Cipro discontinued as course of ABX treatment completed. Reports improvement in nausea. If ongoing, consider consolidation of Lithobid to one dose at HS. - Will require lithium level 11/29/17 - Paperwork completed and needs returned to [facility] 11/29 - Daughter now states she will have patient live with her after discharge, and will manage her meds and finances. Family and patient agree she is not to drive. -Will need to be referred for new aftercare, as will now be living with her daughter. - Li level re-ordered for 12/04, as antihypertensive agent was changed which will affect level. Consolidate lithium to qhs. - Discontinue hydroxyzine qhs as ineffective, and start mirtazapine 7.5 mg nightly as needed, which patient reports was previously effective for sleep. (2) Cognitive dysfunction 11/18 - Get collateral from friends/family and OP records. Differential includes depression/anxiety effects on cognition, component of delirium, dementia. Discussed these different possibilities with the patient, and the need for ongoing monitoring. - Scored 15/30 on the MOCA, missing 2 for visuospatial/executive, 1 for naming, 2 for attention, 3 for language, 2 for abstraction, 3 for delayed recall, and 1 for orientation. - Patient has not been driving due to concerns about her cognition, and reinforced that she should not drive until she has been cleared by a physician. -She will need ongoing monitoring and management as an outpatient to determine the underlying cause of her cognitive issues, and should be reassessed once her depression and anxiety are under better control. There is a strong family history of dementia, and I suspect that she is experiencing mild dementia symptoms in addition to her severe mood and anxiety. 11/23 - Patient has some difficulty recalling details, such as her previous medications, but seems to have a fairly reasonable command of her own history. It is not clear to me if she may be in part having symptoms of a "pseudodementia " associated with her depression, although the patient says that even when she is in normal mood she is having a lot of trouble remembering things like doctor' s appointments, scheduled activities. 11/29 - Repeat MOCA . - Social work reviewed recs for no driving with family who agree. Patient also aware and in agreement. (3) Anxiety 11/18 -endorses symptoms of generalized anxiety and PTSD, but has a limited historian unable to make a definitive diagnosis. Start with getting records from the [facility] and [facility], and start SSRI as above. Hydroxyzine as needed for sleep and anxiety. She would benefit from outpatient therapy. 11/23 -the patient reports that she has been less anxious recently, and attributes this possibly to her medications. (4) UTI (urinary tract infection) Complete 5 day course of Septra. 11/19 - Not sensitive to Septra. - Switch to Cipro 500 mg. q12 h X 7 days 11/20 - tolerating cipro. continue 7 day course 11/24 -now appears that the patient's nausea may be secondary to Cipro. She is aware that she is taking a seven-day course, and wants to complete the course of treatment with Cipro in order to treat her urinary tract infection. The patient reports that she is not having symptoms of UTI at this point, such as pain, burning, frequency, urgency, or urinary discoloration. 11/26 - Cipro d/c'd today as treatment course is finished. Will monitor for resolution of nausea, likely associated with this course of medication. (5) Type 2 diabetes mellitus without complications Continue home dose of metformin and lisinopril. 11/25 - Daily bedside glucose ordered to ensure diabetes is adequately managed. (6) Arthritis Continue home dose of Meloxicam, and f/u with PCP, Dr. Ivana Andersen in [place]. (7) Hypertension 11/28 - patient with HTN today, on lisinopril 20mg. Need to monitor lithium levels closely with this medication or especially if lisinopril is changed. - internal medicine consult placed for assistance in further treatment of BP (sees Kurt Saenz) spoke with Dr Mcgraw. would like to avoid diuretic type BP meds due to interactions with lithium levels if possible. 11/29 - Appreciate hospitalist's recommendations, switched from HCTZ and lisinopril to amlodipine. BP in normal range today. Discharge / Aftercare Planning Primary Care Physician: Name: Shoaib Cruz PA-C, Kurt Munoz Date of Appointment: Dec 02, 2017 Time of Appointment: 2:45 pm Appointment Notes: [address] [place], [place] [address] [address] Psychiatrist: Name: [facility] - Psychiatrist to be assigned at intake Phone Number: Date of Appointment: Dec 07, 2017 Time of Appointment: 8:00 am Appointment Notes: [id number] [facility] [place] [id number] Therapist: Name: [facility] - Therapist to be assigned at intake Phone Number: Date of Appointment: Dec 07, 2017 Time of Appointment: 8:00 am Appointment Notes: [address] [facility] [place] [id number] Bleach Machine Operator: Name: None Other: Name of Appointment #1: [facility] Appointment #1 Notes: [address] [place] [address] [place] [id number] Visit Code E&M Code: 66051 Inventory Assets Strengths: Willing for treatment, supportive friend, has providers recently Needs: Truthfulness in treatment, manager social work assistance with housing, supports, aftercare, criminal charges Risk Factors Assessment : Yes /single/: Yes Higher / Fall in social status: Yes Health problems: Yes Mental Health Diagnoses: Yes Substance use disorders: No Previous attempt: No Family history of suicide: No Previous psychiatric stay: Yes Hopelessness: Yes Smoker: No Protective Factors Assessment : No Responsible for young children: No Employed: No Stable relationships: No Supportive family: No Good rapport with provider: No Absence of risk factors above: No Data Vital Signs Last 24 Hrs: Date Time Temp Pulse Resp B/P (MAP) Pulse Ox O2 Delivery O2 Flow Rate FiO2 11/29/17 06:55 36.8 69 16 130/83 72 127/84 Meds Administered Last 24 Hrs: Meds Administered (Past 24Hrs) Medications (Trade) Dose Ordered Sig/Thi Route Start Time Stop Time Status Last Admin Dose Admin Amlodipine Besylate (Norvasc Tab) 5 mg QAM PO 11/29/17 09:00 12/29/17 08:59 11/29/17 08:52 5 MG
--- NOTE | 2017-11-29 19:04 | Progress Note ---
Progress Note Date of Service Nov 29, 2017. Progress Note Computer rounds: Patient's vitals, med, lab work evaluated on computer Patient is not personally seen by me No charge will be done for this visit 62-year-old female with major depressive disorder, Admitted in the mental health unit, medicine service consulted for hypertension management HYPERTENSION: Blood pressure well controlled With change of antihypertensive to amlodipine 5 mg daily -Patient should continue with this regimen -Lisinopril/HCTZ both discontinued for drug interaction with lithium SYSTOLIC HEART MURMUR Echocardiogram at [facility] in 2015 did not show any significant valvular pathology. -No need to repeat echocardiogram DM TYPE 2 Last Hgb A1C in clinic was 8.5 on 06/28/17. Continue metformin. DYSLIPIDEMIA Continue atorvastatin. RHEUMATOID ARTHRITIS Continue meloxicam. Thank you for this consultation. Medicine will sign off Please call us with any questions or concerns during the hospital course Kerline Lewis MD
[2017-11-29] MEDS ORDERED: NURSING VERBAL MED ORDER ONE (21:30)
[2017-11-29] MEDS: MIRTAZAPINE TAB 15 MG TAB PO PRN (21:38)
[2017-11-30 06:56] VITALS: BP_SYST 127; BP_SYST 132; BP_DIAS 79; BP_DIAS 83; PULSE 66; PULSE 69; TEMP 36.9
[2017-11-30] MEDS: FLUTICASONE PROPIONATE NA SPR 16 GM BTL NAE SCH (08:44)
[2017-11-30] MEDS: AMLODIPINE BESYLATE 5 MG TAB PO SCH (08:45)
[2017-11-30] MEDS: METFORMIN HCL 500 MG TAB PO SCH ×2 (08:45→17:13)
[2017-11-30] MEDS: MELOXICAM 7.5 MG TAB PO SCH (08:45)
[2017-11-30] MEDS: FLUOXETINE HCL 10 MG CAP PO SCH (08:53)
[2017-11-30] MEDS: ONDANSETRON 8 MG TAB PO PRN (09:48)
--- NOTE | 2017-11-30 12:38 | Psychiatric Progress Notes ---
Progress Note Date of Service Nov 30, 2017. Interval History Maria M is a 62-year-old / white female who is currently homeless, reports a history of bipolar disorder but gives symptoms consistent with depression and anxiety and has most recently been on unopposed antidepressant treatment, has multiple medical problems and a very complex social history, who presents with worsening mood and suicidal ideation. Chief Complaint "I think the depression is a little better.". Subjective Patient was seen & assessed interval progress reviewed with Treatment Team. The patient remained in her bed most of the AM with nausea again. In review, she says that she was not nauseated prior to admission and makes a point to say it started after the cipro. By noon she was feeling well enough to get out of bed. Her depression is slowing improving in that she says it is less difficult for her to get out of bed in the mornings. We reviewed the family meeting yesterday, and she agrees that living with her daughter is likely the best situation, and having her to monitor finances and behaviors to prevent her from spending impulsively and recklessly. She is still having SI, saying that "things still look pretty gloomy", but very much wants to feel better and finds that the groups and the support of her peers has been very helpful. She denies HI, denies aud/vis hallucinations. Review of Systems Constitutional: + fatigue ENT: No hearing loss, No unusual epistaxis, No nasal symptoms, No sore throat, No tinnitus, No dental problems, No trouble swallowing, No problem reported Respiratory: No cough, No sputum, No wheezing, No shortness of breath, No dyspnea on exertion, No dyspnea at rest, No hemoptysis, No problem reported Cardiovascular: No chest pain, No orthopnea, No PND, No edema, No claudication , No palpitations, No problem reported Abdomen: + nausea Musculoskeletal: No joint pain, No muscle pain, No swelling, No calf pain, No problem reported Neurologic: No memory loss, No paralysis, No weakness, No numbness/tingling, No vertigo, No balance problems, No problem reported Psychiatric: + depression symptoms (with SI) Integumentary: No rash, No itch, No new/changing skin lesions, No color change , No bleeding, No problem reported Sleep Information Total Hours of Sleep: 7.75 Meal Information Percent of Breakfast Consumed: 80 Percent of Lunch Consumed: 80 Percent of Dinner Consumed: 100 Mental Status Exam During interview pt is: alert and oriented, cooperative Appearance: appropriately dressed, disheveled, other (Appears tired) Eye contact is: fair Motor behavior is: steady gait & station, no abnormal motor movements, psychomotor retardation Speech: normal in rate, rhythm & volume Affect: mood congruent, depressed, flat Mood is: depressed Thought process: goal directed, linear, logical Thought content: reality based without delusions Suicidal thought are: denied Homicidal thoughts are: denied Hallucinations: denies auditory, denies visual Cognition: other (mild impairment in all spheres - 25/30 on MOCA) Intelligence estimated to be: average Insight: fair Judgement: fair Medication Trials Patient poor historian, medication trials largely unknown. States she has tried zolpidem, lorazepam, and trazodone for sleep, all of which were ineffective. Hydroxyzine has been ineffective for sleep here. Wilsall -stable on it for years. Depakote Impression Slow improvement continues, but remains depressed with SI. Nausea is interfering with her AM activities. last dose of Cipro was on Wednesday. If nausea doesn't kal will need to look at other factors such as her SSRI, ongoing UTI, need for PPI? Li converted to lithobid and all HS to reduce nausea. Not yet able to function outside of a structured environment. Plan (1) Bipolar 1 disorder 11/18 - Pt poor historian, will need to get collateral information from daughter or friend she's been staying with. - Get records from [place] and [facility] in [place] to clarify diagnosis and past treatments. - Although patient reports a diagnosis of bipolar, she doesn't endorse symptoms c/w anton, and reports she was prescribed venlafaxine unopposed, which would not be consistent with a bipolar diagnosis either. Will treat an unipolar depression for now, and start fluoxetine 20mg, titrate as tolerated, while monitoring for activation/destabilization. Advised patient that her diagnosis is unclear and we need to get additional information, and warned of risk of activation of SSRI. - Q 15 min checks for safety. Participate in groups and programming, work on healthy coping skills and discharge safety plan. - Of note, the patient has 2 preliminary hearings in [facility] one on 2017 another on 12/09/2017. She claims no memory of being arrested, but will need to follow up to resolve these issues. - She will need outpatient services, including psychiatry, therapy, and case management. We will need to clarify what County she will be living in, and where she can receive services with her insurance. 11/19 - Continue Prozac 20 mg. daily - Daughter to visit this weekend. obtain supplemental information 11/20 - remains severely depressed and unable to CFS - tolerating prozac. will consider dose escalation tomorrow 11/21 - based on new information, will change primary mood d/o dx to BPAD I, MRE depressed - will start lithium ER 450mg po qhs. common risks and benefits reviewed and pt willing to resume mood stabilizer tx. EGFR and thyroid reviewed and ok. starting on low dose secondary to h/o possible toxicity and likely h/o med noncompliance. hopefully dispo will be favorable for longitudinal med oversight and allow for regular monitoring. - as she remains very depressed, will continue prozac unchanged for now but will defer any further titration. - will need Li level in 5 days 11/22 - Continue medications as above. Continue to evaluate nausea. Wilsall could be culprit, but I am hesitant to discontinue after one evening as she has tolerated Wilsall well in the past. Pt denies headache, tremor, dizziness, hot/ cold flashes, vision changes, or other abnormalities to suggest toxicity, especially considering dose of 450mg. She denies diarrhea, vomiting, or other circumstances to reflect acute changes in lithium level. - Continue Prozac as above to address depressive symptoms. 11/23 -the patient remains depressed in the context of her bipolar disorder. Today, I will increase her dose of Prozac from 20 mg daily to 30 mg daily. I advised the patient that the source of her nausea may actually be Prozac, rather than Eskalith, and I am encouraging to wait in anticipation of the resolution of the nausea. I will change her dose form of lithium from Eskalith 450 mg at bedtime to. Lithobid 300 mg twice daily. We will also obtain a lithium level in the morning. 11/24 -The patient's lithium level this morning was 0.5 mg. Because she is also taking hydrochlorothiazide for blood pressure, we will hold her dose of Lithobid at 300 mg 2 times daily and I recommend repeating the testing in the next week. Patient continues to have considerable nausea, circumstance that was initially attributed to Eskalith, but now appears to be more likely attributable to Cipro, given that she has reportedly tolerated SSRIs and lithium in the past without nausea. She tells me that she is less depressed, and her affect has become brighter. She is also more spontaneously verbal and slightly more animated. Patient denies suicidal thoughts. 11/25 - Continue medications as above: Lithobid 300mg BID and Prozac 30mg. Will need lithium level in the next few days considering dose change. 11/26 - Increase Prozac to 40mg qAM. Continue Lithobid 300mg BID. 11/28 would be 5 days after lithium dosage change, would consider getting lithium level. - Continue to encourage group participation 11/27 and 11/28 - Continue medications as above. Continue to monitor behavior on 40mg of Prozac; however, patient's affect remains depressed but slowly improving. - Cipro discontinued as course of ABX treatment completed. Reports improvement in nausea. If ongoing, consider consolidation of Lithobid to one dose at HS. - Will require lithium level 11/29/17 - Paperwork completed and needs returned to [facility]'s 11/29 - Daughter now states she will have patient live with her after discharge, and will manage her meds and finances. Family and patient agree she is not to drive. -Will need to be referred for new aftercare, as will now be living with her daughter. - Li level re-ordered for 12/04, as antihypertensive agent was changed which will affect level. Consolidate lithium to qhs. - Discontinue hydroxyzine qhs as ineffective, and start mirtazapine 7.5 mg nightly as needed, which patient reports was previously effective for sleep. 11/30 - Continue current med - If nausea persists, consider other sources such as the lithiu, SSRI or need for PPI (2) Cognitive dysfunction 11/18 - Get collateral from friends/family and OP records. Differential includes depression/anxiety effects on cognition, component of delirium, dementia. Discussed these different possibilities with the patient, and the need for ongoing monitoring. - Scored 15/30 on the MOCA, missing 2 for visuospatial/executive, 1 for naming, 2 for attention, 3 for language, 2 for abstraction, 3 for delayed recall, and 1 for orientation. - Patient has not been driving due to concerns about her cognition, and reinforced that she should not drive until she has been cleared by a physician. -She will need ongoing monitoring and management as an outpatient to determine the underlying cause of her cognitive issues, and should be reassessed once her depression and anxiety are under better control. There is a strong family history of dementia, and I suspect that she is experiencing mild dementia symptoms in addition to her severe mood and anxiety. 11/23 - Patient has some difficulty recalling details, such as her previous medications, but seems to have a fairly reasonable command of her own history. It is not clear to me if she may be in part having symptoms of a "pseudodementia " associated with her depression, although the patient says that even when she is in normal mood she is having a lot of trouble remembering things like doctor' s appointments, scheduled activities. 11/29 - Repeat MOCA . - Social work reviewed recs for no driving with family who agree. Patient also aware and in agreement. (3) Anxiety 11/18 -endorses symptoms of generalized anxiety and PTSD, but has a limited historian unable to make a definitive diagnosis. Start with getting [place] [facility] [facility], and start SSRI as above. Hydroxyzine as needed for sleep and anxiety. She would benefit from outpatient therapy. 11/23 -the patient reports that she has been less anxious recently, and attributes this possibly to her medications. (4) UTI (urinary tract infection) Complete 5 day course of Septra. 11/19 - Not sensitive to Septra. - Switch to Cipro 500 mg. q12 h X 7 days 11/20 - tolerating cipro. continue 7 day course 11/24 -now appears that the patient's nausea may be secondary to Cipro. She is aware that she is taking a seven-day course, and wants to complete the course of treatment with Cipro in order to treat her urinary tract infection. The patient reports that she is not having symptoms of UTI at this point, such as pain, burning, frequency, urgency, or urinary discoloration. 11/26 - Cipro d/c'd today as treatment course is finished. Will monitor for resolution of nausea, likely associated with this course of medication. (5) Type 2 diabetes mellitus without complications Continue home dose of metformin and lisinopril. 11/25 - Daily bedside glucose ordered to ensure diabetes is adequately managed. (6) Arthritis Continue home dose of Meloxicam, and f/u with PCP, Dr. Ivana Andersen in [place]. (7) Hypertension 11/28 - patient with HTN today, on lisinopril 20mg. Need to monitor lithium levels closely with this medication or especially if lisinopril is changed. - internal medicine consult placed for assistance in further treatment of BP (sees Kurt Saenz) spoke with Dr Mcgraw. would like to avoid diuretic type BP meds due to interactions with lithium levels if possible. 11/29 - Appreciate hospitalist's recommendations, switched from HCTZ and lisinopril to amlodipine. BP in normal range today. Discharge / Aftercare Planning Primary Care Physician: Name: Shoaib Cruz PA-C, Kurt Munoz Date of Appointment: Dec 02, 2017 Time of Appointment: 2:45 pm Appointment Notes: [address] [place], [place] [address] [address] Psychiatrist: Name: [facility] - Psychiatrist to be assigned at intake Phone Number: Date of Appointment: Dec 07, 2017 Time of Appointment: 8:00 am Appointment Notes: [id number] [facility] [place] [id number] Therapist: Name: [facility] - Therapist to be assigned at intake Phone Number: Date of Appointment: Dec 07, 2017 Time of Appointment: 8:00 am Appointment Notes: [id number] [facility] [place] [id number] Retail Area Manager: Name: None Other: Name of Appointment #1: [facility] Appointment #1 Notes: [address] [place] [address] [place] [address] Visit Code E&M Code: 61033 Inventory Assets Strengths: Willing for treatment, supportive friend, has providers recently Needs: Truthfulness in treatment, social worker clinical assistance with housing, supports, aftercare, criminal charges Risk Factors Assessment : Yes /single/: Yes Higher / Fall in social status: Yes Health problems: Yes Mental Health Diagnoses: Yes Substance use disorders: No Previous attempt: No Family history of suicide: No Previous psychiatric stay: Yes Hopelessness: Yes Smoker: No Protective Factors Assessment : No Responsible for young children: No Employed: No Stable relationships: No Supportive family: No Good rapport with provider: No Absence of risk factors above: No Data Vital Signs Last 24 Hrs: Date Time Temp Pulse Resp B/P (MAP) Pulse Ox O2 Delivery O2 Flow Rate FiO2 11/30/17 06:56 36.9 66 16 127/83 69 132/79 Meds Administered Last 24 Hrs: Meds Administered (Past 24Hrs) Medications (Trade) Dose Ordered Sig/Thi Route Start Time Stop Time Status Last Admin Dose Admin Amlodipine Besylate (Norvasc Tab) 5 mg QAM PO 11/29/17 09:00 12/29/17 08:59 11/30/17 08:45 5 MG Mirtazapine (Remeron Tab) 7.5 mg HS PRN PO 11/29/17 16:15 12/29/17 16:14 11/29/17 21:38 7.5 MG Lab Results Last 24 Hrs: Last 24 Hours Test 11/30/17 08:51 Bedside Glucose 138 mg/dl
[2017-11-30] MEDS ORDERED: POLYETHYLENE (MIRALAX) 17 GM PACK PO ONE (14:15)
[2017-11-30] MEDS: LITHIUM CARBONATE SR 300 MG TAB (LITHOBID) PO SCH (21:18)
[2017-11-30] MEDS: MIRTAZAPINE TAB 15 MG TAB PO PRN (21:21)
[2017-12-01 06:47] VITALS: BP_SYST 123; BP_DIAS 73; BP_DIAS 80; PULSE 71; PULSE 72; TEMP 36.9
[2017-12-01] MEDS: FLUTICASONE PROPIONATE NA SPR 16 GM BTL NAE SCH (08:50)
[2017-12-01] MEDS: METFORMIN HCL 500 MG TAB PO SCH ×2 (08:56→18:02)
[2017-12-01] MEDS: MELOXICAM 7.5 MG TAB PO SCH (08:57)
[2017-12-01] MEDS: AMLODIPINE BESYLATE 5 MG TAB PO SCH (08:57)
[2017-12-01] MEDS: FLUOXETINE HCL 10 MG CAP PO SCH (08:58)
[2017-12-01] MEDS ORDERED: BuPROPion SR 100 MG TABCR PO ONE (10:37)
[2017-12-01] MEDS ORDERED: DOCUSATE SODIUM 100 MG CAP PO ONE (10:37)
[2017-12-01] MEDS ORDERED: POLYETHYLENE (MIRALAX) 17 GM PACK PO PRN (10:45)
--- NOTE | 2017-12-01 10:49 | Psychiatric Progress Notes ---
Progress Note Date of Service Dec 01, 2017. Interval History Maria M is a 62-year-old / white female who is currently homeless, reports a history of bipolar disorder but gives symptoms consistent with depression and anxiety and has most recently been on unopposed antidepressant treatment, has multiple medical problems and a very complex social history, who presents with worsening mood and suicidal ideation. Chief Complaint "I woke up with a headache ". Subjective Patient was seen & assessed interval progress reviewed with Treatment Team. Staff report patient requested and received ondansetron for nausea yesterday morning, which was helpful. She remained in bed and refused to groups yesterday morning due to the nausea, but was out of her room in the afternoon watching TV. She attended afternoon groups, but participated only when asked direct questions. She received her first dose of mirtazapine 7.5 mg last night , and per staff report slept well (7.75 hours). Social work contacted multiple outpatient offices to arrange aftercare, as she is now going to be living with her daughter which is in a different location than her previous aftercare plan. On my assessment today, the patient states that she slept better last night, but still woke up a couple of times. She notes she woke up with a headache this morning, and is not feeling well, which is negatively affecting her mood. She denies nausea since yesterday morning, but reports constipation, with one small hard bowel movement yesterday after receiving prune juice, magnesium hydroxide, and MiraLAX. She ate all of her breakfast this morning, and is agreeable to taking a stool softener and trying MiraLAX again. Mood is "not real good," rates it a 3 out of 10, exacerbated by feeling poorly physically with headache and constipation. She denies suicidal thoughts, but endorses hopelessness. She continues to feel unsafe outside the hospital, and does not feel ready to leave. Sleep Information Total Hours of Sleep: 7.75 Meal Information Percent of Breakfast Consumed: 100 Percent of Lunch Consumed: 100 Percent of Dinner Consumed: 75 Mental Status Exam During interview pt is: alert and oriented, cooperative Appearance: appropriately dressed, disheveled, other (Appears tired) Eye contact is: fair Motor behavior is: steady gait & station, psychomotor retardation Speech: other (Minimal speech, monotone) Affect: mood congruent, depressed Mood is: depressed ("Not real good") Thought process: goal directed, linear, logical Thought content: reality based without delusions, hopelessness Suicidal thought are: denied Homicidal thoughts are: denied Hallucinations: denies auditory, denies visual Cognition: other (mild impairment in all spheres - 25/30 on MOCA) Intelligence estimated to be: average Insight: fair Judgement: fair Medication Trials Patient poor historian, medication trials largely unknown. States she has tried zolpidem, lorazepam, and trazodone for sleep, all of which were ineffective. Hydroxyzine has been ineffective for sleep here. Susank -stable on it for years. Depakote. Fluoxetine -brief trial during this hospitalization up to 40 mg daily, switching to bupropion due to limited response and question of constipation. Impression Slow improvement continues, but remains depressed with SI. Nausea is interfering with her AM activities. last dose of Cipro was on Wednesday. If nausea doesn't kal will need to look at other factors such as her SSRI, ongoing UTI, need for PPI? Li converted to lithobid and all HS to reduce nausea. Not yet able to function outside of a structured environment. Plan (1) Bipolar 1 disorder 11/18 - Pt poor historian, will need to get collateral information from daughter or friend she's been staying with. - Get records from [place] and [facility] in [place] to clarify diagnosis and past treatments. - Although patient reports a diagnosis of bipolar, she doesn't endorse symptoms c/w anton, and reports she was prescribed venlafaxine unopposed, which would not be consistent with a bipolar diagnosis either. Will treat an unipolar depression for now, and start fluoxetine 20mg, titrate as tolerated, while monitoring for activation/destabilization. Advised patient that her diagnosis is unclear and we need to get additional information, and warned of risk of activation of SSRI. - Q 15 min checks for safety. Participate in groups and programming, work on healthy coping skills and discharge safety plan. - Of note, the patient has 2 preliminary hearings in [facility], one on 2017 another on 12/09/2017. She claims no memory of being arrested, but will need to follow up to resolve these issues. - She will need outpatient services, including psychiatry, therapy, and case management. We will need to clarify what County she will be living in, and where she can receive services with her insurance. 3/2 - Continue Prozac 20 mg. daily - Daughter to visit this weekend. obtain supplemental information 11/20 - remains severely depressed and unable to CFS - tolerating prozac. will consider dose escalation tomorrow 11/21 - based on new information, will change primary mood d/o dx to BPAD I, MRE depressed - will start lithium ER 450mg po qhs. common risks and benefits reviewed and pt willing to resume mood stabilizer tx. EGFR and thyroid reviewed and ok. starting on low dose secondary to h/o possible toxicity and likely h/o med noncompliance. hopefully dispo will be favorable for longitudinal med oversight and allow for regular monitoring. - as she remains very depressed, will continue prozac unchanged for now but will defer any further titration. - will need Li level in 5 days 11/22 - Continue medications as above. Continue to evaluate nausea. Susank could be culprit, but I am hesitant to discontinue after one evening as she has tolerated Susank well in the past. Pt denies headache, tremor, dizziness, hot/ cold flashes, vision changes, or other abnormalities to suggest toxicity, especially considering dose of 450mg. She denies diarrhea, vomiting, or other circumstances to reflect acute changes in lithium level. - Continue Prozac as above to address depressive symptoms. 11/23 -the patient remains depressed in the context of her bipolar disorder. Today, I will increase her dose of Prozac from 20 mg daily to 30 mg daily. I advised the patient that the source of her nausea may actually be Prozac, rather than Eskalith, and I am encouraging to wait in anticipation of the resolution of the nausea. I will change her dose form of lithium from Eskalith 450 mg at bedtime to. Lithobid 300 mg twice daily. We will also obtain a lithium level in the morning. 11/24 -The patient's lithium level this morning was 0.5 mg. Because she is also taking hydrochlorothiazide for blood pressure, we will hold her dose of Lithobid at 300 mg 2 times daily and I recommend repeating the testing in the next week. Patient continues to have considerable nausea, circumstance that was initially attributed to Eskalith, but now appears to be more likely attributable to Cipro, given that she has reportedly tolerated SSRIs and lithium in the past without nausea. She tells me that she is less depressed, and her affect has become brighter. She is also more spontaneously verbal and slightly more animated. Patient denies suicidal thoughts. 11/25 - Continue medications as above: Lithobid 300mg BID and Prozac 30mg. Will need lithium level in the next few days considering dose change. 11/26 - Increase Prozac to 40mg qAM. Continue Lithobid 300mg BID. 11/28 would be 5 days after lithium dosage change, would consider getting lithium level. - Continue to encourage group participation 11/27 and 11/28 - Continue medications as above. Continue to monitor behavior on 40mg of Prozac; however, patient's affect remains depressed but slowly improving. - Cipro discontinued as course of ABX treatment completed. Reports improvement in nausea. If ongoing, consider consolidation of Lithobid to one dose at HS. - Will require lithium level 11/29/17 - Paperwork completed and needs returned to [facility]'s 11/29 - Daughter now states she will have patient live with her after discharge, and will manage her meds and finances. Family and patient agree she is not to drive. - Will need to be referred for new aftercare, as will now be living with her daughter. - Li level re-ordered for 12/04, as antihypertensive agent was changed which will affect level. Consolidate lithium to qhs. - Discontinue hydroxyzine qhs as ineffective, and start mirtazapine 7.5 mg nightly as needed, which patient reports was previously effective for sleep. 11/30 - Continue current med - If nausea persists, consider other sources such as the lithium, SSRI or need for PPI. 12/01 -Discussed option of a trial of bupropion SR, which the patient agrees to after review of risks, benefits, and side effects. She has had limited response to fluoxetine, and it may be contributing to nausea. Discontinue fluoxetine and start bupropion SR 100 mg twice daily. Monitor for increased anxiety. -Continue lithium 600 mg nightly, with repeat level scheduled on 12/04/2017. -Continue to encourage the patient to be out of bed during the day and attending all groups. (2) Cognitive dysfunction 11/18 - Get collateral from friends/family and OP records. Differential includes depression/anxiety effects on cognition, component of delirium, dementia. Discussed these different possibilities with the patient, and the need for ongoing monitoring. - Scored 15/30 on the MOCA, missing 2 for visuospatial/executive, 1 for naming, 2 for attention, 3 for language, 2 for abstraction, 3 for delayed recall, and 1 for orientation. - Patient has not been driving due to concerns about her cognition, and reinforced that she should not drive until she has been cleared by a physician. -She will need ongoing monitoring and management as an outpatient to determine the underlying cause of her cognitive issues, and should be reassessed once her depression and anxiety are under better control. There is a strong family history of dementia, and I suspect that she is experiencing mild dementia symptoms in addition to her severe mood and anxiety. 11/23 - Patient has some difficulty recalling details, such as her previous medications, but seems to have a fairly reasonable command of her own history. It is not clear to me if she may be in part having symptoms of a "pseudodementia " associated with her depression, although the patient says that even when she is in normal mood she is having a lot of trouble remembering things like doctor' s appointments, scheduled activities. 11/29 - Repeat MOCA 25/30. - Social work reviewed recs for no driving with family who agree. Patient also aware and in agreement. (3) Anxiety 11/18 -endorses symptoms of generalized anxiety and PTSD, but has a limited historian unable to make a definitive diagnosis. Start with getting records from the [facility], and start SSRI as above. Hydroxyzine as needed for sleep and anxiety. She would benefit from outpatient therapy. 11/23 -the patient reports that she has been less anxious recently, and attributes this possibly to her medications. (4) UTI (urinary tract infection) Complete 5 day course of Septra. 11/19 - Not sensitive to Septra. - Switch to Cipro 500 mg. q12 h X 7 days 11/20 - tolerating cipro. continue 7 day course 11/24 -now appears that the patient's nausea may be secondary to Cipro. She is aware that she is taking a seven-day course, and wants to complete the course of treatment with Cipro in order to treat her urinary tract infection. The patient reports that she is not having symptoms of UTI at this point, such as pain, burning, frequency, urgency, or urinary discoloration. 11/26 - Cipro d/c'd today as treatment course is finished. Will monitor for resolution of nausea, likely associated with this course of medication. (5) Type 2 diabetes mellitus without complications Continue home dose of metformin and lisinopril. 11/25 - Daily bedside glucose ordered to ensure diabetes is adequately managed. (6) Arthritis Continue home dose of Meloxicam, and f/u with PCP, Dr. Ivana Andersen in [place]. (7) Hypertension 11/28 - patient with HTN today, on lisinopril 20mg. Need to monitor lithium levels closely with this medication or especially if lisinopril is changed. - internal medicine consult placed for assistance in further treatment of BP (sees Kurt Saenz) spoke with Dr Mcgraw. would like to avoid diuretic type BP meds due to interactions with lithium levels if possible. 11/29 - Appreciate hospitalist's recommendations, switched from HCTZ and lisinopril to amlodipine. BP in normal range today. Nausea - 12/01 - ondansetron as needed, antibiotic discontinued 11/25/2017, and fluoxetine discontinued 12/01/2017. Treat constipation, as this may be contributing, and continue to monitor. Consider a trial of a PPI to target GERD. Constipation - 12/01 -continue with prune juice, gentle exercise, magnesium hydroxide as needed , and add MiraLAX up to once daily as needed. Encourage her to drink water, and notify staff of progress. Discharge / Aftercare Planning Primary Care Physician: Name: Shoaib Cruz PA-C, [facility] Date of Appointment: Dec 02, 2017 Time of Appointment: 2:45 pm Appointment Notes: [address] [place], [place] [address] [address] Psychiatrist: Name: Tawana LOW intake Date of Appointment: Dec 09, 2017 Time of Appointment: 10:45 Appointment Notes: [address] [facility] [place] [id number] Therapist: Name: Tawana Randall Date of Appointment: Dec 07, 2017 Time of Appointment: 8:00 am Appointment Notes: [address] [facility] [place] [employer] Specialist: Name: None Other: Name of Appointment #1: [facility] Long Term Appointment #1 Notes: [address] [facility] [place] [address] Visit Code E&M Code: 79556 Inventory Assets Strengths: Willing for treatment, supportive friend, has providers recently Needs: Truthfulness in treatment, social media developer assistance with housing, supports, aftercare, criminal charges Risk Factors Assessment : Yes /single/: Yes Higher / Fall in social status: Yes Health problems: Yes Mental Health Diagnoses: Yes Substance use disorders: No Previous attempt: No Family history of suicide: No Previous psychiatric stay: Yes Hopelessness: Yes Smoker: No Protective Factors Assessment : No Responsible for young children: No Employed: No Stable relationships: No Supportive family: No Good rapport with provider: No Absence of risk factors above: No Data Vital Signs Last 24 Hrs: Date Time Temp Pulse Resp B/P (MAP) Pulse Ox O2 Delivery O2 Flow Rate FiO2 12/01/17 06:47 36.9 71 16 123/80 72 123/73 Meds Administered Last 24 Hrs: Meds Administered (Past 24Hrs) Medications (Trade) Dose Ordered Sig/Thi Route Start Time Stop Time Status Last Admin Dose Admin Susank Carbonate (Lithobid Tab) 600 mg HS PO 11/29/17 22:00 12/29/17 21:59 Future hold 11/30/17 21:18 600 MG Mirtazapine (Remeron Tab) 7.5 mg HS PRN PO 11/29/17 16:15 12/29/17 16:14 11/30/17 21:21 7.5 MG Polyethylene (Miralax Powder Packet) 17 gm ONE ONCE PO 11/30/17 14:15 11/30/17 14:16 DC 11/30/17 14:24 17 GM Lab Results Last 24 Hrs: Last 24 Hours Test 12/01/17 08:55 Bedside Glucose 126 mg/dl
[2017-12-01] MEDS: BuPROPion SR 100 MG TABCR PO SCH (14:06)
[2017-12-01] MEDS: LITHIUM CARBONATE SR 300 MG TAB (LITHOBID) PO SCH (22:01)
[2017-12-01] MEDS: DOCUSATE SODIUM 100 MG CAP PO SCH (22:01)
[2017-12-01] MEDS: MIRTAZAPINE TAB 15 MG TAB PO PRN (22:37)
[2017-12-02 06:42] VITALS: BP_SYST 126; BP_DIAS 75; BP_DIAS 79; PULSE 75; PULSE 77; TEMP 36.8
[2017-12-02] MEDS: DOCUSATE SODIUM 100 MG CAP PO SCH ×2 (08:50→22:27)
[2017-12-02] MEDS: FLUTICASONE PROPIONATE NA SPR 16 GM BTL NAE SCH (08:50)
[2017-12-02] MEDS: AMLODIPINE BESYLATE 5 MG TAB PO SCH (08:51)
[2017-12-02] MEDS: MELOXICAM 7.5 MG TAB PO SCH (08:51)
[2017-12-02] MEDS: BuPROPion SR 100 MG TABCR PO SCH ×2 (08:51→13:27)
[2017-12-02] MEDS: METFORMIN HCL 500 MG TAB PO SCH ×2 (08:51→17:29)
--- NOTE | 2017-12-02 10:06 | Psychiatric Progress Notes ---
Progress Note Date of Service Dec 02, 2017. Interval History Maria M is a 62-year-old / white female who is currently homeless, reports a history of bipolar disorder but gives symptoms consistent with depression and anxiety and has most recently been on unopposed antidepressant treatment, has multiple medical problems and a very complex social history, who presents with worsening mood and suicidal ideation. Chief Complaint "I feel a bit better in that I slept last night". Subjective Patient was seen & assessed interval progress reviewed with Nursing. Nursing reports the patient slept for 7 hours last evening with 7.5mg of Remeron. Staff reports the patient experienced constipation last evening resulting in need for several prns and eventually manual disimpaction by the patient. Can order UA today to evaluate for resolution of UTI. Pt was seen today to assess progress since admission. Pt states she slept well last evening and is feeling much better after having a good rest. She denies much improvement in her mood, but remains optimistic that recent medication changes will be helpful. Pt denies side effects from Remeron or Wellbutrin. Pt states, "I still don't feel like myself yet" when questioned about her current mood. Pt states she has been attending groups regularly and has found it helpful to learn about coping skills. She states she has been using them periodically on the unit to help with her mood. Pt reports current mood a 3/10 (10=best) and rates her current anxiety a 4/10 (10=worst). Pt reports constipation yesterday, but states it was prior to any medication changes. Discussed with her repeating her UA today to determine effectiveness of antibiotic course. Pt denies SI/HI, A/V hallucinations, and other psychosis. She denies other needs or concerns today. Review of Systems Psych: denies symptoms other than stated above Constitutional: denied Cardiovascular: denied GI: reports cramping she feels is related to needing a bowel movement Neurologic: denied Remainder of 10 body systems also reviewed and denied other than noted above. Sleep Information Total Hours of Sleep: 7.00 Meal Information Percent of Breakfast Consumed: 80 Percent of Lunch Consumed: 100 Percent of Dinner Consumed: 100 Mental Status Exam During interview pt is: alert and oriented, cooperative Appearance: appropriately dressed, disheveled (t-shirt and sweatpants), other Eye contact is: fair Motor behavior is: steady gait & station, no abnormal motor movements, psychomotor retardation Speech: other (slow and minimal) Affect: mood congruent, depressed, flat Mood is: depressed ("I dont' feel like myself yet") Thought process: goal directed, linear, logical Thought content: reality based without delusions, hopelessness Suicidal thought are: denied Homicidal thoughts are: denied Hallucinations: denies auditory, denies visual Cognition: other (mild impairment in all spheres - 25/30 on MOCA) Intelligence estimated to be: average Insight: fair Judgement: fair Medication Trials Patient poor historian, medication trials largely unknown. States she has tried zolpidem, lorazepam, and trazodone for sleep, all of which were ineffective. Hydroxyzine has been ineffective for sleep here. [place] -stable on it for years. Depakote. Fluoxetine -brief trial during this hospitalization up to 40 mg daily, switching to bupropion due to limited response and question of constipation. Impression Pt reports she is tolerating medication changes, although she denies improvement just yet. Pt received two doses of Wellbutrin starting last evening and we discussed her monitoring her mood to see if she is noticing a difference. Pt does report improvement in sleep last evening with Remeron 7.5mg. She denies nausea today, but does have cramping from need for bowel movement. Will continue lithobid 600mg qHS. Pt is showing slow improvement, but concern remains about her ability to function if she were to return home. Pt remains depressed, flat, and hopeless which puts her at risk of harm to self if not adequately address prior to discharge. At this time, patient requires ongoing inpatient treatment until medications can be titrated and sustained improvement in mood can be observed. Plan (1) Bipolar 1 disorder 11/18 - Pt poor historian, will need to get collateral information from daughter or friend she's been staying with. - Get records from [facility] and [facility] in [place] to clarify diagnosis and past treatments. - Although patient reports a diagnosis of bipolar, she doesn't endorse symptoms c/w anton, and reports she was prescribed venlafaxine unopposed, which would not be consistent with a bipolar diagnosis either. Will treat an unipolar depression for now, and start fluoxetine 20mg, titrate as tolerated, while monitoring for activation/destabilization. Advised patient that her diagnosis is unclear and we need to get additional information, and warned of risk of activation of SSRI. - Q 15 min checks for safety. Participate in groups and programming, work on healthy coping skills and discharge safety plan. - Of note, the patient has 2 preliminary hearings in [facility], one on 2017 another on 12/09/2017. She claims no memory of being arrested, but will need to follow up to resolve these issues. - She will need outpatient services, including psychiatry, therapy, and case management. We will need to clarify what County she will be living in, and where she can receive services with her insurance. 11/19 - Continue Prozac 20 mg. daily - Daughter to visit this weekend. obtain supplemental information 11/20 - remains severely depressed and unable to CFS - tolerating prozac. will consider dose escalation tomorrow 11/21 - based on new information, will change primary mood d/o dx to BPAD I, MRE depressed - will start lithium ER 450mg po qhs. common risks and benefits reviewed and pt willing to resume mood stabilizer tx. EGFR and thyroid reviewed and ok. starting on low dose secondary to h/o possible toxicity and likely h/o med noncompliance. hopefully dispo will be favorable for longitudinal med oversight and allow for regular monitoring. - as she remains very depressed, will continue prozac unchanged for now but will defer any further titration. - will need Li level in 5 days 11/22 - Continue medications as above. Continue to evaluate nausea. [place] could be culprit, but I am hesitant to discontinue after one evening as she has tolerated [place] well in the past. Pt denies headache, tremor, dizziness, hot/ cold flashes, vision changes, or other abnormalities to suggest toxicity, especially considering dose of 450mg. She denies diarrhea, vomiting, or other circumstances to reflect acute changes in lithium level. - Continue Prozac as above to address depressive symptoms. 11/23 -the patient remains depressed in the context of her bipolar disorder. Today, I will increase her dose of Prozac from 20 mg daily to 30 mg daily. I advised the patient that the source of her nausea may actually be Prozac, rather than Eskalith, and I am encouraging to wait in anticipation of the resolution of the nausea. I will change her dose form of lithium from Eskalith 450 mg at bedtime to. Lithobid 300 mg twice daily. We will also obtain a lithium level in the morning. 11/24 -The patient's lithium level this morning was 0.5 mg. Because she is also taking hydrochlorothiazide for blood pressure, we will hold her dose of Lithobid at 300 mg 2 times daily and I recommend repeating the testing in the next week. Patient continues to have considerable nausea, circumstance that was initially attributed to Eskalith, but now appears to be more likely attributable to Cipro, given that she has reportedly tolerated SSRIs and lithium in the past without nausea. She tells me that she is less depressed, and her affect has become brighter. She is also more spontaneously verbal and slightly more animated. Patient denies suicidal thoughts. 11/25 - Continue medications as above: Lithobid 300mg BID and Prozac 30mg. Will need lithium level in the next few days considering dose change. 11/26 - Increase Prozac to 40mg qAM. Continue Lithobid 300mg BID. 11/28 would be 5 days after lithium dosage change, would consider getting lithium level. - Continue to encourage group participation 11/27 and 11/28 - Continue medications as above. Continue to monitor behavior on 40mg of Prozac; however, patient's affect remains depressed but slowly improving. - Cipro discontinued as course of ABX treatment completed. Reports improvement in nausea. If ongoing, consider consolidation of Lithobid to one dose at HS. - Will require lithium level 11/29/17 - Paperwork completed and needs returned to [facility]'s 11/29 - Daughter now states she will have patient live with her after discharge, and will manage her meds and finances. Family and patient agree she is not to drive. - Will need to be referred for new aftercare, as will now be living with her daughter. - Li level re-ordered for 12/04, as antihypertensive agent was changed which will affect level. Consolidate lithium to qhs. - Discontinue hydroxyzine qhs as ineffective, and start mirtazapine 7.5 mg nightly as needed, which patient reports was previously effective for sleep. 11/30 - Continue current med - If nausea persists, consider other sources such as the lithium, SSRI or need for PPI. 12/01 -Discussed option of a trial of bupropion SR, which the patient agrees to after review of risks, benefits, and side effects. She has had limited response to fluoxetine, and it may be contributing to nausea. Discontinue fluoxetine and start bupropion SR 100 mg twice daily. Monitor for increased anxiety. -Continue lithium 600 mg nightly, with repeat level scheduled on 12/04/2017. -Continue to encourage the patient to be out of bed during the day and attending all groups. 12/02 - Continue medications as above. Wellbutrin SR 100mg BID; Lithobid 600mg qHS; Remeron 7.5mg qHS prn for sleep - Improved sleep with Remeron - Repeat UA ordered for today to determine if ongoing antibiotic treatment is necessary (2) Cognitive dysfunction 11/18 - Get collateral from friends/family and OP records. Differential includes depression/anxiety effects on cognition, component of delirium, dementia. Discussed these different possibilities with the patient, and the need for ongoing monitoring. - Scored 15/30 on the MOCA, missing 2 for visuospatial/executive, 1 for naming, 2 for attention, 3 for language, 2 for abstraction, 3 for delayed recall, and 1 for orientation. - Patient has not been driving due to concerns about her cognition, and reinforced that she should not drive until she has been cleared by a physician. -She will need ongoing monitoring and management as an outpatient to determine the underlying cause of her cognitive issues, and should be reassessed once her depression and anxiety are under better control. There is a strong family history of dementia, and I suspect that she is experiencing mild dementia symptoms in addition to her severe mood and anxiety. 11/23 - Patient has some difficulty recalling details, such as her previous medications, but seems to have a fairly reasonable command of her own history. It is not clear to me if she may be in part having symptoms of a "pseudodementia " associated with her depression, although the patient says that even when she is in normal mood she is having a lot of trouble remembering things like doctor' s appointments, scheduled activities. 11/29 - Repeat MOCA 25/30. - Social work reviewed recs for no driving with family who agree. Patient also aware and in agreement. (3) Anxiety 11/18 -endorses symptoms of generalized anxiety and PTSD, but has a limited historian unable to make a definitive diagnosis. Start with getting records from the [facility] and [facility], and start SSRI as above. Hydroxyzine as needed for sleep and anxiety. She would benefit from outpatient therapy. 11/23 -the patient reports that she has been less anxious recently, and attributes this possibly to her medications. (4) UTI (urinary tract infection) Complete 5 day course of Septra. 11/19 - Not sensitive to Septra. - Switch to Cipro 500 mg. q12 h X 7 days 11/20 - tolerating cipro. continue 7 day course 11/24 -now appears that the patient's nausea may be secondary to Cipro. She is aware that she is taking a seven-day course, and wants to complete the course of treatment with Cipro in order to treat her urinary tract infection. The patient reports that she is not having symptoms of UTI at this point, such as pain, burning, frequency, urgency, or urinary discoloration. 11/26 - Cipro d/c'd today as treatment course is finished. Will monitor for resolution of nausea, likely associated with this course of medication. 12/02 - Repeat UA with culture if indicated ordered for today. (5) Type 2 diabetes mellitus without complications Continue home dose of metformin and lisinopril. 11/25 - Daily bedside glucose ordered to ensure diabetes is adequately managed. (6) Arthritis Continue home dose of Meloxicam, and f/u with PCP, Dr. Ivana Andersen in [place]. (7) Hypertension 11/28 - patient with HTN today, on lisinopril 20mg. Need to monitor lithium levels closely with this medication or especially if lisinopril is changed. - internal medicine consult placed for assistance in further treatment of BP (sees Kurt Saenz) spoke with Dr Mcgraw. would like to avoid diuretic type BP meds due to interactions with lithium levels if possible. 11/29 - Appreciate hospitalist's recommendations, switched from HCTZ and lisinopril to amlodipine. BP in normal range today. 12/02 - Pt tolerating amlodipine well; recent blood pressures reviewed and are within normal range. Nausea - 12/01 - ondansetron as needed, antibiotic discontinued 11/25/2017, and fluoxetine discontinued 12/01/2017. Treat constipation, as this may be contributing, and continue to monitor. Consider a trial of a PPI to target GERD. Constipation - 12/01 -continue with prune juice, gentle exercise, magnesium hydroxide as needed , and add MiraLAX up to once daily as needed. Encourage her to drink water, and notify staff of progress. Discharge / Aftercare Planning Primary Care Physician: Name: Shoaib Cruz PA-C, [facility] Date of Appointment: Dec 02, 2017 Time of Appointment: 2:45 pm Appointment Notes: [address] [place], [place] [id number] [address] Psychiatrist: Name: Tawana LOW intake Date of Appointment: Dec 09, 2017 Time of Appointment: 10:45 Appointment Notes: [id number] [facility] [place] [address] Therapist: Name: Tawana Randall Date of Appointment: Dec 07, 2017 Time of Appointment: 8:00 am Appointment Notes: [address] [facility] [place] [address] Filler Shredder Helper: Name: None Other: Name of Appointment #1: [facility] Long-Term Appointment #1 Notes: [address] [place] [address] [place] [address] Visit Code E&M Code: 73295 Inventory Assets Strengths: Willing for treatment, supportive friend, has providers recently Needs: Truthfulness in treatment, social services specialist assistance with housing, supports, aftercare, criminal charges Risk Factors Assessment : Yes /single/: Yes Higher / Fall in social status: Yes Health problems: Yes Mental Health Diagnoses: Yes Substance use disorders: No Previous attempt: No Family history of suicide: No Previous psychiatric stay: Yes Hopelessness: Yes Smoker: No Protective Factors Assessment : No Responsible for young children: No Employed: No Stable relationships: No Supportive family: No Good rapport with provider: No Absence of risk factors above: No Data Vital Signs Last 24 Hrs: Date Time Temp Pulse Resp B/P (MAP) Pulse Ox O2 Delivery O2 Flow Rate FiO2 12/02/17 06:42 36.8 75 20 126/75 77 126/79 Meds Administered Last 24 Hrs: Meds Administered (Past 24Hrs) Medications (Trade) Dose Ordered Sig/Thi Route Start Time Stop Time Status Last Admin Dose Admin Polyethylene (Miralax Powder Packet) 17 gm ONE ONCE PO 11/30/17 14:15 11/30/17 14:16 DC 11/30/17 14:24 17 GM Docusate Sodium (coLACE CAP) 100 mg BID PO 12/01/17 22:00 12/31/17 21:59 12/02/17 08:50 100 MG Docusate Sodium (coLACE CAP) 100 mg 1037 ONCE PO 12/01/17 10:37 12/01/17 11:01 DC 12/01/17 12:24 100 MG Bupropion HCl (Wellbutrin-Sr Tab) 100 mg BID@0900,1400 PO 12/01/17 14:00 12/31/17 13:59 12/02/17 08:51 100 MG Bupropion HCl (Wellbutrin-Sr Tab) 100 mg 1037 ONCE PO 12/01/17 10:37 12/01/17 11:01 DC 12/01/17 12:24 100 MG
[2017-12-02] MEDS: LITHIUM CARBONATE SR 300 MG TAB (LITHOBID) PO SCH (22:27)
[2017-12-02] MEDS: MIRTAZAPINE TAB 15 MG TAB PO PRN (22:29)
[2017-12-03 06:31] VITALS: BP_SYST 124; BP_SYST 135; BP_DIAS 76; BP_DIAS 77; PULSE 73; PULSE 76; TEMP 36.4
[2017-12-03] MEDS: FLUTICASONE PROPIONATE NA SPR 16 GM BTL NAE SCH (09:02)
[2017-12-03] MEDS: AMLODIPINE BESYLATE 5 MG TAB PO SCH (09:03)
[2017-12-03] MEDS: BuPROPion SR 100 MG TABCR PO SCH ×2 (09:03→14:06)
[2017-12-03] MEDS: METFORMIN HCL 500 MG TAB PO SCH ×2 (09:03→17:32)
[2017-12-03] MEDS: DOCUSATE SODIUM 100 MG CAP PO SCH ×2 (09:03→21:19)
[2017-12-03] MEDS: MELOXICAM 7.5 MG TAB PO SCH (09:03)
--- NOTE | 2017-12-03 10:08 | Psych Management Progress Note ---
Psychiatry Miscellaneous Date of Service: Dec 03, 2017. Patient seen, MS assessed. Rates mood as 4/10 but "satisfied". Encouraged cooperation with care and treatment plan as outlined by allied health prescriber.
--- NOTE | 2017-12-03 12:39 | Psychiatric Progress Notes ---
Progress Note Date of Service Dec 03, 2017. Interval History Maria M is a 62-year-old / white female who is currently homeless, reports a history of bipolar disorder but gives symptoms consistent with depression and anxiety and has most recently been on unopposed antidepressant treatment, has multiple medical problems and a very complex social history, who presents with worsening mood and suicidal ideation. Chief Complaint "I'm still feeling pretty good. Things are looking a little brighter". Subjective Patient was seen & assessed interval progress reviewed with Treatment Team. Staff reports the patient's affect is slightly improving. Pt's UA returned without signs of ongoing UTI, therefore MNPR was discontinued. Pt was seen today to assess progress since admission. Pt states she is doing "pretty good" and has noticed that she feels a little better today. We discussed medications and she feels that her current regimen has been helpful for her in the last few days. She denies any side effects at this time. Discussed [place] level to be drawn tomorrow morning. Referral for [facility] partial program was discussed and patient feels that it will be good for her. She updates this provider that she will be going home to live with her daughter at discharge. Pt states, "things are looking a little brighter" and denies SI recently. Pt denies any other questions or concerns at this encounter. Review of Systems Psych: denies symptoms other than stated above Constitutional: denied Cardiovascular: denied GI: denied Neurologic: denied Remainder of 10 body systems also reviewed and denied other than noted above. Sleep Information Total Hours of Sleep: 7.00 Meal Information Percent of Breakfast Consumed: 100 Percent of Lunch Consumed: 90 Percent of Dinner Consumed: 100 Mental Status Exam During interview pt is: alert and oriented, cooperative Appearance: appropriately dressed (t-shirt and sweatpants), appropriately groomed Eye contact is: good Motor behavior is: steady gait & station, no abnormal motor movements, psychomotor retardation (less so today) Speech: normal in rate, rhythm & volume (noticeable improvement in amount and rate of speech provided in answers to questions) Affect: mood congruent, blunted Mood is: other ("I'm feeling better, a little brighter") Thought process: goal directed, linear, logical Thought content: reality based without delusions Suicidal thought are: denied Homicidal thoughts are: denied Hallucinations: denies auditory, denies visual Cognition: other (mild impairment in all spheres - 25/30 on MOCA) Intelligence estimated to be: average Insight: fair Judgement: fair Medication Trials Patient poor historian, medication trials largely unknown. States she has tried zolpidem, lorazepam, and trazodone for sleep, all of which were ineffective. Hydroxyzine has been ineffective for sleep here. Zeph[place]hills -stable on it for years. Depakote. Fluoxetine -brief trial during this hospitalization up to 40 mg daily, switching to bupropion due to limited response and question of constipation. Impression Pt reports improvement in mood with recent medication changes. Due to [place] level tomorrow (12/04). Will continue current medications at this time and continue to monitor for signs of improvement vs. signs of manic episode. Pt to be discharged home to her daughter's house with referrals for a partial program to add structure to her day. Pt feels this will be helpful. Despite mild improvement in affect, stability of mood needs to be monitored as she is at high risk for decompensation if discharged too early. Requires ongoing inpatient mental health treatment to monitor mood with recent medication changes and observe for prolonged stability. Plan (1) Bipolar 1 disorder 11/18 - Pt poor historian, will need to get collateral information from daughter or friend she's been staying with. - Get records from [facility] and [facility] in [place] to clarify diagnosis and past treatments. - Although patient reports a diagnosis of bipolar, she doesn't endorse symptoms c/w anton, and reports she was prescribed venlafaxine unopposed, which would not be consistent with a bipolar diagnosis either. Will treat an unipolar depression for now, and start fluoxetine 20mg, titrate as tolerated, while monitoring for activation/destabilization. Advised patient that her diagnosis is unclear and we need to get additional information, and warned of risk of activation of SSRI. - Q 15 min checks for safety. Participate in groups and programming, work on healthy coping skills and discharge safety plan. - Of note, the patient has 2 preliminary hearings in [facility], one on 2017 another on 12/09/2017. She claims no memory of being arrested, but will need to follow up to resolve these issues. - She will need outpatient services, including psychiatry, therapy, and case management. We will need to clarify what County she will be living in, and where she can receive services with her insurance. 11/19 - Continue Prozac 20 mg. daily - Daughter to visit this weekend. obtain supplemental information 11/20 - remains severely depressed and unable to CFS - tolerating prozac. will consider dose escalation tomorrow 11/21 - based on new information, will change primary mood d/o dx to BPAD I, MRE depressed - will start lithium ER 450mg po qhs. common risks and benefits reviewed and pt willing to resume mood stabilizer tx. EGFR and thyroid reviewed and ok. starting on low dose secondary to h/o possible toxicity and likely h/o med noncompliance. hopefully dispo will be favorable for longitudinal med oversight and allow for regular monitoring. - as she remains very depressed, will continue prozac unchanged for now but will defer any further titration. - will need Li level in 5 days 11/22 - Continue medications as above. Continue to evaluate nausea. [place] could be culprit, but I am hesitant to discontinue after one evening as she has tolerated [place] well in the past. Pt denies headache, tremor, dizziness, hot/ cold flashes, vision changes, or other abnormalities to suggest toxicity, especially considering dose of 450mg. She denies diarrhea, vomiting, or other circumstances to reflect acute changes in lithium level. - Continue Prozac as above to address depressive symptoms. 11/23 -the patient remains depressed in the context of her bipolar disorder. Today, I will increase her dose of Prozac from 20 mg daily to 30 mg daily. I advised the patient that the source of her nausea may actually be Prozac, rather than Eskalith, and I am encouraging to wait in anticipation of the resolution of the nausea. I will change her dose form of lithium from Eskalith 450 mg at bedtime to. Lithobid 300 mg twice daily. We will also obtain a lithium level in the morning. 11/24 -The patient's lithium level this morning was 0.5 mg. Because she is also taking hydrochlorothiazide for blood pressure, we will hold her dose of Lithobid at 300 mg 2 times daily and I recommend repeating the testing in the next week. Patient continues to have considerable nausea, circumstance that was initially attributed to Eskalith, but now appears to be more likely attributable to Cipro, given that she has reportedly tolerated SSRIs and lithium in the past without nausea. She tells me that she is less depressed, and her affect has become brighter. She is also more spontaneously verbal and slightly more animated. Patient denies suicidal thoughts. 11/25 - Continue medications as above: Lithobid 300mg BID and Prozac 30mg. Will need lithium level in the next few days considering dose change. 11/26 - Increase Prozac to 40mg qAM. Continue Lithobid 300mg BID. 11/28 would be 5 days after lithium dosage change, would consider getting lithium level. - Continue to encourage group participation 11/27 and 11/28 - Continue medications as above. Continue to monitor behavior on 40mg of Prozac; however, patient's affect remains depressed but slowly improving. - Cipro discontinued as course of ABX treatment completed. Reports improvement in nausea. If ongoing, consider consolidation of Lithobid to one dose at HS. - Will require lithium level 11/29/17 - Paperwork completed and needs returned to [facility]'s 11/29 - Daughter now states she will have patient live with her after discharge, and will manage her meds and finances. Family and patient agree she is not to drive. - Will need to be referred for new aftercare, as will now be living with her daughter. - Li level re-ordered for 12/04, as antihypertensive agent was changed which will affect level. Consolidate lithium to qhs. - Discontinue hydroxyzine qhs as ineffective, and start mirtazapine 7.5 mg nightly as needed, which patient reports was previously effective for sleep. 11/30 - Continue current med - If nausea persists, consider other sources such as the lithium, SSRI or need for PPI. 12/01 -Discussed option of a trial of bupropion SR, which the patient agrees to after review of risks, benefits, and side effects. She has had limited response to fluoxetine, and it may be contributing to nausea. Discontinue fluoxetine and start bupropion SR 100 mg twice daily. Monitor for increased anxiety. -Continue lithium 600 mg nightly, with repeat level scheduled on 12/04/2017. -Continue to encourage the patient to be out of bed during the day and attending all groups. 12/02 - Continue medications as above. Wellbutrin SR 100mg BID; Lithobid 600mg qHS; Remeron 7.5mg qHS prn for sleep - Improved sleep with Remeron - Repeat UA ordered for today to determine if ongoing antibiotic treatment is necessary 12/03 - Continue Lithobid 600mg qHS. [place] level to be drawn 12/04. - Continue Remeron 7.5mg qHS prn insomnia; and Wellbutrin SR 100mg BID. - UA reviewed, showing resolution of UTI. (2) Cognitive dysfunction 11/18 - Get collateral from friends/family and OP records. Differential includes depression/anxiety effects on cognition, component of delirium, dementia. Discussed these different possibilities with the patient, and the need for ongoing monitoring. - Scored 15/30 on the MOCA, missing 2 for visuospatial/executive, 1 for naming, 2 for attention, 3 for language, 2 for abstraction, 3 for delayed recall, and 1 for orientation. - Patient has not been driving due to concerns about her cognition, and reinforced that she should not drive until she has been cleared by a physician. -She will need ongoing monitoring and management as an outpatient to determine the underlying cause of her cognitive issues, and should be reassessed once her depression and anxiety are under better control. There is a strong family history of dementia, and I suspect that she is experiencing mild dementia symptoms in addition to her severe mood and anxiety. 11/23 - Patient has some difficulty recalling details, such as her previous medications, but seems to have a fairly reasonable command of her own history. It is not clear to me if she may be in part having symptoms of a "pseudodementia " associated with her depression, although the patient says that even when she is in normal mood she is having a lot of trouble remembering things like doctor' s appointments, scheduled activities. 11/29 - Repeat MOCA /30. - Social work reviewed recs for no driving with family who agree. Patient also aware and in agreement. (3) Anxiety 11/18 -endorses symptoms of generalized anxiety and PTSD, but has a limited historian unable to make a definitive diagnosis. Start with getting records from the [facility] and [facility], and start SSRI as above. Hydroxyzine as needed for sleep and anxiety. She would benefit from outpatient therapy. 11/23 -the patient reports that she has been less anxious recently, and attributes this possibly to her medications. (4) UTI (urinary tract infection) Complete 5 day course of Septra. 11/19 - Not sensitive to Septra. - Switch to Cipro 500 mg. q12 h X 7 days 11/20 - tolerating cipro. continue 7 day course 11/24 -now appears that the patient's nausea may be secondary to Cipro. She is aware that she is taking a seven-day course, and wants to complete the course of treatment with Cipro in order to treat her urinary tract infection. The patient reports that she is not having symptoms of UTI at this point, such as pain, burning, frequency, urgency, or urinary discoloration. 11/26 - Cipro d/c'd today as treatment course is finished. Will monitor for resolution of nausea, likely associated with this course of medication. 12/02 - Repeat UA with culture if indicated ordered for today. 12/03 - UA results reviewed, resolution of UTI, MNPR discontinued, taken off contact precautions. (5) Type 2 diabetes mellitus without complications Continue home dose of metformin and lisinopril. 11/25 - Daily bedside glucose ordered to ensure diabetes is adequately managed. (6) Arthritis Continue home dose of Meloxicam, and f/u with PCP, Dr. Ivana Andersen in [place]. (7) Hypertension 11/28 - patient with HTN today, on lisinopril 20mg. Need to monitor lithium levels closely with this medication or especially if lisinopril is changed. - internal medicine consult placed for assistance in further treatment of BP (sees Kurt Saenz) spoke with Dr Mcgraw. would like to avoid diuretic type BP meds due to interactions with lithium levels if possible. 11/29 - Appreciate hospitalist's recommendations, switched from HCTZ and lisinopril to amlodipine. BP in normal range today. 12/02 - Pt tolerating amlodipine well; recent blood pressures reviewed and are within normal range. Nausea - 12/01 - ondansetron as needed, antibiotic discontinued 11/25/2017, and fluoxetine discontinued 12/01/2017. Treat constipation, as this may be contributing, and continue to monitor. Consider a trial of a PPI to target GERD. Constipation - 12/01 -continue with prune juice, gentle exercise, magnesium hydroxide as needed , and add MiraLAX up to once daily as needed. Encourage her to drink water, and notify staff of progress. Discharge / Aftercare Planning Primary Care Physician: Name: Dr. Clemente - [facility] Date of Appointment: Dec 20, 2017 Time of Appointment: 9:30 am Appointment Notes: [address] [place] [address] Psychiatrist: Name: Tawana LOW intake Date of Appointment: Dec 09, 2017 Time of Appointment: 10:45 Appointment Notes: [address] [facility] [place] [address] Therapist: Name: DEVANTE Stubbs, Tawana Mckeon Date of Appointment: Dec 07, 2017 Time of Appointment: 8:00 am Appointment Notes: [address] [facility] [place] [address] Induction Brazer: Name: None Partial or Psych Rehab: Name: [facility] Appointment Notes: [address] [place] [address] Visit Code E&M Code: 85714 Inventory Assets Strengths: Willing for treatment, supportive friend, has providers recently Needs: Truthfulness in treatment, public health social worker assistance with housing, supports, aftercare, criminal charges Risk Factors Assessment : Yes /single/: Yes Higher / Fall in social status: Yes Health problems: Yes Mental Health Diagnoses: Yes Substance use disorders: No Previous attempt: No Family history of suicide: No Previous psychiatric stay: Yes Hopelessness: Yes Smoker: No Protective Factors Assessment : No Responsible for young children: No Employed: No Stable relationships: No Supportive family: No Good rapport with provider: No Absence of risk factors above: No Data Vital Signs Last 24 Hrs: Date Time Temp Pulse Resp B/P (MAP) Pulse Ox O2 Delivery O2 Flow Rate FiO2 12/03/17 06:31 36.4 73 20 135/76 76 124/77 Meds Administered Last 24 Hrs: Meds Administered (Past 24Hrs) Medications (Trade) Dose Ordered Sig/Thi Route Start Time Stop Time Status Last Admin Dose Admin Docusate Sodium (coLACE CAP) 100 mg BID PO 12/01/17 22:00 12/31/17 21:59 12/03/17 09:03 100 MG Bupropion HCl (Wellbutrin-Sr Tab) 100 mg BID@0900,1400 PO 12/01/17 14:00 12/31/17 13:59 12/03/17 09:03 100 MG Lab Results Last 24 Hrs: Last 24 Hours Test 12/03/17 08:54 Bedside Glucose 153 mg/dl
[2017-12-03] MEDS: LITHIUM CARBONATE SR 300 MG TAB (LITHOBID) PO SCH (21:19)
[2017-12-03] MEDS: MIRTAZAPINE TAB 15 MG TAB PO PRN (22:31)
[2017-12-04 07:10] VITALS: BP_SYST 119; BP_SYST 137; BP_DIAS 71; BP_DIAS 83; PULSE 69; PULSE 72; TEMP 36.4
[2017-12-04] MEDS: FLUTICASONE PROPIONATE NA SPR 16 GM BTL NAE SCH (09:23)
[2017-12-04] MEDS: DOCUSATE SODIUM 100 MG CAP PO SCH ×2 (09:23→21:07)
[2017-12-04] MEDS: METFORMIN HCL 500 MG TAB PO SCH ×2 (09:23→17:21)
[2017-12-04] MEDS: BuPROPion SR 100 MG TABCR PO SCH ×2 (09:24→13:26)
[2017-12-04] MEDS: AMLODIPINE BESYLATE 5 MG TAB PO SCH (09:24)
[2017-12-04] MEDS: MELOXICAM 7.5 MG TAB PO SCH (09:24)
--- NOTE | 2017-12-04 11:20 | Psychiatric Progress Notes ---
Progress Note Date of Service Dec 04, 2017. Interval History Maria M is a 62-year-old / white female who is currently homeless, reports a history of bipolar disorder but gives symptoms consistent with depression and anxiety and has most recently been on unopposed antidepressant treatment, has multiple medical problems and a very complex social history, who presented with worsening mood and suicidal ideation. Chief Complaint "didn't sleep the best". Subjective Patient was seen & assessed interval progress reviewed with nursing. [place] level drawn this am. Patient will be residing with her daughter at discharge. Review of Systems Psych: denies symptoms other than stated above Constitutional: denied Cardiovascular: denied GI: denied Neurologic: denied Remainder of 10 body systems also reviewed and denied other than noted above. Sleep Information Total Hours of Sleep: 6.50 Meal Information Percent of Breakfast Consumed: 80 Percent of Lunch Consumed: 100 Percent of Dinner Consumed: 100 Mental Status Exam During interview pt is: alert and oriented, cooperative Appearance: appropriately dressed, appropriately groomed Eye contact is: good Motor behavior is: steady gait & station, no abnormal motor movements Speech: normal in rate, rhythm & volume Affect: mood congruent, constricted Mood is: other ("improving") Thought process: clear, coherent Thought content: reality based without delusions Suicidal thought are: denied Homicidal thoughts are: denied Hallucinations: denies auditory, denies visual Cognition: language grossly intact Intelligence estimated to be: average Insight: fair (improving) Judgement: fair Medication Trials Patient initially poor historian, medication trials largely unknown. States she has tried zolpidem, lorazepam, and trazodone for sleep, all of which were ineffective. Hydroxyzine has been ineffective for sleep here. [place] -stable on it for years. Depakote. Fluoxetine -brief trial during this hospitalization up to 40 mg daily, switching to bupropion due to limited response and question of constipation. Impression Pt to be discharged home to her daughter's house soon with referrals for a partial program to add structure to her day. Therapeutic on lithium. Plan (1) Bipolar 1 disorder 11/18 - Pt poor historian, will need to get collateral information from daughter or friend she's been staying with. - Get records from [facility] in [place] to clarify diagnosis and past treatments. - Although patient reports a diagnosis of bipolar, she doesn't endorse symptoms c/w anton, and reports she was prescribed venlafaxine unopposed, which would not be consistent with a bipolar diagnosis either. Will treat an unipolar depression for now, and start fluoxetine 20mg, titrate as tolerated, while monitoring for activation/destabilization. Advised patient that her diagnosis is unclear and we need to get additional information, and warned of risk of activation of SSRI. - Q 15 min checks for safety. Participate in groups and programming, work on healthy coping skills and discharge safety plan. - Of note, the patient has 2 preliminary hearings in [facility], one on 2017 another on 12/09/2017. She claims no memory of being arrested, but will need to follow up to resolve these issues. - She will need outpatient services, including psychiatry, therapy, and case management. We will need to clarify what County she will be living in, and where she can receive services with her insurance. 11/19 - Continue Prozac 20 mg. daily - Daughter to visit this weekend. obtain supplemental information 11/20 - remains severely depressed and unable to CFS - tolerating prozac. will consider dose escalation tomorrow 11/21 - based on new information, will change primary mood d/o dx to BPAD I, MRE depressed - will start lithium ER 450mg po qhs. common risks and benefits reviewed and pt willing to resume mood stabilizer tx. EGFR and thyroid reviewed and ok. starting on low dose secondary to h/o possible toxicity and likely h/o med noncompliance. hopefully dispo will be favorable for longitudinal med oversight and allow for regular monitoring. - as she remains very depressed, will continue prozac unchanged for now but will defer any further titration. - will need Li level in 5 days 11/22 - Continue medications as above. Continue to evaluate nausea. [place] could be culprit, but I am hesitant to discontinue after one evening as she has tolerated [place] well in the past. Pt denies headache, tremor, dizziness, hot/ cold flashes, vision changes, or other abnormalities to suggest toxicity, especially considering dose of 450mg. She denies diarrhea, vomiting, or other circumstances to reflect acute changes in lithium level. - Continue Prozac as above to address depressive symptoms. 11/23 -the patient remains depressed in the context of her bipolar disorder. Today, I will increase her dose of Prozac from 20 mg daily to 30 mg daily. I advised the patient that the source of her nausea may actually be Prozac, rather than Eskalith, and I am encouraging to wait in anticipation of the resolution of the nausea. I will change her dose form of lithium from Eskalith 450 mg at bedtime to. Lithobid 300 mg twice daily. We will also obtain a lithium level in the morning. 11/24 -The patient's lithium level this morning was 0.5 mg. Because she is also taking hydrochlorothiazide for blood pressure, we will hold her dose of Lithobid at 300 mg 2 times daily and I recommend repeating the testing in the next week. Patient continues to have considerable nausea, circumstance that was initially attributed to Eskalith, but now appears to be more likely attributable to Cipro, given that she has reportedly tolerated SSRIs and lithium in the past without nausea. She tells me that she is less depressed, and her affect has become brighter. She is also more spontaneously verbal and slightly more animated. Patient denies suicidal thoughts. 11/25 - Continue medications as above: Lithobid 300mg BID and Prozac 30mg. Will need lithium level in the next few days considering dose change. 11/26 - Increase Prozac to 40mg qAM. Continue Lithobid 300mg BID. 11/28 would be 5 days after lithium dosage change, would consider getting lithium level. - Continue to encourage group participation 11/27 and 11/28 - Continue medications as above. Continue to monitor behavior on 40mg of Prozac; however, patient's affect remains depressed but slowly improving. - Cipro discontinued as course of ABX treatment completed. Reports improvement in nausea. If ongoing, consider consolidation of Lithobid to one dose at HS. - Will require lithium level 11/29/17 - Paperwork completed and needs returned to [facility] 11/29 - Daughter now states she will have patient live with her after discharge, and will manage her meds and finances. Family and patient agree she is not to drive. - Will need to be referred for new aftercare, as will now be living with her daughter. - Li level re-ordered for 12/04, as antihypertensive agent was changed which will affect level. Consolidate lithium to qhs. - Discontinue hydroxyzine qhs as ineffective, and start mirtazapine 7.5 mg nightly as needed, which patient reports was previously effective for sleep. 11/30 - Continue current med - If nausea persists, consider other sources such as the lithium, SSRI or need for PPI. 12/01 -Discussed option of a trial of bupropion SR, which the patient agrees to after review of risks, benefits, and side effects. She has had limited response to fluoxetine, and it may be contributing to nausea. Discontinue fluoxetine and start bupropion SR 100 mg twice daily. Monitor for increased anxiety. -Continue lithium 600 mg nightly, with repeat level scheduled on 12/04/2017. -Continue to encourage the patient to be out of bed during the day and attending all groups. 12/02 - Continue medications as above. Wellbutrin SR 100mg BID; Lithobid 600mg qHS; Remeron 7.5mg qHS prn for sleep - Improved sleep with Remeron - Repeat UA ordered for today to determine if ongoing antibiotic treatment is necessary 12/03 - Continue Lithobid 600mg qHS. [place] level to be drawn 12/04. - Continue Remeron 7.5mg qHS prn insomnia; and Wellbutrin SR 100mg BID. - UA reviewed, showing resolution of UTI. (2) Cognitive dysfunction 11/18 - Get collateral from friends/family and OP records. Differential includes depression/anxiety effects on cognition, component of delirium, dementia. Discussed these different possibilities with the patient, and the need for ongoing monitoring. - Scored 15/30 on the MOCA, missing 2 for visuospatial/executive, 1 for naming, 2 for attention, 3 for language, 2 for abstraction, 3 for delayed recall, and 1 for orientation. - Patient has not been driving due to concerns about her cognition, and reinforced that she should not drive until she has been cleared by a physician. -She will need ongoing monitoring and management as an outpatient to determine the underlying cause of her cognitive issues, and should be reassessed once her depression and anxiety are under better control. There is a strong family history of dementia, and I suspect that she is experiencing mild dementia symptoms in addition to her severe mood and anxiety. 11/23 - Patient has some difficulty recalling details, such as her previous medications, but seems to have a fairly reasonable command of her own history. It is not clear to me if she may be in part having symptoms of a "pseudodementia " associated with her depression, although the patient says that even when she is in normal mood she is having a lot of trouble remembering things like doctor' s appointments, scheduled activities. 11/29 - Repeat MOCA . - Social work reviewed recs for no driving with family who agree. Patient also aware and in agreement. (3) Anxiety 11/18 -endorses symptoms of generalized anxiety and PTSD, but has a limited historian unable to make a definitive diagnosis. Start with getting records from the [facility] and [facility], and start SSRI as above. Hydroxyzine as needed for sleep and anxiety. She would benefit from outpatient therapy. 11/23 -the patient reports that she has been less anxious recently, and attributes this possibly to her medications. (4) UTI (urinary tract infection) Complete 5 day course of Septra. 11/19 - Not sensitive to Septra. - Switch to Cipro 500 mg. q12 h X 7 days 11/20 - tolerating cipro. continue 7 day course 11/24 -now appears that the patient's nausea may be secondary to Cipro. She is aware that she is taking a seven-day course, and wants to complete the course of treatment with Cipro in order to treat her urinary tract infection. The patient reports that she is not having symptoms of UTI at this point, such as pain, burning, frequency, urgency, or urinary discoloration. 11/26 - Cipro d/c'd today as treatment course is finished. Will monitor for resolution of nausea, likely associated with this course of medication. 12/02 - Repeat UA with culture if indicated ordered for today. 12/03 - UA results reviewed, resolution of UTI, MNPR discontinued, taken off contact precautions. (5) Type 2 diabetes mellitus without complications Continue home dose of metformin and lisinopril. 11/25 - Daily bedside glucose ordered to ensure diabetes is adequately managed. (6) Arthritis Continue home dose of Meloxicam, and f/u with PCP, Dr. Ivana Andersen in [place]. (7) Hypertension 11/28 - patient with HTN today, on lisinopril 20mg. Need to monitor lithium levels closely with this medication or especially if lisinopril is changed. - internal medicine consult placed for assistance in further treatment of BP (sees Kurt Saenz) spoke with Dr Mcgraw. would like to avoid diuretic type BP meds due to interactions with lithium levels if possible. 11/29 - Appreciate hospitalist's recommendations, switched from HCTZ and lisinopril to amlodipine. BP in normal range today. 12/02 - Pt tolerating amlodipine well; recent blood pressures reviewed and are within normal range. Nausea - 12/01 - ondansetron as needed, antibiotic discontinued 11/25/2017, and fluoxetine discontinued 12/01/2017. Treat constipation, as this may be contributing, and continue to monitor. Consider a trial of a PPI to target GERD. Constipation - 12/01 -continue with prune juice, gentle exercise, magnesium hydroxide as needed , and add MiraLAX up to once daily as needed. Encourage her to drink water, and notify staff of progress. Discharge / Aftercare Planning Primary Care Physician: Name: Dr. Clemente - [facility] Date of Appointment: Dec 20, 2017 Time of Appointment: 9:30 am Appointment Notes: 1 [facility] [address] [place] [address] Psychiatrist: Name: Tawana LOW intake Date of Appointment: Dec 09, 2017 Time of Appointment: 10:45 a.m. Appointment Notes: [address] [facility] [place] [address] Therapist: Name: Tawana Randall Date of Appointment: Dec 07, 2017 Time of Appointment: 8:00 a.m. Appointment Notes: [address] [facility] [place] [address] Tax Processor: Name: [facility] MH/ID Date of Appointment: Dec 10, 2017 Time of Appointment: 2:00 p.m. Appointment Notes: [address] [facility] TRACY Lucas Partial or Psych Rehab: Name: [facility] Appointment Notes: [address] [facility] [address] [place] [address] Visit Code E&M Code: 97863 Inventory Assets Strengths: Willing for treatment, supportive friend, has providers recently Needs: Truthfulness in treatment, social insurance adviser assistance with housing, supports, aftercare, criminal charges Risk Factors Assessment : Yes /single/: Yes Higher / Fall in social status: Yes Health problems: Yes Mental Health Diagnoses: Yes Substance use disorders: No Previous attempt: No Family history of suicide: No Previous psychiatric stay: Yes Hopelessness: Yes Smoker: No Protective Factors Assessment : No Responsible for young children: No Employed: No Stable relationships: No Supportive family: No Good rapport with provider: No Absence of risk factors above: No Data Vital Signs Last 24 Hrs: Date Time Temp Pulse Resp B/P (MAP) Pulse Ox O2 Delivery O2 Flow Rate FiO2 12/04/17 07:10 36.4 69 18 137/83 72 119/71 Lab Results Last 24 Hrs: Last 24 Hours Test 12/04/17 08:38 12/04/17 08:49 [place] Level 0.8 mMOL/L Bedside Glucose 127 mg/dl
[2017-12-04] MEDS: LITHIUM CARBONATE SR 300 MG TAB (LITHOBID) PO SCH (21:06)
[2017-12-04] MEDS: MIRTAZAPINE TAB 15 MG TAB PO PRN (22:48)
[2017-12-05 06:57] VITALS: BP_SYST 120; BP_SYST 130; BP_DIAS 80; BP_DIAS 84; PULSE 71; TEMP 36.9
[2017-12-05] MEDS: FLUTICASONE PROPIONATE NA SPR 16 GM BTL NAE SCH (09:23)
[2017-12-05] MEDS: METFORMIN HCL 500 MG TAB PO SCH ×2 (09:24→17:42)
[2017-12-05] MEDS: AMLODIPINE BESYLATE 5 MG TAB PO SCH (09:24)
[2017-12-05] MEDS: MELOXICAM 7.5 MG TAB PO SCH (09:24)
[2017-12-05] MEDS: BuPROPion SR 100 MG TABCR PO SCH ×2 (09:24→13:53)
[2017-12-05] MEDS: DOCUSATE SODIUM 100 MG CAP PO SCH ×2 (09:24→21:51)
--- NOTE | 2017-12-05 09:40 | Psychiatric Progress Notes ---
Progress Note Date of Service Dec 05, 2017. Interval History Maria M is a 62-year-old / white female who is currently homeless, reports a history of bipolar disorder but gives symptoms consistent with depression and anxiety and has most recently been on unopposed antidepressant treatment, has multiple medical problems and a very complex social history, who presented with worsening mood and suicidal ideation. Chief Complaint "still room for improvement on mood and sleep". Subjective Patient was seen & assessed interval progress reviewed with Nursing. Somewhat restless night as got a roommate but also a male peer was intrussive and grabbed meds out of her hand. Denies injury. She is anticipating a visit from her daughter today with whom she plans to reside after discharge. She is able to process her ambivalence. Review of Systems Psych: denies symptoms other than stated above Constitutional: denied other than fatigue Cardiovascular: denied GI: denied Neurologic: denied Remainder of 10 body systems also reviewed and denied other than noted above. Sleep Information Total Hours of Sleep: 6.50 Meal Information Percent of Breakfast Consumed: 80 Percent of Lunch Consumed: 80 Percent of Dinner Consumed: 90 Mental Status Exam During interview pt is: alert and oriented, cooperative Appearance: appropriately dressed, appropriately groomed Eye contact is: good Motor behavior is: steady gait & station, no abnormal motor movements Speech: normal in rate, rhythm & volume Affect: mood congruent, constricted Mood is: other ("tired") Thought process: clear, coherent Thought content: reality based without delusions Suicidal thought are: denied Homicidal thoughts are: denied Hallucinations: denies auditory, denies visual Cognition: language grossly intact Intelligence estimated to be: average Insight: fair (improving) Judgement: fair Medication Trials Patient initially poor historian, medication trials largely unknown. States she has tried zolpidem, lorazepam, and trazodone for sleep, all of which were ineffective. Hydroxyzine has been ineffective for sleep here. [place] -stable on it for years. Depakote. Fluoxetine -brief trial during this hospitalization up to 40 mg daily, switching to bupropion due to limited response and question of constipation. Impression Pt to be discharged home to her daughter's house soon with referrals for a partial program to add structure to her day. Therapeutic on lithium. Plan (1) Bipolar 1 disorder 11/18 - Pt poor historian, will need to get collateral information from daughter or friend she's been staying with. - Get records from [facility] in [place] to clarify diagnosis and past treatments. - Although patient reports a diagnosis of bipolar, she doesn't endorse symptoms c/w anton, and reports she was prescribed venlafaxine unopposed, which would not be consistent with a bipolar diagnosis either. Will treat an unipolar depression for now, and start fluoxetine 20mg, titrate as tolerated, while monitoring for activation/destabilization. Advised patient that her diagnosis is unclear and we need to get additional information, and warned of risk of activation of SSRI. - Q 15 min checks for safety. Participate in groups and programming, work on healthy coping skills and discharge safety plan. - Of note, the patient has 2 preliminary hearings in [facility], one on 2017 another on 12/09/2017. She claims no memory of being arrested, but will need to follow up to resolve these issues. - She will need outpatient services, including psychiatry, therapy, and case management. We will need to clarify what County she will be living in, and where she can receive services with her insurance. 3 - Continue Prozac 20 mg. daily - Daughter to visit this weekend. obtain supplemental information 11/20 - remains severely depressed and unable to CFS - tolerating prozac. will consider dose escalation tomorrow 11/21 - based on new information, will change primary mood d/o dx to BPAD I, MRE depressed - will start lithium ER 450mg po qhs. common risks and benefits reviewed and pt willing to resume mood stabilizer tx. EGFR and thyroid reviewed and ok. starting on low dose secondary to h/o possible toxicity and likely h/o med noncompliance. hopefully dispo will be favorable for longitudinal med oversight and allow for regular monitoring. - as she remains very depressed, will continue prozac unchanged for now but will defer any further titration. - will need Li level in 5 days 5 - Continue medications as above. Continue to evaluate nausea. [place] could be culprit, but I am hesitant to discontinue after one evening as she has tolerated [place] well in the past. Pt denies headache, tremor, dizziness, hot/ cold flashes, vision changes, or other abnormalities to suggest toxicity, especially considering dose of 450mg. She denies diarrhea, vomiting, or other circumstances to reflect acute changes in lithium level. - Continue Prozac as above to address depressive symptoms. 11/23 -the patient remains depressed in the context of her bipolar disorder. Today, I will increase her dose of Prozac from 20 mg daily to 30 mg daily. I advised the patient that the source of her nausea may actually be Prozac, rather than Eskalith, and I am encouraging to wait in anticipation of the resolution of the nausea. I will change her dose form of lithium from Eskalith 450 mg at bedtime to. Lithobid 300 mg twice daily. We will also obtain a lithium level in the morning. 11/24 -The patient's lithium level this morning was 0.5 mg. Because she is also taking hydrochlorothiazide for blood pressure, we will hold her dose of Lithobid at 300 mg 2 times daily and I recommend repeating the testing in the next week. Patient continues to have considerable nausea, circumstance that was initially attributed to Eskalith, but now appears to be more likely attributable to Cipro, given that she has reportedly tolerated SSRIs and lithium in the past without nausea. She tells me that she is less depressed, and her affect has become brighter. She is also more spontaneously verbal and slightly more animated. Patient denies suicidal thoughts. 11/25 - Continue medications as above: Lithobid 300mg BID and Prozac 30mg. Will need lithium level in the next few days considering dose change. 11/26 - Increase Prozac to 40mg qAM. Continue Lithobid 300mg BID. 11/28 would be 5 days after lithium dosage change, would consider getting lithium level. - Continue to encourage group participation 11/27 and 11/28 - Continue medications as above. Continue to monitor behavior on 40mg of Prozac; however, patient's affect remains depressed but slowly improving. - Cipro discontinued as course of ABX treatment completed. Reports improvement in nausea. If ongoing, consider consolidation of Lithobid to one dose at HS. - Will require lithium level 11/29/17 - Paperwork completed and needs returned to [facility] 11/29 - Daughter now states she will have patient live with her after discharge, and will manage her meds and finances. Family and patient agree she is not to drive. - Will need to be referred for new aftercare, as will now be living with her daughter. - Li level re-ordered for 12/04, as antihypertensive agent was changed which will affect level. Consolidate lithium to qhs. - Discontinue hydroxyzine qhs as ineffective, and start mirtazapine 7.5 mg nightly as needed, which patient reports was previously effective for sleep. 11/30 - Continue current med - If nausea persists, consider other sources such as the lithium, SSRI or need for PPI. 12/01 -Discussed option of a trial of bupropion SR, which the patient agrees to after review of risks, benefits, and side effects. She has had limited response to fluoxetine, and it may be contributing to nausea. Discontinue fluoxetine and start bupropion SR 100 mg twice daily. Monitor for increased anxiety. -Continue lithium 600 mg nightly, with repeat level scheduled on 12/04/2017. -Continue to encourage the patient to be out of bed during the day and attending all groups. 12/02 - Continue medications as above. Wellbutrin SR 100mg BID; Lithobid 600mg qHS; Remeron 7.5mg qHS prn for sleep - Improved sleep with Remeron - Repeat UA ordered for today to determine if ongoing antibiotic treatment is necessary 12/03 - Continue Lithobid 600mg qHS. [place] level to be drawn 12/04. - Continue Remeron 7.5mg qHS prn insomnia; and Wellbutrin SR 100mg BID. - UA reviewed, showing resolution of UTI. 12/04 --increase Remeron to 15 mg hs and make standing order as requiring consistently. Reviewed that less activating than Wellbutrin given hx of chung --again reviewed lithium level and that if Mobic dosing is changed should monitor levels as drug-drug interaction (2) Cognitive dysfunction 11/18 - Get collateral from friends/family and OP records. Differential includes depression/anxiety effects on cognition, component of delirium, dementia. Discussed these different possibilities with the patient, and the need for ongoing monitoring. - Scored 15/30 on the MOCA, missing 2 for visuospatial/executive, 1 for naming, 2 for attention, 3 for language, 2 for abstraction, 3 for delayed recall, and 1 for orientation. - Patient has not been driving due to concerns about her cognition, and reinforced that she should not drive until she has been cleared by a physician. -She will need ongoing monitoring and management as an outpatient to determine the underlying cause of her cognitive issues, and should be reassessed once her depression and anxiety are under better control. There is a strong family history of dementia, and I suspect that she is experiencing mild dementia symptoms in addition to her severe mood and anxiety. 11/23 - Patient has some difficulty recalling details, such as her previous medications, but seems to have a fairly reasonable command of her own history. It is not clear to me if she may be in part having symptoms of a "pseudodementia " associated with her depression, although the patient says that even when she is in normal mood she is having a lot of trouble remembering things like doctor' s appointments, scheduled activities. 11/29 - Repeat MOCA . - Social work reviewed recs for no driving with family who agree. Patient also aware and in agreement. (3) Anxiety 11/18 -endorses symptoms of generalized anxiety and PTSD, but has a limited historian unable to make a definitive diagnosis. Start with getting records from the [facility] and , and start SSRI as above. Hydroxyzine as needed for sleep and anxiety. She would benefit from outpatient therapy. 11/23 -the patient reports that she has been less anxious recently, and attributes this possibly to her medications. (4) UTI (urinary tract infection) Complete 5 day course of Septra. 11/19 - Not sensitive to Septra. - Switch to Cipro 500 mg. q12 h X 7 days 11/20 - tolerating cipro. continue 7 day course 11/24 -now appears that the patient's nausea may be secondary to Cipro. She is aware that she is taking a seven-day course, and wants to complete the course of treatment with Cipro in order to treat her urinary tract infection. The patient reports that she is not having symptoms of UTI at this point, such as pain, burning, frequency, urgency, or urinary discoloration. 11/26 - Cipro d/c'd today as treatment course is finished. Will monitor for resolution of nausea, likely associated with this course of medication. 12/02 - Repeat UA with culture if indicated ordered for today. 12/03 - UA results reviewed, resolution of UTI, MNPR discontinued, taken off contact precautions. (5) Type 2 diabetes mellitus without complications Continue home dose of metformin and lisinopril. 11/25 - Daily bedside glucose ordered to ensure diabetes is adequately managed. (6) Arthritis Continue home dose of Meloxicam, and f/u with PCP, Dr. Ivana Andersen in [place]. (7) Hypertension 11/28 - patient with HTN today, on lisinopril 20mg. Need to monitor lithium levels closely with this medication or especially if lisinopril is changed. - internal medicine consult placed for assistance in further treatment of BP (sees Kurt Saenz) spoke with Dr Mcgraw. would like to avoid diuretic type BP meds due to interactions with lithium levels if possible. 11/29 - Appreciate hospitalist's recommendations, switched from HCTZ and lisinopril to amlodipine. BP in normal range today. 12/02 - Pt tolerating amlodipine well; recent blood pressures reviewed and are within normal range. Discharge / Aftercare Planning Primary Care Physician: Name: Dr. Clemente - [facility] Date of Appointment: Dec 20, 2017 Time of Appointment: 9:30 am Appointment Notes: [address] [facility] [address] [place] [address] Psychiatrist: Name: Tawana LOW intake Date of Appointment: Dec 09, 2017 Time of Appointment: 10:45 a.m. Appointment Notes: [address] [facility] [place] [address] Therapist: Name: Tawana Randall Date of Appointment: Dec 07, 2017 Time of Appointment: 8:00 a.m. Appointment Notes: [address] [facility] [place] [address] Director Cpg: Name: [facility] Date of Appointment: Dec 10, 2017 Time of Appointment: 2:00 p.m. Appointment Notes: [address] [facility] [place] Partial or Psych Rehab: Name: [facility] Appointment Notes: [address] [facility] [address] [place] [address] Visit Code E&M Code: 39941 Inventory Assets Strengths: Willing for treatment, supportive friend, has providers recently Needs: Truthfulness in treatment, social work nurse assistance with housing, supports, aftercare, criminal charges Risk Factors Assessment : Yes /single/: Yes Higher / Fall in social status: Yes Health problems: Yes Mental Health Diagnoses: Yes Substance use disorders: No Previous attempt: No Family history of suicide: No Previous psychiatric stay: Yes Hopelessness: Yes Smoker: No Protective Factors Assessment : No Responsible for young children: No Employed: No Stable relationships: No Supportive family: No Good rapport with provider: No Absence of risk factors above: No Data Vital Signs Last 24 Hrs: Date Time Temp Pulse Resp B/P (MAP) Pulse Ox O2 Delivery O2 Flow Rate FiO2 12/05/17 06:57 36.9 71 18 130/84 71 120/80 Lab Results Last 24 Hrs: Last 24 Hours Test 12/05/17 08:59 Bedside Glucose 153 mg/dl
[2017-12-05] MEDS: LITHIUM CARBONATE SR 300 MG TAB (LITHOBID) PO SCH (21:51)
[2017-12-05] MEDS ORDERED: MIRTAZAPINE TAB 15 MG TAB PO SCH ×2 (22:00)
[2017-12-06 06:54] VITALS: BP_SYST 112; BP_SYST 126; BP_DIAS 71; BP_DIAS 75; PULSE 70; PULSE 73; TEMP 36.9
[2017-12-06] MEDS: DOCUSATE SODIUM 100 MG CAP PO SCH (08:26)
[2017-12-06] MEDS: FLUTICASONE PROPIONATE NA SPR 16 GM BTL NAE SCH (08:26)
[2017-12-06] MEDS: METFORMIN HCL 500 MG TAB PO SCH (08:27)
[2017-12-06] MEDS: MELOXICAM 7.5 MG TAB PO SCH (08:27)
[2017-12-06] MEDS: AMLODIPINE BESYLATE 5 MG TAB PO SCH (08:27)
[2017-12-06] MEDS: BuPROPion SR 100 MG TABCR PO SCH (08:27)
[2017-12-06] MEDS ORDERED: NRV5 PO (09:12)
[2017-12-06] MEDS ORDERED: WLLSR100 PO (09:12)
[2017-12-06] MEDS ORDERED: LTHCR300 PO (09:12)
[2017-12-06] MEDS ORDERED: RMR15 PO (09:12)
--- NOTE | 2017-12-06 09:32 | Discharge Instructions ---
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 Creatinine 0.78 Est Creatinine Clear Calc Drug Dose 87.0 Estimated GFR () 93.8 Estimated GFR (Non- 80.9 BUN/Creatinine Ratio 15.4 Random Glucose 147 Calcium Level 9.4 Magnesium Level 1.9 Total Bilirubin 0.5 Direct Bilirubin < 0.1 Aspartate Amino Transferase (AST) 24 Alanine Aminotransferase (ALT) 36 Alkaline Phosphatase 127 Total Creatine Kinase 55 Creatine Kinase MB 2.3 Creatine Kinase MB Ratio 4.2 Troponin I < 0.015 Total Protein 7.2 Albumin 3.4 Lipase 165 Thyroid Stimulating Hormone (TSH) 1.880 Urine Color YELLOW Urine Appearance CLEAR Urine pH 6.5 Urine Specific [place] 1.011 Urine Protein NEG Urine Glucose (UA) NEG Urine Ketones NEG Urine Occult Blood NEG Urine Nitrite POS Urine Bilirubin NEG Urine Urobilinogen NEG Urine Leukocyte Esterase SMALL Urine WBC (Auto) 10-30 Urine RBC (Auto) 0-4 Urine Hyaline Casts (Auto) 0 Urine Epithelial Cells (Auto) 0-5 Urine Bacteria (Auto) 4+ Urine Opiates Screen NEG Urine Methadone, Qualitative NEG Urine Barbiturates NEG Urine Phencyclidine (PCP) Level NEG Ur Amphetamine/Methamphetamine NEG MDMA (Ecstasy) Screen NEG Urine Benzodiazepines Screen NEG Urine Cocaine Metabolite NEG Urine Marijuana (THC) NEG Ethyl Alcohol mg/dL < 3.0 Mccloud Level 0.5 Test 12/02/17 11:00 12/04/17 08:38 12/04/17 08:49 12/05/17 08:59 Urine Color DK YELLOW Urine Appearance CLEAR Urine pH 6.5 Urine Specific [place] 1.022 Urine Protein NEG Urine Glucose (UA) TRACE Urine Ketones TRACE Urine Occult Blood NEG Urine Nitrite NEG Urine Bilirubin NEG Urine Urobilinogen NEG Urine Leukocyte Esterase NEG Mccloud Level 0.8 POC Glucose 127 153 Total Time Total Time Spent (min): Greater than 30 minutes Total Time Included: examination of the patient, discharge planning, medication reconciliation, communication with other providers Tobacco Cessation at Discharge Smoking Status: Former Smoker FDA approved Prescription: non-smoker
== END 2017-12-06 11:35 | disposition home or self-care (01) | DRG 885 ==
LOC: EDBD 11:43 → C.EDA 11:44 → C.MHU 17:45 → ENRESERV 18:38 → C.MHU 11-20 11:30
PROVIDERS: ADMIT Psychiatry & Neurology Child & Adolescent Psychiatry; ATTEND Psychiatry & Neurology Psychiatry
DX: F31.9 Bipolar disorder, unspecified (principal); N39.0 Urinary tract infection, site not specified; F41.1 Generalized anxiety disorder; E11.9 Type 2 diabetes mellitus without complications; F45.9 Somatoform disorder, unspecified; M19.90 Unspecified osteoarthritis, unspecified site; F43.10 Post-traumatic stress disorder, unspecified; I10 Essential (primary) hypertension; E78.5 Hyperlipidemia, unspecified; Z90.710 Acquired absence of both cervix and uterus; R01.1 Cardiac murmur, unspecified; M06.9 Rheumatoid arthritis, unspecified; Z59.0 Homelessness; Z88.5 Allergy status to narcotic agent; Z88.0 Allergy status to penicillin; Z87.891 Personal history of nicotine dependence; Z86.73 Personal history of transient ischemic attack (TIA), and cerebral infarction without residual deficits